=== PATIENT | female | born 1990 | race Caucasian/White ===

== ENCOUNTER 2017-06-01 02:31 | Emergency (ER) | payer MEDICARE, MEDICAID ==
[2015-03-27 08:58] VITALS: Ht 167.6 cm; Wt 97.5 kg
[~2017-06-01] VITALS: Ht 167.6 cm; Wt 97.5 kg
[~2017-06-01 02:31] MED LIST: ACE3 PO; ACET-1966 PO; ACET500T68 PO; ALBU8.5H IH; ALBUDR INH; AMO500 PO; AMOX-362 PO; AMOX-559 PO; ANTIDEPRESSENT; ASPI-663 PO; AUG500 PO; AZIT-1 PO; AZIT1PAC21 PO; AZIT500T47 PO; BACDS PO; BACL-51 PO; CALC-515 PO; CEP500 PO; CEPH-13 PO; CEPH500C24 PO; CHLO473M14 MM; CIP500 PO; CIPR-326 PO; CODE473S6 PO; CYC10 PO; CYCL10TA29 PO; DEPO SHOT; DIC10 PO; DICL-195 PO; DIPH-1 PO; DOXY-179 PO; DOXY150T6 PO; FEXO-67; FEXO-67 PO; FLUO-202 PO; GUAI-334 PO; HYDR-4309 PO; HYDR2TAB74 PO; IBU600 PO; IBUP-1671 PO; IBUP-56 PO; IBUP800T37 PO; LOR5 PO; LOR5/325 PO; LOR75 PO; MED150I IM; MET10 PO; METH-543 PO; METH4TAB66 PO; METR250 PO; MON10; MON10 PO; NAP550 PO; NAPR-724 PO; NAPR275T86 PO; NAPR500T75 PO; NO; NO ROUTINE MEDS; NO RTN MEDS; OMEP-218 PO; OND4 PO; ONDA4TAB PO; OXYC-373 PO; OXYC-689 PO; OXYC-865 PO; PANT40TA65 PO; PEN250 PO; PENI-24 PO; PER PO; PNV1TABL70 PO; PRE10; PRED-314 PO; PREN-85 PO; PRO25 PO; PROAIRPT; PROAIRPT IH; PROM-100 PO; PROM-110 PO; PROM25S PR; TIZA4CAP PO; TRA50 PO; TRAZ-156 PO; TYLENOL; VITA1CAP50 PO; [UNRECOGNIZED DRUG - CODE] PO; [UNRECOGNIZED DRUG - CODE] PO
--- NOTE | 2017-06-01 02:38 | ER Report ---
History and Physical Time Seen By MD: 02:37 HPI/ROS CHIEF COMPLAINT: Right arm pain HISTORY OF PRESENT ILLNESS: 26-year-old female presents ambulatory to the ER complaining of right arm pain which woke her from her sleep. She describes throbbing 8/10 pain aggravated by movement and palpation. Patient's 3 weeks out from a dog bite involving his right upper extremity. She had 3 lacerations which were sutured closed. She was treated with Augmentin. Her sutures removed in 7 days. Patient's now approximately 3 weeks out. There is still some soft tissue swelling. There is no evidence of infection. Patient has not been using the hand. There is severe atrophy. Patient apparently was seen by her primary care physician and referred [facility] for a orthopedic evaluation. That appointment is on June 09. Patient states she ran out of her Vicodin 2 weeks ago, prescribed by her primary care doctor, Dr. Handy. Patient unfortunately is on a treatment program here in the ER restricting use of opiates. Allergies: Coded Allergies: latex (Verified Allergy, Intermediate, RASH, 06/01/17) ketorolac (Verified Allergy, Mild, RASH, 06/01/17) tramadol (Verified Allergy, Unknown, RASH, 06/01/17) Uncoded Allergies: BLUEBERRY (Allergy, Severe, ANAPHYLAXIS, 02/20/12) BAND-AIDES (Allergy, Mild, RASH, 11/02/10) Home Meds Reported Medications Trazodone Hcl (TRAZODONE HCL) 50 Mg Tablet, 50 MG PO QHS 05/11/17 Fluoxetine Hcl (PROZAC) 20 Mg Capsule, 20 MG PO QDAY, CAPSULE 05/11/17 Pantoprazole Sodium (PANTOPRAZOLE SODIUM) 40 Mg Tablet.dr, 40 MG PO QDAY, TAB.SR 10/29/16 Discontinued Scripts Amoxicillin/Pot Clav 875-125 Mg Tab (AUGMENTIN 875-125 TABLET) 1 Each Tablet, 1 TAB PO Q12H, #20 TAB 0 Refills Prov:CORAL GOLDSTEIN MD 05/12/17 Hx Smoking: Yes (1/2 PPD FOR EIGHT YEARS) Smoking Status: Current: Every Day Smoker, Light Tobacco Smoker Exposure to Second Hand Smoke?: Yes Hx Substance Use Disorder: No Hx Alcohol Use: No Constitutional Vital Sign - Last 24 Hours 06/01/17 06/01/17 02:37 03:01 Temp 97.9 Pulse 71 65 Resp 20 14 B/P (MAP) 118/78 109/70 (83) Pulse Ox 96 95 O2 Delivery Room Air Room Air Physical Exam General appearance: Alert no distress. Respiratory: Chest is non tender, lungs are clear to auscultation. Cardiac: Regular rate and rhythm Extremities: Right upper extremity has some well-healed lacerations. There is some edema to the hand and wrist. There is minimal tenderness on palpation. Patient has significantly decreased range of motion. There is no warmth, redness or fluctuance noted on palpation. All digits are neurovascularly intact. DIFFERENTIAL DIAGNOSIS: After history and physical exam differential diagnosis was considered for tendinitis, arthritis, disuse, atrophy, neuropathy. Medical Decision Making ED Course/Re-evaluation ED Course Patient was admitted to an examination room. H&P was done. The differential diagnoses was considered. On clinical examination. She has a neurovascularly intact right hand. There is significant tenderness and pain with passive movement of the fingers and wrist. There is no erythema, warmth or fluctuance noted on palpation. Patient is on a restricted treatment plan the opiates are allowed. Patient has allergies to NSAIDs, Toradol, and ketorolac. Patient advised to take Tylenol for pain and follow-up with her primary care who prescribed her opiate pain relievers. Patient was given Decadron 4 mg to reduce the inflammation in her hand. She is advised to apply warm compresses or heating pad and perform gentle range of motion exercises. She was advised to follow-up with primary care for referral to physical therapy to strengthen and break up scar tissue. Decision to Disposition Date: Jun 01, 2017 Decision to Disposition Time: 02:51 Depart Departure Latest Vital Signs Vital Signs Date Time Temp Pulse Resp B/P (MAP) Pulse Ox O2 Delivery O2 Flow Rate FiO2 06/01/17 03:01 65 14 109/70 (83) 95 Room Air 06/01/17 02:37 97.9 Impression: Primary Impression: Right arm pain Additional Impression: History of dog bite Condition: Improved Disposition: HOME OR SELF-CARE Referrals: JORDAN HANDY DO (PCP) Patient Instructions: Arm Pain (ED) Additional Instructions: Apply a heating pad to your hand lash arm for 30-60 minutes, then do gentle range of motion exercises to break up the scar tissue that developed Alternate ibuprofen 600 mg and Tylenol 650 mg every 4 hours as needed for pain relief Follow-up with your primary care Dr. Handy for referral for physical therapy [facility] Problem Qualifiers CAPO VARGAS DO Jun 01, 2017 02:38
[2017-06-01] MEDS ORDERED: DEXAMETHASONE 4 MG TAB PO ONE (02:55)
[2017-06-01 03:01] VITALS: BP 109/70
== END 2017-06-01 03:05 | disposition home or self-care (01) ==
LOC: ER 02:41
DX: M79.601 Pain in right arm (principal)
CPT/HCPCS: 99282; J8540

== ENCOUNTER 2017-07-19 16:31 | Emergency (ER) | payer MEDICARE, MEDICAID ==
[2015-03-27 08:58] VITALS: BMI 32.8
[~2017-07-19 16:31] MED LIST changes: -NAPR-724 PO; +NAPR500T31 PO
[2017-07-19] MEDS ORDERED: AMOXICILLIN 500 MG CAP PO ONE (16:40)
--- NOTE | 2017-07-19 16:52 | ER Report ---
History and Physical Time Seen By MD: 16:41 Hx. of Stated Complaint: DENTAL PAIN FOR 1 WEEK HPI/ROS CHIEF COMPLAINT: Dental pain HISTORY OF PRESENT ILLNESS: Patient is a 26-year-old female with complaint of left lower dental pain. Pain began approximately one week ago but became very severe last night into this morning. She is tried Clove oil she has tried Orajel and Tylenol without significant relief of pain. Allergies: Coded Allergies: latex (Verified Allergy, Intermediate, RASH, 06/01/17) ketorolac (Verified Allergy, Mild, RASH, 06/01/17) tramadol (Verified Allergy, Unknown, RASH, 06/01/17) Uncoded Allergies: BLUEBERRY (Allergy, Severe, ANAPHYLAXIS, 02/20/12) BAND-AIDES (Allergy, Mild, RASH, 11/02/10) Home Meds Reported Medications Trazodone Hcl (TRAZODONE HCL) 50 Mg Tablet, 50 MG PO QHS 05/11/17 Fluoxetine Hcl (PROZAC) 20 Mg Capsule, 20 MG PO QDAY, CAPSULE 05/11/17 Pantoprazole Sodium (PANTOPRAZOLE SODIUM) 40 Mg Tablet.dr, 40 MG PO QDAY, TAB.SR 10/29/16 Past Medical/Surgical History Noncontributory Hx Smoking: Yes (1/2 PPD FOR EIGHT YEARS) Smoking Status: Current: Every Day Smoker, Light Tobacco Smoker Exposure to Second Hand Smoke?: Yes Hx Substance Use Disorder: No Hx Alcohol Use: No Constitutional Vital Sign - Last 24 Hours 07/19/17 16:37 Pulse 111 Resp 20 B/P (MAP) 134/74 Pulse Ox 96 O2 Delivery Room Air Physical Exam General Appearance: Alert, no distress. Eyes: Pupils equal and round no pallor or injection. ENT, Mouth: Ears: Tympanic membranes are normal. Nose: No bleeding. Mouth: Mucous membranes are moist. Patient with impacted wisdom tooth left mandibular molar with inflammation to the gingiva no evidence of abscess Throat: No erythema or exudates there is no tonsillar hypertrophy and uvula is midline. Musculoskeletal: Neck is supple non tender, no adenopathy. Skin: Warm and dry, no rashes. Medical Decision Making ED Course/Re-evaluation ED Course 07/19/2017 4:45:01 pm plan at this time will be oral pain medication antibiotics and referral to dentist Decision to Disposition Date: Jul 19, 2017 Decision to Disposition Time: 16:55 Depart Departure Latest Vital Signs Vital Signs Date Time Temp Pulse Resp B/P (MAP) Pulse Ox O2 Delivery O2 Flow Rate FiO2 07/19/17 16:37 111 20 134/74 96 Room Air Impression: Primary Impression: Pain, dental Condition: Improved Disposition: HOME OR SELF-CARE Referrals: JORDAN HANDY DO (PCP) New Scripts Oxycodone Hcl/Acetaminophen (PERCOCET 5-325 MG TABLET) 1 Each Tablet 1 EACH PO Q4H for PAIN, #25 TAB 0 Refills Prov: RAMON KAY MD 07/19/17 Amoxicillin (AMOXICILLIN) 500 Mg Capsule 1 CAP PO Q8H, #21 CAPSULE 0 Refills TAKE ONE CAPSULE BY MOUTH EVERY 8 HOURS Prov: RAMON KAY MD 07/19/17 Patient Instructions: Dental Caries (DC) Additional Instructions: Schedule a follow-up appointment with your dentist as soon as possible RAMON KAY MD Jul 19, 2017 16:52
[2017-07-19] MEDS ORDERED: OXYC-865 PO (17:01)
[2017-07-19] MEDS ORDERED: AMOX-362 PO (17:01)
[2017-07-19 17:13] VITALS: BP 111/64
== END 2017-07-19 17:15 | disposition home or self-care (01) ==
LOC: ER 16:37
DX: K08.89 Other specified disorders of teeth and supporting structures (principal)
CPT/HCPCS: 99283; A9270

== ENCOUNTER 2017-08-02 00:06 | Emergency (ER) | payer MEDICARE, MEDICAID ==
[2015-03-27 08:58] VITALS: Ht 165.1 cm; Wt 102.1 kg
[~2017-08-02] VITALS: Ht 165.1 cm; Wt 102.1 kg
--- NOTE | 2017-08-02 00:09 | ER Report ---
History and Physical Time Seen By MD: 00:08 HPI/ROS CHIEF COMPLAINT: Right upper quadrant pain HISTORY OF PRESENT ILLNESS: 26-year-old female presents ambulatory to the ER complaining of sharp right middle quadrant and right flank pain for one week. Become much worse over the last 48 hours. She is concerned she may have an appendicitis. Patient notes severe nausea but no vomiting. She denies diarrhea or dysuria. She is status post partial hysterectomy. Patient denies history of kidney stones. Review old records shows patient was seen here approximately 10 days ago treated for tooth abscess with amoxicillin and Percocet. REVIEW OF SYSTEMS: Respiratory: No cough, no dyspnea. Cardiovascular: No chest pain, no palpitations. Gastrointestinal: As above Musculoskeletal: As above Allergies: Coded Allergies: latex (Verified Allergy, Intermediate, RASH, 08/02/17) ketorolac (Verified Allergy, Mild, RASH, 08/02/17) tramadol (Verified Allergy, Unknown, RASH, 08/02/17) Uncoded Allergies: BLUEBERRY (Allergy, Severe, ANAPHYLAXIS, 02/20/12) BAND-AIDES (Allergy, Mild, RASH, 11/02/10) Home Meds Active Scripts Promethazine Hcl (PROMETHAZINE HCL) 25 Mg Tablet, 25 MG PO Q4H Y for NAUSEA/ VOMITING, #14 TAB Prov:CAPO VARGAS DO 08/02/17 Reported Medications Trazodone Hcl (TRAZODONE HCL) 50 Mg Tablet, 50 MG PO QHS 05/11/17 Fluoxetine Hcl (PROZAC) 20 Mg Capsule, 20 MG PO QDAY, CAPSULE 05/11/17 Pantoprazole Sodium (PANTOPRAZOLE SODIUM) 40 Mg Tablet.dr, 40 MG PO QDAY, TAB.SR 10/29/16 Discontinued Scripts Oxycodone Hcl/Acetaminophen (PERCOCET 5-325 MG TABLET) 1 Each Tablet, 1 EACH PO Q4H for PAIN, #25 TAB 0 Refills Prov:RAMON KAY MD 07/19/17 Amoxicillin (AMOXICILLIN) 500 Mg Capsule, 1 CAP PO Q8H, #21 CAPSULE 0 Refills TAKE ONE CAPSULE BY MOUTH EVERY 8 HOURS Prov:RAMON KAY MD 07/19/17 Reviewed Nurses Notes: Yes Old Medical Records Reviewed: Yes Hx Smoking: Yes (1/2 PPD FOR EIGHT YEARS) Smoking Status: Current: Every Day Smoker, Light Tobacco Smoker Exposure to Second Hand Smoke?: Yes Hx Substance Use Disorder: No Hx Alcohol Use: No Constitutional Vital Sign - Last 24 Hours 08/02/17 08/02/17 08/02/17 08/02/17 00:06 00:16 00:18 00:21 Temp 98.4 Pulse ??? 76 76 Resp 20 B/P (MAP) 126/73 (90) 126/73 Pulse Ox 92 91 O2 Delivery Room Air 08/02/17 08/02/17 08/02/17 08/02/17 00:26 00:30 00:36 00:51 Pulse 81 60 B/P (MAP) 116/71 (86) 116/75 (89) Pulse Ox 92 95 08/02/17 08/02/17 08/02/17 08/02/17 01:21 01:30 01:36 01:41 Pulse 58 62 61 B/P (MAP) 106/55 (72) Pulse Ox 97 96 96 08/02/17 08/02/17 08/02/17 08/02/17 01:56 02:00 02:11 02:20 Pulse 82 55 ??? B/P (MAP) 113/76 (88) Pulse Ox 96 97 Physical Exam General Appearance: The patient is alert, has no immediate need for airway protection and no current signs of toxicity. Vital signs stable, afebrile, pulse ox normal HEENT: Pupils equal and round no injection. Oropharynx without redness or exudate Respiratory: Chest is non tender, lungs are clear to auscultation. Cardiac: regular rate and rhythm Gastrointestinal: Abdomen is soft, moderate right upper and middle quadrant tenderness, no CVA tenderness, mild right lower quadrant tenderness with guarding but no rebound, no masses, bowel sounds normal. Musculoskeletal: Neck: Neck is supple and non tender. No lymphadenopathy Extremities have full range of motion and are non tender. Skin: No rashes or lesions. DIFFERENTIAL DIAGNOSIS: After history and physical exam differential diagnosis was considered for abdominal pain including but not limited to appendicitis, cholecystitis, gastritis and urinary tract infection. Medical Decision Making Data Points Result Diagram: 08/02/17 0022 08/02/17 0022 Laboratory Hematology Test 08/02/17 00:22 Red Blood Count 4.80 M/uL (4.17-5.56) Mean Corpuscular Volume 87.8 fL (80.0-96.0) Mean Corpuscular Hemoglobin 31.3 pg (26.0-33.0) Mean Corpuscular Hemoglobin Concent 35.6 g/dL (32.0-36.0) Red Cell Distribution Width 13.0 % (11.5-14.5) Mean Platelet Volume 7.5 fL (7.2-11.1) Neutrophils (%) (Auto) 58.6 % (39.4-72.5) Lymphocytes (%) (Auto) 33.0 % (17.6-49.6) Monocytes (%) (Auto) 4.8 % (4.1-12.4) Eosinophils (%) (Auto) 2.6 % (0.4-6.7) Basophils (%) (Auto) 1.0 % (0.3-1.4) Nucleated RBC Relative Count (auto) 0.0 /100WBC Neutrophils # (Auto) 4.9 K/uL (2.0-7.4) Lymphocytes # (Auto) 2.8 K/uL (1.3-3.6) Monocytes # (Auto) 0.4 K/uL (0.3-1.0) Eosinophils # (Auto) 0.2 K/uL (0.0-0.5) Basophils # (Auto) 0.1 K/uL (0.0-0.1) Nucleated RBC Absolute Count (auto) 0.00 K/uL Urine Color Yellow Urine Clarity Clear Urine pH 8.5 pH (4.8-9.5) Urine Specific Biddle 1.005 Urine Protein Trace mg/dL (NEGATIVE) Urine Glucose (UA) Negative mg/dL (NEGATIVE) Urine Ketones Negative mg/dL (NEGATIVE) Urine Blood Negative (NEGATIVE) Urine Nitrite Negative (NEGATIVE) Urine Bilirubin Negative (NEGATIVE) Urine Urobilinogen 0.2 mg/dL (0.2-1.9) Urine Leukocyte Esterase Negative (NEGATIVE) Urine RBC None /HPF (0-2/HPF) Urine WBC <1 /HPF (0-5/HPF) Urine Squamous Epithelial Cells Many /LPF (</=FEW) Urine Bacteria Negative /HPF (NONE-FEW) Urine Mucus None /HPF (NONE-FEW) Urine HCG, Qualitative Negative (NEGATIVE) Sodium Level 136 mmol/L (137-145) Potassium Level 3.8 mmol/L (3.5-5.0) Chloride Level 104 mmol/L (98-107) Carbon Dioxide Level 20 mmol/L (22-31) Blood Urea Nitrogen 15 mg/dl (7-18) Creatinine 0.90 mg/dl (0.52-1.04) Glomerular Filtration Rate Calc > 60.0 Random Glucose 86 mg/dl (75-110) Calcium Level 8.8 mg/dl (8.4-10.2) Total Bilirubin 0.2 mg/dl (0.2-1.3) Aspartate Amino Transf (AST/SGOT) 16 U/L (0-35) Alanine Aminotransferase (ALT/SGPT) 24 U/L (0-56) Alkaline Phosphatase 59 U/L (0-126) Total Protein 7.0 gm/dl (6.3-8.2) Albumin 3.7 g/dl (3.5-5.0) Amylase Level 65 U/L (0-110) Lipase 88 U/L (23-300) Chemistry Test 08/02/17 00:22 White Blood Count 8.3 k/uL (4.5-11.0) Red Blood Count 4.80 M/uL (4.17-5.56) Hemoglobin 15.0 g/dL (12.0-16.0) Hematocrit 42.2 % (34.0-47.0) Mean Corpuscular Volume 87.8 fL (80.0-96.0) Mean Corpuscular Hemoglobin 31.3 pg (26.0-33.0) Mean Corpuscular Hemoglobin Concent 35.6 g/dL (32.0-36.0) Red Cell Distribution Width 13.0 % (11.5-14.5) Platelet Count 222 K/uL (150-450) Mean Platelet Volume 7.5 fL (7.2-11.1) Neutrophils (%) (Auto) 58.6 % (39.4-72.5) Lymphocytes (%) (Auto) 33.0 % (17.6-49.6) Monocytes (%) (Auto) 4.8 % (4.1-12.4) Eosinophils (%) (Auto) 2.6 % (0.4-6.7) Basophils (%) (Auto) 1.0 % (0.3-1.4) Nucleated RBC Relative Count (auto) 0.0 /100WBC Neutrophils # (Auto) 4.9 K/uL (2.0-7.4) Lymphocytes # (Auto) 2.8 K/uL (1.3-3.6) Monocytes # (Auto) 0.4 K/uL (0.3-1.0) Eosinophils # (Auto) 0.2 K/uL (0.0-0.5) Basophils # (Auto) 0.1 K/uL (0.0-0.1) Nucleated RBC Absolute Count (auto) 0.00 K/uL Urine Color Yellow Urine Clarity Clear Urine pH 8.5 pH (4.8-9.5) Urine Specific Biddle 1.005 Urine Protein Trace mg/dL (NEGATIVE) Urine Glucose (UA) Negative mg/dL (NEGATIVE) Urine Ketones Negative mg/dL (NEGATIVE) Urine Blood Negative (NEGATIVE) Urine Nitrite Negative (NEGATIVE) Urine Bilirubin Negative (NEGATIVE) Urine Urobilinogen 0.2 mg/dL (0.2-1.9) Urine Leukocyte Esterase Negative (NEGATIVE) Urine RBC None /HPF (0-2/HPF) Urine WBC <1 /HPF (0-5/HPF) Urine Squamous Epithelial Cells Many /LPF (</=FEW) Urine Bacteria Negative /HPF (NONE-FEW) Urine Mucus None /HPF (NONE-FEW) Urine HCG, Qualitative Negative (NEGATIVE) Glomerular Filtration Rate Calc > 60.0 Calcium Level 8.8 mg/dl (8.4-10.2) Total Bilirubin 0.2 mg/dl (0.2-1.3) Aspartate Amino Transf (AST/SGOT) 16 U/L (0-35) Alanine Aminotransferase (ALT/SGPT) 24 U/L (0-56) Alkaline Phosphatase 59 U/L (0-126) Total Protein 7.0 gm/dl (6.3-8.2) Albumin 3.7 g/dl (3.5-5.0) Amylase Level 65 U/L (0-110) Lipase 88 U/L (23-300) Urinalysis Test 08/02/17 00:22 Urine Color Yellow Urine Clarity Clear Urine pH 8.5 pH (4.8-9.5) Urine Specific Biddle 1.005 Urine Protein Trace mg/dL (NEGATIVE) Urine Glucose (UA) Negative mg/dL (NEGATIVE) Urine Ketones Negative mg/dL (NEGATIVE) Urine Blood Negative (NEGATIVE) Urine Nitrite Negative (NEGATIVE) Urine Bilirubin Negative (NEGATIVE) Urine Urobilinogen 0.2 mg/dL (0.2-1.9) Urine Leukocyte Esterase Negative (NEGATIVE) Urine RBC None /HPF (0-2/HPF) Urine WBC <1 /HPF (0-5/HPF) Urine Squamous Epithelial Cells Many /LPF (</=FEW) Urine Bacteria Negative /HPF (NONE-FEW) Urine Mucus None /HPF (NONE-FEW) Urine HCG, Qualitative Negative (NEGATIVE) EKG/Imaging Imaging Results: CT scan of the abdomen and pelvis with IV contrast was obtained. The results of the study are ABDOMEN/PELVIS WITH CONTRAST HISTORY: Right flank and right lower quadrant pain. COMPARISON: 07/05/2012 and studies dating to 03/09/2009. TECHNIQUE: Axial images were obtained from the lung bases through the symphysis pubis with intravenous contrast. Delayed images were performed. Sagittal and coronal reformats were performed. One of the following dose optimization techniques was utilized in the performance of this exam: Automated exposure control; adjustment of the mA and/ or kV according to the patient's size; or use of an iterative reconstruction technique. Specific details can be referenced in the facility's radiology CT exam operational policy. CONTRAST: 75 mm IV [id number]. FINDINGS: Lower chest: There is minimal atelectasis. Liver: Normal. Gallbladder/biliary: Status post cholecystectomy. No intrahepatic or extrahepatic ductal dilation. Pancreas: Normal. Spleen: Normal. Adrenals: Normal. Kidneys/ureters/bladder: Normal. GI/mesentery/peritoneal cavity: There is a small amount of fluid in the distal esophagus. There is no bowel obstruction. There is no wall thickening or pericolonic stranding. The appendix is normal. There is no intra-abdominal free air or free fluid. Vessels: There is mild, noncalcified, eccentric atherosclerosis of the infrarenal abdominal aorta, greater then expected for age (axial image 79 series 2). No dissection. Nodes: Normal. Pelvis: Uterus is absent. Right ovary is normal. Left ovary is normal and contains a 2.3 cm cyst. Bones/vertebra/soft tissues: There there are numerous Schmorl nodes. There is mild to moderate degenerative change of the spine and there are numerous vacuum clefts. There is a limbus vertebra of L4 anterior superior endplate. There is mild wedging of T9-T10, unchanged, and likely physiologic. There are bilateral L5 pars defects. There is 2 mm anterolisthesis of L5 compared to L4. IMPRESSION: 1. Normal appendix. No findings to account for patient's symptoms. 2. Bilateral L5 pars defects with 2 mm anterolisthesis of L5 compared to L4. 3. 2.3 cm left ovarian cyst. 4. There is a small amount of fluid in the distal esophagus, compatible with gastroesophageal reflux. 5. There is mild, focal, noncalcified atherosclerosis of the infrarenal abdominal aorta, greater than expected for patient age. The study was read by the radiologist. I viewed the images myself on the PACS system. ED Course/Re-evaluation Clinical Indication for ER IV: Hydration, IV Access ED Course She was minute to an examination room. H&P was done. The differential diagnoses was considered. On clinical examination. Patient has significant tenderness in her right middle and right lower quadrant. There is some guarding but no rebound. Patient denies fever or chills. She has nausea but no vomiting. She is concerned she has an appendicitis. Diagnostic evaluation is undertaken. CT scan is unremarkable. Her laboratory studies are unremarkable. Patient's treated with IV Zofran and fluids. She is on a treatment plan restricting use of opiate pain relievers. Patient's offered Toradol, but she is allergic. She is offered tramadol, but she is allergic. Patient was given Tylenol by mouth and Motrin 600 mg by mouth. Patient's results are discussed with her. I suspect she is having colic and constipation secondary to receiving opiate pain relievers 10 days ago. Patient's advise MiraLAX and clear liquid diet Decision to Disposition Date: Aug 02, 2017 Decision to Disposition Time: 02:12 Depart Departure Latest Vital Signs Vital Signs Date Time Temp Pulse Resp B/P (MAP) Pulse Ox O2 Delivery O2 Flow Rate FiO2 08/02/17 02:20 ??? 97 08/02/17 02:00 113/76 (88) 08/02/17 00:18 98.4 20 Room Air Impression: Primary Impression: Abdominal pain Additional Impressions: Colic cramps Constipation Condition: Improved Disposition: HOME OR SELF-CARE Referrals: JORDAN HANDY DO (PCP) New Scripts Promethazine Hcl (PROMETHAZINE HCL) 25 Mg Tablet 25 MG PO Q4H Y for NAUSEA/VOMITING, #14 TAB Prov: CAPO VARGAS DO 08/02/17 Patient Instructions: Abdominal Pain (ED), Clear Liquid Diet (ED) Additional Instructions: Follow clear liquid diet for 24-48 hours Take MiraLAX 2-3 times per day Take one bottle of magnesium's citrate laxative to stimulate emptying of your bowels Use Tylenol and ibuprofen for pain relief Use Phenergan to control nausea Follow-up with primary care if unimproved in 3-5 days Problem Qualifiers Primary Impression: Abdominal pain Abdominal location: right upper quadrant Qualified Codes: R10.11 - Right upper quadrant pain Additional Impressions: Constipation Constipation type: unspecified constipation type Qualified Codes: K59.00 - Constipation, unspecified CAPO VARGAS DO Aug 02, 2017 00:09
[2017-08-02] MEDS ORDERED: ONDANSETRON 4 MG/2 ML VIAL IVP ONE (00:30)
[2017-08-02] MEDS ORDERED: NS(*) 0.9% 1000 ML BAG 1,000 ML IV ONE (00:30)
[2017-08-02 00:38] LABS: PLATELET COUNT, AUTOMATED 222 K/uL (150-450)
[2017-08-02] MEDS ORDERED: IOPAMIDOL 76% 75 ML INFUS BTL 75 ML ONE (00:43)
[2017-08-02] MEDS ORDERED: ACETAMINOPHEN 325 MG TAB PO ONE (01:35)
[2017-08-02] MEDS ORDERED: IBUPROFEN 600 MG TAB PO ONE (01:35)
--- NOTE | 2017-08-02 01:56 | RADIOLOGY IMAGING REPORT ---
FACILITY: [facility] [place] PATIENT NAME: Michelle Feldman : 1990 MR: [id number] V: [id number] EXAM DATE: ORDERING PHYSICIAN: CAPO VARGAS TECHNOLOGIST: Location: [facility] Patient: Michelle Feldman : 1990 Visit/Account:[id number] Date of Sevice: 08/02/2017 ABDOMEN/PELVIS WITH CONTRAST HISTORY: Right flank and right lower quadrant pain. COMPARISON: 07/05/2012 and studies dating to 03/09/2009. TECHNIQUE: Axial images were obtained from the lung bases through the symphysis pubis with intravenou s contrast. Delayed images were performed. Sagittal and coronal reformats were performed. One of the following dose optimization techniques was utilized in the performance of this exam: Autom ated exposure control; adjustment of the mA and/or kV according to the patient's size; or use of an i terative reconstruction technique. Specific details can be referenced in the facility's radiology CT exam operational policy. CONTRAST: 75 mm IV [id number]. FINDINGS: Lower chest: There is minimal atelectasis. Liver: Normal. Gallbladder/biliary: Status post cholecystectomy. No intrahepatic or extrahepatic ductal dilation. Pancreas: Normal. Spleen: Normal. Adrenals: Normal. Kidneys/ureters/bladder: Normal. GI/mesentery/peritoneal cavity: There is a small amount of fluid in the distal esophagus. There is no bowel obstruction. There is no wall thickening or pericolonic stranding. The appendix is normal. The re is no intra-abdominal free air or free fluid. Vessels: There is mild, noncalcified, eccentric atherosclerosis of the infrarenal abdominal aorta, gr eater then expected for age (axial image 79 series 2). No dissection. Nodes: Normal. Pelvis: Uterus is absent. Right ovary is normal. Left ovary is normal and contains a 2.3 cm cyst. Bones/vertebra/soft tissues: There there are numerous Schmorl nodes. There is mild to moderate degene rative change of the spine and there are numerous vacuum clefts. There is a limbus vertebra of L4 ant erior superior endplate. There is mild wedging of T9-T10, unchanged, and likely physiologic. There ar e bilateral L5 pars defects. There is 2 mm anterolisthesis of L5 compared to L4. IMPRESSION: 1. Normal appendix. No findings to account for patient's symptoms. 2. Bilateral L5 pars defects with 2 mm anterolisthesis of L5 compared to L4. 3. 2.3 cm left ovarian cyst. 4. There is a small amount of fluid in the distal esophagus, compatible with gastroesophageal reflux. 5. There is mild, focal, noncalcified atherosclerosis of the infrarenal abdominal aorta, greater than expected for patient age. Report Dictated By: Margie Harrington at 08/02/2017 1:34 AM Report E-Signed By: Margie Harrington at 08/02/2017 1:51 AM WSN:[id number]
[2017-08-02 02:00] VITALS: BP 113/76
[2017-08-02] MEDS ORDERED: PROMETHAZINE HCL 25 MG TAB TH 2 TAB/BOTTLE PO ONE (02:15)
[2017-08-02] MEDS ORDERED: PROM-110 PO (02:15)
== END 2017-08-02 02:26 | disposition home or self-care (01) ==
LOC: ER 00:28
DX: K59.00 Constipation, unspecified (principal); R10.84 Generalized abdominal pain
CPT/HCPCS: 74177; 81001; 81025; 82150; 83690; 85025; 96361; 96374; 99284; A9270; J2405; J7030; Q9967; 82040; 82247; 82310; 82374; 82435; 82565; 82947; 84075; 84132; 84155; 84295; 84450; 84460; 84520

== ENCOUNTER 2017-08-11 17:18 | Emergency (ER) | payer MEDICARE, MEDICAID ==
[2015-03-27 08:58] VITALS: Wt 102.1 kg
--- NOTE | 2017-08-11 17:29 | ER Report ---
History and Physical Time Seen By MD: 17:28 HPI/ROS CHIEF COMPLAINT: dental pain HISTORY OF PRESENT ILLNESS: This is a 26 year old female. She is having dental pain, left lower jaw. Poor dentition, with multiple problems in the past. Taking Ibuprofen and Tylenol without relief. Some swelling under jaw and face associated with this. Allergies: Coded Allergies: latex (Verified Allergy, Intermediate, RASH, 08/11/17) ketorolac (Verified Allergy, Mild, RASH, 08/11/17) tramadol (Verified Allergy, Unknown, RASH, 08/11/17) Uncoded Allergies: BLUEBERRY (Allergy, Severe, ANAPHYLAXIS, 02/20/12) BAND-AIDES (Allergy, Mild, RASH, 11/02/10) Home Meds Active Scripts Amoxicillin (AMOXICILLIN) 500 Mg Capsule, 1 CAP PO Q8H, #30 CAPSULE 0 Refills Prov:CORAL GOLDSTEIN MD 08/11/17 Promethazine Hcl (PROMETHAZINE HCL) 25 Mg Tablet, 25 MG PO Q4H Y for NAUSEA/ VOMITING, #14 TAB Prov:CAPO VARGAS DO 08/02/17 Reported Medications Acetaminophen (TYLENOL EXTRA STRENGTH) 500 Mg Tablet, 1000 MG PO Q4H, TAB 08/11/17 Ibuprofen (IBUPROFEN) 800 Mg Tablet, 2 TAB PO Q4H, TAB 08/11/17 Trazodone Hcl (TRAZODONE HCL) 50 Mg Tablet, 50 MG PO QHS 05/11/17 Fluoxetine Hcl (PROZAC) 20 Mg Capsule, 20 MG PO QDAY, CAPSULE 05/11/17 Pantoprazole Sodium (PANTOPRAZOLE SODIUM) 40 Mg Tablet.dr, 40 MG PO QDAY, TAB.SR 10/29/16 Reviewed Nurses Notes: Yes Hx Smoking: Yes (1/2 PPD FOR EIGHT YEARS) Smoking Status: Current: Every Day Smoker, Light Tobacco Smoker Exposure to Second Hand Smoke?: Yes Hx Substance Use Disorder: No Hx Alcohol Use: No Constitutional Vital Sign - Last 24 Hours 08/11/17 08/11/17 17:26 17:57 Temp 99.3 Pulse 94 Resp 20 B/P (MAP) 125/80 135/91 (106) Pulse Ox 93 O2 Delivery Room Air Physical Exam General: Alert, acute distress due to pain. ENT: having some gun redness. No drainage. No abscess. Pain with palpation of 1st and 2nd molar on lower left. Skin: No rash or redness. Neck: Swelling of lymph nodes on left submandibular Medical Decision Making ED Course/Re-evaluation ED Course Gave Lortab 5/325, 2 tablets now to help with pain and started Amoxicillin. Discussed that I would not be able to send medicines home or prescription for narcotics based on care plan. Decision to Disposition Date: Aug 11, 2017 Decision to Disposition Time: 17:53 Depart Departure Latest Vital Signs Vital Signs Date Time Temp Pulse Resp B/P (MAP) Pulse Ox O2 Delivery O2 Flow Rate FiO2 08/11/17 17:57 135/91 (106) 08/11/17 17:26 99.3 94 20 93 Room Air Impression: Primary Impression: Pain, dental Condition: Improved Disposition: HOME OR SELF-CARE Referrals: JORDAN HANDY DO (PCP) New Scripts Amoxicillin (AMOXICILLIN) 500 Mg Capsule 1 CAP PO Q8H, #30 CAPSULE 0 Refills Prov: CORAL GOLDSTEIN MD 08/11/17 Patient Instructions: Dental Caries (ED) Additional Instructions: Ibuprofen as needed for pain. Amoxicillin 500mg three times a day. Follow-up with your dentist. CORAL GOLDSTEIN MD Aug 11, 2017 17:29
[2017-08-11] MEDS ORDERED: ACET500T68 PO (17:32)
[2017-08-11] MEDS ORDERED: IBUP800T37 PO (17:32)
[2017-08-11] MEDS ORDERED: AMOXICILLIN 500 MG CAP PO ONE (17:45)
[2017-08-11] MEDS ORDERED: APAP/HYDROCODONE 325/5 TAB PO ONE (17:45)
[2017-08-11] MEDS ORDERED: AMOX-362 PO (17:54)
[2017-08-11 17:57] VITALS: BP 135/91
== END 2017-08-11 17:57 | disposition home or self-care (01) ==
LOC: ER 17:34
DX: K08.89 Other specified disorders of teeth and supporting structures (principal)
CPT/HCPCS: 99281; A9270

== ENCOUNTER → 2017-10-28 | Outpatient (CLI) | payer MEDICARE, MEDICAID ==
[2015-03-27 08:58] VITALS: BMI 32.8
[~2017-10-28] MED LIST changes: +HYDR-385 PO
--- NOTE | 2017-10-28 16:19 | RADIOLOGY IMAGING REPORT ---
FACILITY: [facility] PATIENT NAME: Michelle Feldman : 1990 MR: [id number] V: [id number] EXAM DATE: ORDERING PHYSICIAN: JOSE RAFAEL QUARLES TECHNOLOGIST: Location: [facility] [place] Patient: Michelle Feldman : 1990 Visit/Account:[id number] Date of Sevice: 10/28/2017 KNEE RIGHT W/O CONTRAST COMPARISON: None. HISTORY: R knee pain. Right knee surgery 5 years ago. TECHNIQUE: Noncontrast multiplanar MRI of the right knee utilizing T1 weighted and fluid sensitive s equences. CONTRAST: None. FINDINGS: FLUID: No significant effusion or Johnston's cyst. MENISCI: The menisci are intact. TENDONS/LIGAMENTS: The cruciate and medial collateral ligaments, lateral collateral ligamentous comp zan and extensor mechanism are intact. The biceps and popliteus tendons are intact. Intermediate sig nal in the distal semimembranosus tendon consistent with mild tendinosis. The retinacula are intact. MUSCLES: There is no muscle atrophy or edema. CARTILAGE: No significant cartilage loss in the knee. BONES: Normal marrow signal and alignment. OTHER: Negative. IMPRESSION: 1. Mild distal right semimembranosus tendinosis. 2. Otherwise unremarkable right knee. Intact menisci and ligaments. Report Dictated By: Devon Cabrera at 10/28/2017 4:11 PM Report E-Signed By: Devon Cabrera at 10/28/2017 4:15 PM WSN:[id number]
== END ==
LOC: MRI 04:23
PROVIDERS: ATTEND Nurse Practitioner Primary Care
DX: M76.51 Patellar tendinitis, right knee (principal)

== ENCOUNTER → 2017-11-11 | Outpatient (CLI) | payer MEDICARE, MEDICAID ==
[2015-03-27 08:58] VITALS: BMI 32.8
[~2017-11-11] MED LIST changes: +DIAZ-308 PO; +DICL-190 PO; +DICL1ADH32 TD; +EPIN0.3P15 IM; +GABA-549 PO
--- NOTE | 2017-11-11 14:44 | RADIOLOGY IMAGING REPORT ---
FACILITY: [facility] [place] PATIENT NAME: Michelle Feldman : 1990 MR: [id number] V: [id number] EXAM DATE: ORDERING PHYSICIAN: ALVAREZ BINGHAM TECHNOLOGIST: [place] [facility] [place] : 1990 Visit/Account:[id number] Date of Sevice: 11/11/2017 L SPINE W/O CONTRAST COMPARISON: Comparison to report from previous exam dated November 29, 2013 Additional pertinent history: Low back pain for several years causing leg and knee pain. Technique: Multiplanar multisequence lumbar spine MRI was performed without gadolinium enhancement. FINDINGS: Vertebral body heights and alignment: Negative. Vertebral marrow signal: Type II degenerative endplate changes at L2-L3. Multilevel intervertebral d isc herniations noted. There are changes of marrow edema adjacent to an intervertebral disc herniati on involving the inferior anterior endplate of T11 which could represent a more acute intervertebral disc herniation. Distal thoracic cord and conus: Negative. The conus ends at T12-L1. Surrounding soft tissues: Negative. Inspection of the disc spaces reveal the following: L5-S1: Negative. L4-L5: Negative. L3-L4: Negative. L2-L3: Negative. L1-L2: Minimal circumferential disc bulging without significant canal or neural foraminal narrowing. T12-L1: Negative. IMPRESSION: 1. Mild spondylitic change involving the lumbar spine. 2. No underlying canal or neural foraminal narrowing. 3. Findings which could represent an acute intervertebral disc herniation at the level of T11 anteri judit along the inferior endplate. Report Dictated By: Mohit Dailey MD at 11/11/2017 2:35 PM Report E-Signed By: Mohit Dailey MD at 11/11/2017 2:39 PM WSN:[id number]
== END ==
LOC: MRI 11-10 12:03
PROVIDERS: ATTEND Physician Assistant
DX: M47.896 Other spondylosis, lumbar region (principal); M51.26 Other intervertebral disc displacement, lumbar region
CPT/HCPCS: 72148

== ENCOUNTER → 2017-11-11 | Outpatient (CLI) | payer MEDICARE, MEDICAID ==
[2015-03-27 08:58] VITALS: BMI 32.8
--- NOTE | 2017-11-11 15:17 | RADIOLOGY IMAGING REPORT ---
FACILITY: [facility] [place] PATIENT NAME: Michelle Feldman : 1990 MR: [id number] V: [id number] EXAM DATE: ORDERING PHYSICIAN: JEWELL SEYMOUR TECHNOLOGIST: Location: [facility] Patient: Michelle Feldman : 1990 Visit/Account:[id number] Date of Sevice: 11/11/2017 Exam type: ANKLE 2 VIEW RIGHT History: right ankle pain / trauma Comparison: February 01, 2009. Findings: There is no evidence of acute fracture-dislocation involving the right ankle. No significant arthrit ic changes seen IMPRESSION: 1. No acute osteoarticular abnormality of the right ankle is seen Report Dictated By: Jaja Guardado MD at 11/11/2017 3:12 PM Report E-Signed By: Jaja Guardado MD at 11/11/2017 3:13 PM WSN:[email or web address]
--- NOTE | 2017-11-11 15:17 | RADIOLOGY IMAGING REPORT ---
FACILITY: [facility] - [place] PATIENT NAME: Michelle Feldman : 1990 MR: [id number] V: [id number] EXAM DATE: ORDERING PHYSICIAN: JEWELL SEYMOUR TECHNOLOGIST: Location: [facility] Patient: Michelle Feldman : 1990 Visit/Account:[id number] Date of Sevice: 11/11/2017 Exam type: FOOT 3 VIEW RIGHT History: right foot pain / trauma Comparison: September 18, 2011. Findings: There is an oblique lucency along the distal metaphysis of the right fifth metatarsal. The margins a ppear smooth and there for this most likely represents a vascular groove. No evidence of acute fract ure or dislocation seen involving the right foot IMPRESSION: 1. No acute osteoarticular abnormality the right foot Report Dictated By: Jaja Guardado MD at 11/11/2017 3:10 PM Report E-Signed By: Jaja Guardado MD at 11/11/2017 3:12 PM WSN:[email or web address]
== END ==
LOC: RAD 13:20
PROVIDERS: ATTEND Nurse Practitioner Family
DX: M25.571 Pain in right ankle and joints of right foot (principal); M79.671 Pain in right foot

== ENCOUNTER → 2017-11-27 | Outpatient (CLI) | payer MEDICARE, MEDICAID ==
[2015-03-27 08:58] VITALS: BMI 32.8
[~2017-11-27] MED LIST changes: +DULO30CA6 PO; +physical therapy
--- NOTE | 2017-11-27 15:14 | RADIOLOGY IMAGING REPORT ---
[place] [facility] [place] PATIENT NAME: Michelle Feldman : 1990 MR: [id number] V: [id number] EXAM DATE: ORDERING PHYSICIAN: JEWELL SEYMOUR TECHNOLOGIST: [facility] Patient: Michelle Feldman : 1990 Visit/Account:[id number] Date of Sevice: 11/27/2017 T SPINE W/O CONTRAST COMPARISON: None Additional pertinent history: Thoracic back pain Technique: Multiplanar multisequence thoracic spine MRI was performed without gadolinium enhancement. FINDINGS: Vertebral body height and alignment: Negative Marrow signal: Negative Vertebral bodies: Negative Thoracic spinal cord signal: Negative Disc spaces: Negative Canal and neural foramina: Negative Surrounding soft tissues: Negative IMPRESSION: Normal thoracic spine MRI without contrast. Report Dictated By: Mohit Dailey MD at 11/27/2017 3:08 PM Report E-Signed By: Mohit Dailey MD at 11/27/2017 3:10 PM WSN:[id number]
== END ==
LOC: MRI 06:55
PROVIDERS: ATTEND Nurse Practitioner Family
DX: M54.6 Pain in thoracic spine (principal)
CPT/HCPCS: 72146

== ENCOUNTER → 2017-12-01 | Outpatient (CLI) | payer MEDICARE, MEDICAID ==
[2015-03-27 08:58] VITALS: BMI 32.8
[~2017-12-01] MED LIST changes: +DULO60CA56 PO
== END ==
LOC: LAB 15:01
PROVIDERS: ATTEND Nurse Practitioner Family
DX: M25.50 Pain in unspecified joint (principal)
CPT/HCPCS: 36415; 86038; 86200; 86430

== ENCOUNTER → 2017-12-04 | Outpatient (CLI) | payer MEDICARE, MEDICAID ==
[2015-03-27 08:58] VITALS: BMI 32.8
--- NOTE | 2017-12-04 11:35 | RADIOLOGY IMAGING REPORT ---
[place] [facility] [place]: [place] Feldman : 1990 MR: [id number] V: [id number] EXAM DATE: ORDERING PHYSICIAN: JEWELL SEYMOUR TECHNOLOGIST: Location: [facility] Patient: Michlele Feldman : 1990 Visit/Account:[id number] Date of Sevice: 12/04/2017 SACROILIAC JOINTS 3 OR > VIEWS Indication: Pain. Comparison: None available. Findings: There is no acute fracture-dislocation of of the bones of the visualized sacrum and coccyx. The bilateral SI joints are patent. No significant erosive changes identified. The visualized lumbar spine is within normal limits IMPRESSION: 1. Normal examination of the pelvis and sacroiliac joints Report Dictated By: Juno De La Garza at 12/04/2017 11:31 AM Report E-Signed By: Juno De La Garza at 12/04/2017 11:32 AM WSN:[email or web address]
== END ==
LOC: LAB 10:30
PROVIDERS: ATTEND Nurse Practitioner Family
DX: M25.50 Pain in unspecified joint (principal); M54.5 Low back pain; M53.3 Sacrococcygeal disorders, not elsewhere classified
CPT/HCPCS: 36415; 72202; 85651

== ENCOUNTER → 2017-12-08 | Outpatient (CLI) | payer MEDICARE, MEDICAID ==
[2015-03-27 08:58] VITALS: BMI 32.8
[~2017-12-08] MED LIST changes: +GABA-503 PO
== END ==
LOC: LAB 15:31
PROVIDERS: ATTEND Nurse Practitioner Family
DX: R10.9 Unspecified abdominal pain (principal); R82.79 Other abnormal findings on microbiological examination of urine
CPT/HCPCS: 81001; 87088

== ENCOUNTER → 2017-12-17 | Outpatient (CLI) | payer MEDICARE, MEDICAID ==
[2015-03-27 08:58] VITALS: BMI 32.8
[~2017-12-17] MED LIST changes: -TRAZ-156 PO; +TRAZ50TA34 PO
--- NOTE | 2017-12-17 12:01 | RADIOLOGY IMAGING REPORT ---
FACILITY: [facility] PATIENT NAME: Michelle Feldman : 1990 MR: [id number] V: [id number] EXAM DATE: ORDERING PHYSICIAN: JEWELL SEYMOUR TECHNOLOGIST: Location: [facility] Patient: Michelle Feldman : 1990 Visit/Account:[id number] Date of Sevice: 12/17/2017 EXAMINATION: CT Abdomen and Pelvis Without Contrast 12/17/2017 7:35 AM HISTORY: Right flank pain - hematuria TECHNIQUE: Renal stone protocol - Spiral scan was obtained through the kidneys, ureters and bladder without intravenous contrast. One of the following dose optimization techniques was utilized in the performance of this exam: Autom ated exposure control; adjustment of the mA and/or kV according to the patient's size; or use of an i terative reconstruction technique. Specific details can be referenced in the facility's radiology C T exam operational policy. COMPARISON STUDIES: 08/02/2017 exam with contrast. FINDINGS: Right kidney and ureter: No kidney stone or obstruction. Unremarkable unenhanced renal cortex. Left kidney and ureter: No stone or obstruction. Unremarkable unenhanced renal cortex. Bladder: No stone or visible mass. Liver / biliary: Prior cholecystectomy. Pancreas: negative Spleen: negative Adrenal glands: negative Retroperitoneum: negative Pelvic structures: Prior hysterectomy. Right ovary is not visible. Left ovary is unremarkable. Bowel / peritoneum / mesenteries: Normal appendix. No ileocecal area inflammatory change. Large ivonne unt fecal material in the colon. Gas in the distal esophagus. Vessels: negative Musculoskeletal / Body wall: Chronic bilateral L5 pars defects with mild anterolisthesis of L5 on S1, unchanged. Subtle scoliotic spinal curvature. Lymph node assessment: negative Lower chest: negative IMPRESSION: 1. Negative CT evaluation for kidney stone or obstruction. 2. No clear acute etiology for right-sided pain. There is a large amount fecal material in the colo n of uncertain significance with respect to the clinical presentation. Report Dictated By: Timothy Quinteros MD at 12/17/2017 11:50 AM Report E-Signed By: Timothy Quinteros MD at 12/17/2017 11:56 AM WSN:[email or web address]
== END ==
LOC: CT 01:56
PROVIDERS: ATTEND Nurse Practitioner Family
DX: K56.49 Other impaction of intestine (principal); M47.897 Other spondylosis, lumbosacral region; M41.86 Other forms of scoliosis, lumbar region; Z90.710 Acquired absence of both cervix and uterus; Z90.49 Acquired absence of other specified parts of digestive tract
CPT/HCPCS: 74176

== ENCOUNTER → 2017-12-30 | Outpatient (REF) | payer MEDICARE, MEDICAID ==
[2015-03-27 08:58] VITALS: BMI 32.8
[~2017-12-30] MED LIST changes: +MELO-149 PO
== END ==
PROVIDERS: ATTEND Nurse Practitioner Family
DX: M54.9 Dorsalgia, unspecified (principal)
CPT/HCPCS: 80329; 82040; 82247; 82310; 82374; 82435; 82565; 82947; 84075; 84132; 84155; 84295; 84450; 84460; 84520

== ENCOUNTER 2018-01-08 23:12 | Emergency (ER) | payer MEDICARE, MEDICAID ==
[2015-03-27 08:58] VITALS: Wt 113.4 kg
--- NOTE | 2018-01-08 23:20 | ER Report ---
History and Physical Time Seen By MD: 23:19 HPI/ROS CHIEF COMPLAINT: Severe right knee pain HISTORY OF PRESENT ILLNESS: 27-year-old female presents ambulatory to the ER complaining of severe right knee pain. Patient has a long history of ongoing right knee pain. She had arthroscopy a year ago by Dr. Alcaraz in [place]. She apparently was helping a child, bright a bike and twisted her knee, sustaining injury couple weeks ago. She was seen by her primary care and plain x-rays were ordered. Per her report. They are negative. A do not see any x-rays in the computer system under her name for that date. Patient was switched from Naprosyn to meloxicam for pain relief. She is on chronic pain treatment for her back with gabapentin. She's been referred to chronic pain specialist and physical therapy. She has yet to follow-up. Patient notes no fever or chills. She notes severe 8/10 pain without movement, throbbing in nature. She notes that increases to 10 out of 10 with movement. She states she's been taking in excess of the maximum allowable dose of Tylenol for relief. Patient's on a treatment plan here restricting the use of opiates. Review of patient's records show an MRI was performed in 10/16 of her right knee. There was some external tendinitis noted but no other internal pathology was noted. Patient's internal medicine notes show a taper off of hydrocodone. Allergies: Coded Allergies: latex (Verified Allergy, Intermediate, RASH, 08/11/17) ketorolac (Verified Allergy, Mild, RASH, 08/11/17) tramadol (Verified Allergy, Unknown, RASH, 08/11/17) Uncoded Allergies: BLUEBERRY (Allergy, Severe, ANAPHYLAXIS, 02/20/12) BAND-AIDES (Allergy, Mild, RASH, 11/02/10) Home Meds Active Scripts Gabapentin (GABAPENTIN) 600 Mg Tablet, 1 TAB PO TID, #90 CAP 0 Refills Take with 300mg tab for total of 900mg 3 times per day Prov:JEWELL SEYMOUR APRN LEGAL CONSULTANT-C 01/07/18 Gabapentin (GABAPENTIN) 300 Mg Capsule, 1 CAP PO TID, #90 CAP 0 Refills Take with 300mg tab for total of 900mg 3 times per day Prov:JEWELL SEYMOUR APRN LEGAL CONSULTANT-C 01/05/18 Albuterol Sulfate 90 Mcg/Act (PROAIR HFA 90 MCG/ACT) 8.5 Gm Hfa.aer.ad, 2 PUFF IH QID Y for WHEEZING, #1 INHALER 0 Refills Prov:JEWELL SEYMOUR APRN LEGAL CONSULTANT-C 12/29/17 Meloxicam (MOBIC) 7.5 Mg Tablet, 1 TAB PO BID, #60 TAB 0 Refills Prov:JEWELL SEYMOUR APRN LEGAL CONSULTANT-C 12/23/17 Hydrocodone Bit/Acetaminophen (HYDROCODON-ACETAMINOPHEN 5-325) 1 Each Tablet, 1 EACH PO DIRECTED Y for PAIN, #30 TAB 0 Refills 1 tab 4 x daily x 3 days 1 tab 3 x daily x 3 days 1 tab 2 xdaily x 3 days 1 tab daily x 3 days Prov:JEWELL SEYMOUR APRNP-C 12/17/17 Cyclobenzaprine Hcl (CYCLOBENZAPRINE HCL) 10 Mg Tablet, 0.5-1 TAB PO TID Y for MUSCLE SPASMS, #45 TAB 0 Refills Prov:JEWELL SEYMOUR APRN LEGAL CONSULTANT-C 12/08/17 Duloxetine Hcl (CYMBALTA) 60 Mg Capsule.dr, 1 CAP PO QDAY, #90 CAP 0 Refills Prov:JEWELL SEYMOUR APRNP-C 12/01/17 Trazodone Hcl (TRAZODONE HCL) 50 Mg Tablet, 1 TAB PO QHS, #30 TAB 5 Refills Prov:JEWELL SEYMOUR APRNP-C 11/24/17 [physical therapy] No Conflict Check Dx: Back pain evaluation and treatment modalities. 1-3 times per week for 4-6 weeks. Prov:RODOLFO CASTILLO LEGAL CONSULTANT-BC 11/19/17 Epinephrine (EPIPEN 2-KAREEM) 0.3 Mg/0.3 Ml Pen.injctr, 0.3 MG IM ONCE Y for ANAPHYLAXIS, #1 EACH 0 Refills Prov:JEWELL SEYMOUR APRN LEGAL CONSULTANT-C 11/10/17 Reported Medications Gabapentin (GABAPENTIN) 300 Mg Capsule, 3 TAB PO TID 11/10/17 Acetaminophen (TYLENOL EXTRA STRENGTH) 500 Mg Tablet, 1000 MG PO BID, TAB 08/11/17 Pantoprazole Sodium (PANTOPRAZOLE SODIUM) 40 Mg Tablet., 1 TAB PO QDAY, TAB.SR 10/29/16 Reviewed Nurses Notes: Yes Old Medical Records Reviewed: Yes Hx Smoking: Yes (1/2 PPD FOR EIGHT YEARS) Smoking Status: Current: Every Day Smoker, Light Tobacco Smoker Exposure to Second Hand Smoke?: Yes Hx Substance Use Disorder: No Hx Alcohol Use: No Constitutional Vital Sign - Last 24 Hours 01/08/18 01/09/18 23:16 00:01 Temp 99.2 Pulse 107 Resp 20 B/P (MAP) 135/96 117/86 (96) Pulse Ox 98 Physical Exam Vital signs stable, afebrile, pulse ox normal General appearance: Mild distress, skin warm, dry, pink Respiratory: Chest is non tender, lungs are clear to auscultation. Cardiac: Regular rate and rhythm Extremities: There is a healed abrasion over the distal aspect of the patella. There is no evidence of cellulitis or fluid. There is minimal pain with palpation actually pain out of proportion to clinical presentation. Stressing of the ligaments reveals pain out of proportion to clinical findings. There is no joint effusion noted. Patient is able to move the knee with some active range of motion. She is unable to tolerate Kimberly's maneuver. All ligaments are intact on stressing. DIFFERENTIAL DIAGNOSIS: After history and physical exam differential diagnosis was considered for sprain, strain, fracture, dislocation, contusion, meniscus injury, chondromalacia, drug-seeking behavior Medical Decision Making EKG/Imaging Imaging Old MRI from 10/16 reviewed Unable to locate recent plain films. The patient states she had taken here. ED Course/Re-evaluation ED Course Patient was admitted to an examination room. H&P was done. The differential diagnoses was considered. Patient with severe right knee pain. Recent MRI and plain films show no acute pathology, per patient report. Patient states she's been taking Tylenol excess. She is cautioned, resume normal doses of Tylenol as appropriate. Patient advised to continue on her meloxicam. She is advised to follow-up as advised with her primary care and orthopedics Decision to Disposition Date: Jan 08, 2018 Decision to Disposition Time: 23:38 Depart Departure Latest Vital Signs Vital Signs Date Time Temp Pulse Resp B/P (MAP) Pulse Ox O2 Delivery O2 Flow Rate FiO2 01/09/18 00:01 117/86 (96) 01/08/18 23:16 99.2 107 20 98 Impression: Primary Impression: Right knee pain Additional Impression: Chronic back pain Condition: Improved Disposition: HOME OR SELF-CARE Referrals: JEWELL SEYMOUR APRN LEGAL CONSULTANT-C (PCP) Patient Instructions: Knee Pain (ED) Additional Instructions: Follow-up with primary care as planned Follow-up with your previous orthopedic surgeon, Dr. Alcaraz who performed here previous arthroscopic surgery in [place] Problem Qualifiers Primary Impression: Right knee pain Chronicity: chronic Qualified Codes: M25.561 - Pain in right knee; G89.29 - Other chronic pain Additional Impression: Chronic back pain Back pain location: low back pain Back pain laterality: unspecified Sciatica presence: without sciatica Qualified Codes: M54.5 - Low back pain; G89.29 - Other chronic pain CAPO VARGAS DO Jan 08, 2018 23:19
[2018-01-09 00:01] VITALS: BP 117/86
[2018-01-12] MEDS ORDERED: BACL-1 PO (13:42)
[2018-01-12] MEDS ORDERED: FLUO-202 PO (13:48)
== END 2018-01-09 00:03 | disposition home or self-care (01) ==
LOC: ER 23:21
DX: M25.561 Pain in right knee (principal); G89.29 Other chronic pain; M54.5 Low back pain
CPT/HCPCS: 99281; L1830

== ENCOUNTER 2018-01-13 17:45 | Inpatient (IN) | payer MEDICARE, MEDICAID ==
[~2018-01-13] VITALS: Ht 167.6 cm; Wt 115.7 kg
[~2018-01-13 17:45] MED LIST changes: +BACL-1 PO
[2018-01-13 18:07] LABS: PLATELET COUNT, AUTOMATED 296 K/uL (150-450)
--- NOTE | 2018-01-13 18:16 | ER Report ---
History and Physical Time Seen By MD: 17:47 Hx. of Stated Complaint: ABDOMINAL PAIN FROM TAKING 1500MG OF TYLENOL 5 TIMES A DAY, DOESN'T DRINK WATER , TAKES MEDS FOR BACK PAIN AND KNEE PAIN. WILL SEE A PAIN SPECIALIST ON THE /ROS CHIEF COMPLAINT: Abdominal pain HISTORY OF PRESENT ILLNESS: Patient is a 27-year-old female who presents the ED with complaint of abdominal pain for the past day. She states that her abdomen is hurting from taking too much Tylenol. She states that she is taking 1500 mg of Tylenol at a time and taking this 5 times a day. She states that she has been doing this for the past week. She states that she does this because she has chronic knee and back pain. She states that she does have an appointment with a pain specialist next week but her primary care provider has discontinued her narcotics at this point. She does take other medications for pain including gabapentin and naproxen. She has a past surgical history of an cholecystectomy and hysterectomy. Patient denies any nausea or vomiting. REVIEW OF SYSTEMS: Constitutional: No fever, no chills. Cardiovascular: No chest pain, no palpitations. Respiratory: No cough, no shortness of breath. Gastrointestinal: See history of present illness. Genitourinary: No hematuria. Musculoskeletal: No back pain. Skin: No rashes. Neurological: No headache. Allergies: Coded Allergies: latex (Verified Allergy, Intermediate, RASH, 01/13/18) ketorolac (Verified Allergy, Mild, RASH, 01/13/18) tramadol (Verified Allergy, Unknown, RASH, 01/13/18) Uncoded Allergies: BLUEBERRY (Allergy, Severe, ANAPHYLAXIS, 02/20/12) BAND-AIDES (Allergy, Mild, RASH, 11/02/10) Home Meds Active Scripts Gabapentin (GABAPENTIN) 600 Mg Tablet, 1 TAB PO TID, #90 CAP 0 Refills Take with 300mg tab for total of 900mg 3 times per day Prov:JEWELL SEYMOUR APRN DEVULCANIZER CHARGER-C 01/07/18 Gabapentin (GABAPENTIN) 300 Mg Capsule, 1 CAP PO TID, #90 CAP 0 Refills Take with 300mg tab for total of 900mg 3 times per day Prov:JEWELL SEYMOUR APRN DEVULCANIZER CHARGER-C 01/05/18 Albuterol Sulfate 90 Mcg/Act (PROAIR HFA 90 MCG/ACT) 8.5 Gm Hfa.aer.ad, 2 PUFF IH QID Y for WHEEZING, #1 INHALER 0 Refills Prov:JEWELL SEYMOUR APRN DEVULCANIZER CHARGER-C 12/29/17 Cyclobenzaprine Hcl (CYCLOBENZAPRINE HCL) 10 Mg Tablet, 0.5-1 TAB PO TID Y for MUSCLE SPASMS, #45 TAB 0 Refills Prov:JEWELL SEYMOUR APRN DEVULCANIZER CHARGER-C 12/08/17 Trazodone Hcl (TRAZODONE HCL) 50 Mg Tablet, 1 TAB PO QHS, #30 TAB 5 Refills Prov:JEWELL SEYMOUR APRNP-C 11/24/17 Epinephrine (EPIPEN 2-KAREEM) 0.3 Mg/0.3 Ml Pen.injctr, 0.3 MG IM ONCE Y for ANAPHYLAXIS, #1 EACH 0 Refills Prov:JEWELL SEYMOUR APRNP-C 11/10/17 Reported Medications Fluoxetine Hcl (PROZAC) 20 Mg Capsule, 20 MG PO QDAY, CAPSULE 01/12/18 Gabapentin (GABAPENTIN) 300 Mg Capsule, 3 TAB PO TID 11/10/17 Acetaminophen (TYLENOL EXTRA STRENGTH) 500 Mg Tablet, 1000 MG PO BID, TAB 08/11/17 Pantoprazole Sodium (PANTOPRAZOLE SODIUM) 40 Mg Tablet.dr, 1 TAB PO QDAY, TAB.SR 10/29/16 Discontinued Scripts Baclofen (BACLOFEN) 10 Mg Tablet, 1 TAB PO TID Y for PAIN, #30 TAB 0 Refills Prov:JOSE RAFAEL QUARLES DNP, DEVULCANIZER CHARGER-BC 01/12/18 Meloxicam (MOBIC) 7.5 Mg Tablet, 1 TAB PO BID, #60 TAB 0 Refills Prov:JEWELL SEYMOUR APRNP-C 12/23/17 Duloxetine Hcl (CYMBALTA) 60 Mg Capsule.dr, 1 CAP PO QDAY, #90 CAP 0 Refills Prov:JEWELL SEYMOUR APRN DEVULCANIZER CHARGER-C 12/01/17 [physical therapy] No Conflict Check Dx: Back pain evaluation and treatment modalities. 1-3 times per week for 4-6 weeks. Prov:RODOLFO CASTILLO DEVULCANIZER CHARGER-BC 11/19/17 Reviewed Nurses Notes: Yes Old Medical Records Reviewed: Yes Hx Smoking: Yes (1/2 PPD FOR EIGHT YEARS) Smoking Status: Current: Every Day Smoker, Light Tobacco Smoker Exposure to Second Hand Smoke?: Yes Hx Substance Use Disorder: No Hx Alcohol Use: No Constitutional Vital Sign - Last 24 Hours 01/13/18 17:46 Temp 98.7 Pulse 93 Resp 16 B/P (MAP) 123/70 Pulse Ox 97 O2 Delivery Room Air Physical Exam General Appearance: The patient is alert, has no immediate need for airway protection and no signs of toxicity. Patient appears to be no acute distress. Eyes: Pupils equal and round no pallor or injection. ENT, Mouth: Mucous membranes are moist. Respiratory: There are no retractions, lungs are clear to auscultation. Cardiovascular: Regular rate and rhythm. Gastrointestinal: There is epigastric and LUQ tenderness with palpation. Normal BS in all 4 quadrants. Skin: Warm and dry, no rashes. Musculoskeletal: Neck is supple non tender. Extremities are nontender, nonswollen and have full range of motion. DIFFERENTIAL DIAGNOSIS: After history and physical exam differential diagnosis was considered for abdominal pain including but not limited to appendicitis, cholecystitis, gastritis and urinary tract infection. Medical Decision Making Data Points Result Diagram: 01/13/18 1750 01/13/18 1750 Laboratory Hematology Test 01/13/18 17:50 Red Blood Count 4.75 M/uL (4.17-5.56) Mean Corpuscular Volume 87.2 fL (80.0-96.0) Mean Corpuscular Hemoglobin 32.0 pg (26.0-33.0) Mean Corpuscular Hemoglobin Concent 36.7 g/dL (32.0-36.0) Red Cell Distribution Width 12.4 % (11.5-14.5) Mean Platelet Volume 7.2 fL (7.2-11.1) Neutrophils (%) (Auto) 66.1 % (39.4-72.5) Lymphocytes (%) (Auto) 27.3 % (17.6-49.6) Monocytes (%) (Auto) 4.4 % (4.1-12.4) Eosinophils (%) (Auto) 1.4 % (0.4-6.7) Basophils (%) (Auto) 0.8 % (0.3-1.4) Nucleated RBC Relative Count (auto) 0.0 /100WBC Neutrophils # (Auto) 6.2 K/uL (2.0-7.4) Lymphocytes # (Auto) 2.6 K/uL (1.3-3.6) Monocytes # (Auto) 0.4 K/uL (0.3-1.0) Eosinophils # (Auto) 0.1 K/uL (0.0-0.5) Basophils # (Auto) 0.1 K/uL (0.0-0.1) Nucleated RBC Absolute Count (auto) 0.00 K/uL Prothrombin Time 12.4 seconds (12.0-14.4) Prothromb Time International Ratio 0.92 Activated Partial Thromboplast Time 30 seconds (23-35) Sodium Level 138 mmol/L (137-145) Potassium Level 3.9 mmol/L (3.5-5.0) Chloride Level 105 mmol/L (98-107) Carbon Dioxide Level 24 mmol/L (22-31) Blood Urea Nitrogen 8 mg/dl (7-18) Creatinine 0.70 mg/dl (0.52-1.04) Glomerular Filtration Rate Calc > 60.0 Random Glucose 88 mg/dl (75-110) Calcium Level 9.1 mg/dl (8.4-10.2) Total Bilirubin 0.4 mg/dl (0.2-1.3) Aspartate Amino Transf (AST/SGOT) 18 U/L (0-35) Alanine Aminotransferase (ALT/SGPT) 19 U/L (0-56) Alkaline Phosphatase 79 U/L (0-126) Total Protein 7.4 g/dl (6.3-8.2) Albumin 4.2 g/dl (3.5-5.0) Lipase 46 U/L (23-300) Salicylates Level < 10 mg/L Salicylate Last Dose Date unknown Acetaminophen Level 24 ug/ml Chemistry Test 01/13/18 17:50 White Blood Count 9.4 k/uL (4.5-11.0) Red Blood Count 4.75 M/uL (4.17-5.56) Hemoglobin 15.2 g/dL (12.0-16.0) Hematocrit 41.4 % (34.0-47.0) Mean Corpuscular Volume 87.2 fL (80.0-96.0) Mean Corpuscular Hemoglobin 32.0 pg (26.0-33.0) Mean Corpuscular Hemoglobin Concent 36.7 g/dL (32.0-36.0) Red Cell Distribution Width 12.4 % (11.5-14.5) Platelet Count 296 K/uL (150-450) Mean Platelet Volume 7.2 fL (7.2-11.1) Neutrophils (%) (Auto) 66.1 % (39.4-72.5) Lymphocytes (%) (Auto) 27.3 % (17.6-49.6) Monocytes (%) (Auto) 4.4 % (4.1-12.4) Eosinophils (%) (Auto) 1.4 % (0.4-6.7) Basophils (%) (Auto) 0.8 % (0.3-1.4) Nucleated RBC Relative Count (auto) 0.0 /100WBC Neutrophils # (Auto) 6.2 K/uL (2.0-7.4) Lymphocytes # (Auto) 2.6 K/uL (1.3-3.6) Monocytes # (Auto) 0.4 K/uL (0.3-1.0) Eosinophils # (Auto) 0.1 K/uL (0.0-0.5) Basophils # (Auto) 0.1 K/uL (0.0-0.1) Nucleated RBC Absolute Count (auto) 0.00 K/uL Prothrombin Time 12.4 seconds (12.0-14.4) Prothromb Time International Ratio 0.92 Activated Partial Thromboplast Time 30 seconds (23-35) Glomerular Filtration Rate Calc > 60.0 Calcium Level 9.1 mg/dl (8.4-10.2) Total Bilirubin 0.4 mg/dl (0.2-1.3) Aspartate Amino Transf (AST/SGOT) 18 U/L (0-35) Alanine Aminotransferase (ALT/SGPT) 19 U/L (0-56) Alkaline Phosphatase 79 U/L (0-126) Total Protein 7.4 g/dl (6.3-8.2) Albumin 4.2 g/dl (3.5-5.0) Lipase 46 U/L (23-300) Salicylates Level < 10 mg/L Salicylate Last Dose Date unknown Acetaminophen Level 24 ug/ml Coagulation Test 01/13/18 17:50 Prothrombin Time 12.4 seconds Prothromb Time International Ratio 0.92 Activated Partial Thromboplast Time 30 seconds Toxicology Test 01/13/18 17:50 Salicylates Level < 10 mg/L Salicylate Last Dose Date unknown Acetaminophen Level 24 ug/ml EKG/Imaging EKG Interpretation 12 lead EKG: Rhythm: Normal sinus rhythm, rate 79 bpm [place]: normal QRS: normal ST segments: No acute ST changes identified. There is some T-wave inversion in V1 and V2 and T-wave flattening in V3. ED Course/Re-evaluation ED Course Discussed all labs with patient. Also discussed the patient history and labs with poison control. Poison control does recommend giving patient Acetadote protocol for 20 hours. His recommendation is due to the fact that she has taken over 6 g in 24 hours of Tylenol as well as having a Tylenol level at 24. Discussed this with the patient and she is comfortable with the treatment plan. Discussed patient with Dr. Veras, hospitalist, who will accept patient under his care. Decision to Disposition Date: Jan 13, 2018 Decision to Disposition Time: 19:00 Depart Departure Latest Vital Signs Vital Signs Date Time Temp Pulse Resp B/P (MAP) Pulse Ox O2 Delivery O2 Flow Rate FiO2 01/13/18 17:46 98.7 93 16 123/70 97 Room Air Impression: Primary Impression: Tylenol overdose Additional Impression: Chronic pain Condition: Improved Disposition: Admitted from ER Referrals: JEWELL SEYMOUR APRN DEVULCANIZER CHARGER-C (PCP) MD Consult Note: Dr. Veras, Hospitalist Problem Qualifiers Primary Impression: Tylenol overdose Encounter type: initial encounter Injury intent: accidental or unintentional Qualified Codes: T39.1X1A - Poisoning by 4-aminophenol derivatives, accidental (unintentional), initial encounter Additional Impression: Chronic pain Chronic pain type: other chronic pain Qualified Codes: G89.29 - Other chronic pain GREGOR BHAT PA-C Jan 13, 2018 18:16
[2018-01-13 18:43] LABS: INR 0.92
--- NOTE | 2018-01-13 19:14 | EKG ---
FACILITY: [facility] PATIENT NAME: SCOTT RIVERO : [id number] MR: [id number] V: [id number] EXAM DATE: ORDERING PHYSICIAN: GREGOR BHAT TECHNOLOGIST: GIOVANI Test Reason : OD Blood Pressure : / mmHG Vent. Rate : 079 BPM Atrial Rate : 079 BPM P-R Int : 136 ms QRS Dur : 078 ms QT Int : 426 ms P-R-T Axes : 040 081 036 degrees QTc Int : 488 ms Normal sinus rhythm Prolonged QT Abnormal ECG No previous ECGs available Confirmed by JACKIE GASTON ([id number]) on 01/13/2018 9:39:18 PM Referred By: YESICA Confirmed By:JACKIE GASTON
[2018-01-13] MEDS ORDERED: ACETYLCYS IV ONE ×2 (19:15→20:45)
[2018-01-13] MEDS ORDERED: D5W IV ONE ×2 (19:15→20:45)
[2018-01-13 20:15] VITALS: BP 127/89
[2018-01-13] MEDS ORDERED: INFLUENZA VIRUS VAC 0.5 ML SYR IM ONLY ONE (21:15)
--- NOTE | 2018-01-13 21:31 | History & Physical ---
History of Present Illness Chief Complaint Abdominal pain History of Present Illness This patient presented to the emergency room complaining of abdominal pain, nausea, and vomiting. She is under contract through a pain specialist and was taken off narcotics one week ago. She started taking approximately 1500mg of Tylenol up to 5 times daily at that time. Over the last few days she developed abdominal pain, nausea, and vomiting. She denies any suicidal thoughts or intention to harm herself. History Problems: (1) Chronic back pain Status: Acute Home Meds Active Scripts Gabapentin (GABAPENTIN) 600 Mg Tablet, 1 TAB PO TID, #90 CAP 0 Refills Take with 300mg tab for total of 900mg 3 times per day Prov:JEWELL SEYMOUR APRN-C 01/07/18 Gabapentin (GABAPENTIN) 300 Mg Capsule, 1 CAP PO TID, #90 CAP 0 Refills Take with 300mg tab for total of 900mg 3 times per day Prov:JEWELL SEYMOUR APRN-C 01/05/18 Albuterol Sulfate 90 Mcg/Act (PROAIR HFA 90 MCG/ACT) 8.5 Gm Hfa.aer.ad, 2 PUFF IH QID Y for WHEEZING, #1 INHALER 0 Refills Prov:JEWELL SEYMOUR APRN-C 12/29/17 Cyclobenzaprine Hcl (CYCLOBENZAPRINE HCL) 10 Mg Tablet, 0.5-1 TAB PO TID Y for MUSCLE SPASMS, #45 TAB 0 Refills Prov:JEWELL SEYMOUR APRN-C 12/08/17 Trazodone Hcl (TRAZODONE HCL) 50 Mg Tablet, 1 TAB PO QHS, #30 TAB 5 Refills Prov:JEWELL SEYMOUR APRNP-C 11/24/17 Epinephrine (EPIPEN 2-KAREEM) 0.3 Mg/0.3 Ml Pen.injctr, 0.3 MG IM ONCE Y for ANAPHYLAXIS, #1 EACH 0 Refills Prov:JEWELL SEYMOUR APRN-C 11/10/17 Reported Medications Fluoxetine Hcl (PROZAC) 20 Mg Capsule, 20 MG PO QDAY, CAPSULE 01/12/18 Gabapentin (GABAPENTIN) 300 Mg Capsule, 3 TAB PO TID 11/10/17 Acetaminophen (TYLENOL EXTRA STRENGTH) 500 Mg Tablet, 1000 MG PO BID, TAB 3/13/18 Pantoprazole Sodium (PANTOPRAZOLE SODIUM) 40 Mg Tablet.dr, 1 TAB PO QDAY, TAB.SR 10/29/16 Discontinued Scripts Baclofen (BACLOFEN) 10 Mg Tablet, 1 TAB PO TID Y for PAIN, #30 TAB 0 Refills Prov:JOSE RAFAEL QUARLES DNP, RODEO PERFORMER-BC 01/12/18 Meloxicam (MOBIC) 7.5 Mg Tablet, 1 TAB PO BID, #60 TAB 0 Refills Prov:JEWELL SEYMOUR APRN RODEO PERFORMER-C 12/23/17 Duloxetine Hcl (CYMBALTA) 60 Mg Capsule.dr, 1 CAP PO QDAY, #90 CAP 0 Refills Prov:JEWELL SEYMOUR APRN RODEO PERFORMER-C 12/01/17 [physical therapy] No Conflict Check Dx: Back pain evaluation and treatment modalities. 1-3 times per week for 4-6 weeks. Prov:RODOLFO CASTILLO RODEO PERFORMER-BC 11/19/17 Allergies: Coded Allergies: latex (Verified Allergy, Intermediate, RASH, 01/13/18) ketorolac (Verified Allergy, Mild, RASH, 01/13/18) tramadol (Verified Allergy, Unknown, RASH, 01/13/18) Uncoded Allergies: BLUEBERRY (Allergy, Severe, ANAPHYLAXIS, 02/20/12) BAND-AIDES (Allergy, Mild, RASH, 11/02/10) Patient History: FH: asthma MOTHER, Age:53 FH: breast cancer UNSPECIFIED RELATIVES FH: depression BROTHER OR SISTER FH: diabetes mellitus UNSPECIFIED RELATIVES FH: hypertension MOTHER, Age:53 FH: sleep apnea MOTHER, Age:53 FH: stroke FATHER, Age:56 Hx Smoking: Yes (1/2 PPD FOR EIGHT YEARS) Smoking Status: Current: Every Day Smoker, Light Tobacco Smoker Exposure to Second Hand Smoke?: Yes Caffeine Intake: Soda Caffeine/Cups Per Day: 2 TO 3 [place] PER DAY Hx Alcohol Use: No Hx Substance Use Disorder: No Social Drug Use: Never Amount Of Social Drug/s Used: prescription drugs Review of Systems All Systems Reviewed/Normal: Yes, Except as Noted Gastrointestinal: Nausea, Vomiting, Abdominal Pain Exam Vital Signs Vital Signs Date Time Temp Pulse Resp B/P (MAP) Pulse Ox O2 Delivery O2 Flow Rate FiO2 01/13/18 20:15 98.0 01/13/18 17:46 93 16 123/70 97 Room Air Neuro: No Gross deficits Eyes: PERRLA Cardiovascular: Regular Rate and Rhythm Respiratory: Clear to Auscultation GI: Abd Soft and Non-Tender Extremities: No Edema Integumentary: No Cyanosis Medical Decision Making Data Points Result Diagram: 01/13/18174901/13/181749 Item Value Date Time Aspartate Amino Transf (AST/SGOT) 18 U/L 01/13/181749 Alanine Aminotransferase (ALT/SGPT) 19 U/L 01/13/181749 Acetaminophen Level 24 ug/ml 01/13/181749 Assessment and Plan Problems: (1) Tylenol overdose Status: Acute Assessment & Plan: She reports taking up to 1500mg of Tylenol 5 times daily over the last week. Given the chronicity of her dosages, she does not fall into Rum[place] formula. Poison control did recommend that she receive the 20hr infusion of acetylcysteine. The infusion has been started and repeat liver studies are ordered for the morning. Copies to: JEWELL SEYMOUR APRN RODEO PERFORMER-C Venous Thromboembolism Antithrombotics Is Pt On Any Antithrombotics?: No Exam Sepsis Risk: No Definite Risk Problem Qualifiers (1) Tylenol overdose: Encounter type: initial encounter Injury intent: accidental or unintentional Qualified Codes: T39.1X1A - Poisoning by 4-aminophenol derivatives, accidental (unintentional), initial encounter JACKIE GASTON DO Jan 13, 2018 21:31
[2018-01-13 22:09] VITALS: BP 130/91
[2018-01-13] MEDS ORDERED: NAPR220C12 PO (22:20)
[2018-01-13] MEDS ORDERED: LIDOCAINE 5% PATCH TP PRN (23:20)
[2018-01-14] MEDS: ACETYLCYS IVPB ONE ×2 (00:45→01:57)
[2018-01-14] MEDS: D5W IVPB ONE ×2 (00:45→01:57)
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
[2018-01-14 03:22] VITALS: BP 115/80
[2018-01-14 07:53] VITALS: BP 120/95
[2018-01-14 09:13] VITALS: Ht 167.6 cm; Wt 115.7 kg
--- NOTE | 2018-01-14 10:27 | Hospitalist Progress Note ---
Subjective Progress Notes Subjective She reports doing well this AM. She would like to smoke. She states she was "acting up" due to pain. She denies any intent to harm herself. Her family believes she is not a risk as well. She was seen by psychology this AM and feel she is not a risk and she has good support. Physical Exam Vital Signs Date Time Temp Pulse Resp B/P (MAP) Pulse Ox O2 Delivery O2 Flow Rate FiO2 01/14/18 07:53 98.0 92 16 120/95 (103) 95 Room Air General Appearance: Alert, Awake Cardiovascular: Regular Rate and Rhythm Respiratory: Clear to Auscultation GI: Soft and Non-Tender Result Diagram: 01/13/18 1750 01/14/18 0507 Item Value Date Time Albumin 3.3 g/dl L 01/14/18 0507 Total Protein 6.0 g/dl L 01/14/18 0507 Alkaline Phosphatase 56 U/L 01/14/18 0507 Alanine Aminotransferase (ALT/SGPT) 12 U/L 01/14/18 0507 Aspartate Amino Transf (AST/SGOT) 11 U/L 01/14/18 0507 Total Bilirubin 0.2 mg/dl 01/14/18 0507 Calcium Level 8.6 mg/dl 01/14/18 0507 Assessment and Plan Problems: (1) Tylenol overdose Status: Acute Assessment & Plan: She reports taking up to 1500mg of Tylenol 5 times daily over the last week. Given the chronicity of her dosages, she does not fall into [place] formula. Poison control did recommend that she receive the 20hr infusion of acetylcysteine. The infusion has been started and repeat liver studies are still normal. Will plan on finishing her infusion. She reports she understands reason to take the Tylenol only as prescribed/ directions on packaging. As long as recheck labs continue to be normal, she should be able to discharge later today. She will follow up with her counselor, primary care provider, and pain specialist. Exam Sepsis Risk: No Definite Risk Problem Qualifiers (1) Tylenol overdose: Encounter type: initial encounter Injury intent: accidental or unintentional Qualified Codes: T39.1X1A - Poisoning by 4-aminophenol derivatives, accidental (unintentional), initial encounter ERIK WELLS MD Jan 14, 2018 10:26
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
[2018-01-14 11:15] VITALS: BP 125/84
[2018-01-14 15:03] VITALS: BP 113/77
--- NOTE | 2018-01-14 18:49 | Hospitalist Depart ---
Discharge Summary Reason for Hosp/Final Diag: (1) Tylenol overdose Status: Acute Hospital Course & Plan: Probably unintentional, but she reports taking up to 1500mg of Tylenol 5 times daily over the last week. Given the chronicity of her dosages, she does not fall into [facility] nomogram. Poison Control did recommend that she receive the 20hr infusion of acetylcysteine, which she completed without problems. Her repeat liver studies remained normal. She reports she understands reason to take the Tylenol only as prescribed/ directions on packaging. She was seen by psychology who felt she did not pose a risk to herself at this point. She will follow up with her counselor, primary care provider, and pain specialist. Departure Weight (Pounds): 255 Result Diagram: 01/13/18174901/14/181812 Item Value Date Time Sodium Level 138 mmol/L 01/13/18 1750 Potassium Level 3.9 mmol/L 01/13/18 1750 Chloride Level 105 mmol/L 01/13/18 1750 Carbon Dioxide Level 24 mmol/L 01/13/18 175 Blood Urea Nitrogen 8 mg/dl 01/13/18 1750 Creatinine 0.70 mg/dl 01/13/18 1750 Glomerular Filtration Rate Calc > 60.0 01/13/18 175 Random Glucose 88 mg/dl 01/13/18 1750 Calcium Level 9.1 mg/dl 01/13/18 1750 Total Bilirubin 0.4 mg/dl 01/13/18 1750 Aspartate Amino Transf (AST/SGOT) 18 U/L 01/13/18 1750 Alanine Aminotransferase (ALT/SGPT) 19 U/L 01/13/18 1750 Alkaline Phosphatase 79 U/L 01/13/18 1750 Total Protein 7.4 g/dl 01/13/18 1750 Albumin 4.2 g/dl 01/13/18 1750 Lipase 46 U/L 01/13/18 1750 White Blood Count 9.4 k/uL 01/13/18 1750 Hemoglobin 15.2 g/dL 01/13/18 1750 Hematocrit 41.4 % 01/13/18 1750 Platelet Count 296 K/uL 01/13/18 1750 Prothrombin Time 12.4 seconds 01/13/18 1750 Prothromb Time International Ratio 0.92 01/13/18 1750 Activated Partial Thromboplast Time 30 seconds 01/13/18 1750 Acetaminophen Level 24 ug/ml 01/13/18 1750 Salicylates Level < 10 mg/L 01/13/18 1750 Acetaminophen Level < 10 ug/ml 01/14/18 0507 EKG PATIENT NAME: SCOTT RIVERO : [id number] MR: [id number] V: [id number] EXAM DATE: ORDERING PHYSICIAN: GREGOR BHAT TECHNOLOGIST: GIOVANI Test Reason : OD Blood Pressure : / mmHG Vent. Rate : 079 BPM Atrial Rate : 079 BPM P-R Int : 136 ms QRS Dur : 078 ms QT Int : 426 ms P-R-T Axes : 040 081 036 degrees QTc Int : 488 ms Normal sinus rhythm Prolonged QT Abnormal ECG No previous ECGs available Confirmed by JACKIE GASTON ([id number]) on 01/13/2018 9:39:18 PM Referred By: YESICA Confirmed By:JACKIE GASTON Condition: Improved Discharge: Home Time Spent: > 30 min Discharge Instructions Home Meds Active Scripts Gabapentin (GABAPENTIN) 600 Mg Tablet, 1 TAB PO TID, #90 CAP 0 Refills Take with 300mg tab for total of 900mg 3 times per day Prov:JEWELL SEYMOUR APRNP-C 01/07/18 Gabapentin (GABAPENTIN) 300 Mg Capsule, 1 CAP PO TID, #90 CAP 0 Refills Take with 300mg tab for total of 900mg 3 times per day Prov:JEWELL SEYMOUR APRNP-C 01/05/18 Albuterol Sulfate 90 Mcg/Act (PROAIR HFA 90 MCG/ACT) 8.5 Gm Hfa.aer.ad, 2 PUFF IH QID Y for WHEEZING, #1 INHALER 0 Refills Prov:JEWELL SEYMOUR APRNP-C 12/29/17 Cyclobenzaprine Hcl (CYCLOBENZAPRINE HCL) 10 Mg Tablet, 0.5-1 TAB PO TID Y for MUSCLE SPASMS, #45 TAB 0 Refills Prov:JEWELL SEYMOUR APRNP-C 12/08/17 Trazodone Hcl (TRAZODONE HCL) 50 Mg Tablet, 1 TAB PO QHS, #30 TAB 5 Refills Prov:JEWELL SEYMOUR APRNP-C 11/24/17 Epinephrine (EPIPEN 2-KAREEM) 0.3 Mg/0.3 Ml Pen.injctr, 0.3 MG IM ONCE Y for ANAPHYLAXIS, #1 EACH 0 Refills Prov:JEWELL SEYMOUR APRNP-C 11/10/17 Reported Medications Naproxen Sodium (ALEVE) 220 Mg Capsule, 500 MG PO BIDAC, CAPSULE 01/13/18 Fluoxetine Hcl (PROZAC) 20 Mg Capsule, 20 MG PO QDAY, CAPSULE 01/12/18 Gabapentin (GABAPENTIN) 300 Mg Capsule, 3 TAB PO TID 11/10/17 Acetaminophen (TYLENOL EXTRA STRENGTH) 500 Mg Tablet, 1000 MG PO BID, TAB 08/11/17 Discontinued Reported Medications Pantoprazole Sodium (PANTOPRAZOLE SODIUM) 40 Mg Tablet.dr, 1 TAB PO QDAY, TAB.SR 10/29/16 Discontinued Scripts Baclofen (BACLOFEN) 10 Mg Tablet, 1 TAB PO TID Y for PAIN, #30 TAB 0 Refills Prov:JOSE RAFAEL QUARLES DNP PROGRAM/MUSIC DIRECTOR-BC 01/12/18 Meloxicam (MOBIC) 7.5 Mg Tablet, 1 TAB PO BID, #60 TAB 0 Refills Prov:JEWELL SEYMOUR APRNP-C 12/23/17 Duloxetine Hcl (CYMBALTA) 60 Mg Capsule.dr, 1 CAP PO QDAY, #90 CAP 0 Refills Prov:JEWELL SEYMOUR APRN-C 12/01/17 [physical therapy] No Conflict Check Dx: Back pain evaluation and treatment modalities. 1-3 times per week for 4-6 weeks. Prov:RODOLFO CASTILLO PROGRAM/MUSIC DIRECTOR-BC 11/19/17 Diet: Regular Activity: As Tolerated Special Instructions: Follow up with counselor as planned tomorrow. Follow up with pain specialist next week as planned. Follow up with primary care provider (Jewell PELLETIER) in next 5-10 days as well. Copies to: JEWELL SEYMOUR APRNP-C Venous Thromboembolism Antithrombotics Is Pt On Any Antithrombotics?: No Problem Qualifiers (1) Tylenol overdose: Encounter type: initial encounter Injury intent: accidental or unintentional Qualified Codes: T39.1X1A - Poisoning by 4-aminophenol derivatives, accidental (unintentional), initial encounter ERIK WELLS MD Jan 14, 2018 18:49
== END 2018-01-14 18:41 | disposition home or self-care (01) | DRG 918 ==
LOC: ER 18:02 → MED 19:43
PROVIDERS: ADMIT Family Medicine; ATTEND Family Medicine
DX: T39.1X1A Poisoning by 4-Aminophenol derivatives, accidental (unintentional), initial encounter (principal); F17.210 Nicotine dependence, cigarettes, uncomplicated; G89.29 Other chronic pain; Z90.710 Acquired absence of both cervix and uterus; Z88.8 Allergy status to other drugs, medicaments and biological substances; Z90.49 Acquired absence of other specified parts of digestive tract
CPT/HCPCS: 36415; 80329; 82040; 82247; 82310; 82374; 82435; 82565; 82947; 83690; 84075; 84132; 84155; 84295; 84450; 84460; 84520; 85025; 85610; 85730; 93005; 96365; 99284; J0132; J7060; J7070

== ENCOUNTER 2018-01-19 16:16 | Emergency (ER) | payer MEDICARE, MEDICAID ==
[2018-01-14 09:13] VITALS: Wt 115.7 kg
[~2018-01-19 16:16] MED LIST changes: +NAPR220C12 PO
--- NOTE | 2018-01-19 16:36 | ER Report ---
History and Physical Time Seen By MD: 16:36 Hx. of Stated Complaint: DENTAL PAIN TO AND BOTTOM MOLARS R SIDE HPI/ROS CHIEF COMPLAINT: Tooth pain HISTORY OF PRESENT ILLNESS: 27-year-old female patient presents to emergency room with complaint of tooth pain. Patient states she's been having this pain for several days. She's been on amoxicillin for the past 3 days. Patient states that she is not able to tolerate the pain anymore. She denies any improvement with Tylenol or ibuprofen. Patient states that she's not had any fevers or chills. She states she does need to call a dentist to make an appointment. Allergies: Coded Allergies: latex (Verified Allergy, Intermediate, RASH, 01/13/18) ketorolac (Verified Allergy, Mild, RASH, 01/13/18) tramadol (Verified Allergy, Unknown, RASH, 01/13/18) Uncoded Allergies: BLUEBERRY (Allergy, Severe, ANAPHYLAXIS, 02/20/12) BAND-AIDES (Allergy, Mild, RASH, 11/02/10) Home Meds Active Scripts Clindamycin Hcl (CLINDAMYCIN HCL) 300 Mg Capsule, 300 MG PO Q6H, #40 CAPSULE Prov:CARLOTTA LEA 01/19/18 Gabapentin (GABAPENTIN) 600 Mg Tablet, 1 TAB PO TID, #90 CAP 0 Refills Take with 300mg tab for total of 900mg 3 times per day Prov:JEWELL SEYMOUR APRN-C 01/07/18 Gabapentin (GABAPENTIN) 300 Mg Capsule, 1 CAP PO TID, #90 CAP 0 Refills Take with 300mg tab for total of 900mg 3 times per day Prov:JEWELL SEYMOUR APRN-C 01/05/18 Albuterol Sulfate 90 Mcg/Act (PROAIR HFA 90 MCG/ACT) 8.5 Gm Hfa.aer.ad, 2 PUFF IH QID Y for WHEEZING, #1 INHALER 0 Refills Prov:JEWELL SEYMOUR APRN-C 12/29/17 Cyclobenzaprine Hcl (CYCLOBENZAPRINE HCL) 10 Mg Tablet, 0.5-1 TAB PO TID Y for MUSCLE SPASMS, #45 TAB 0 Refills Prov:JEWELL SEYMOUR APRN-C 12/08/17 Trazodone Hcl (TRAZODONE HCL) 50 Mg Tablet, 1 TAB PO QHS, #30 TAB 5 Refills Prov:JEWELL SEYMOUR APRN INCREMENT MANAGER-C 11/24/17 Epinephrine (EPIPEN 2-KAREEM) 0.3 Mg/0.3 Ml Pen.injctr, 0.3 MG IM ONCE Y for ANAPHYLAXIS, #1 EACH 0 Refills Prov:JEWELL SEYMOUR APRNP-C 11/10/17 Reported Medications Naproxen Sodium (ALEVE) 220 Mg Capsule, 500 MG PO BIDAC, CAPSULE 01/13/18 Fluoxetine Hcl (PROZAC) 20 Mg Capsule, 20 MG PO QDAY, CAPSULE 01/12/18 Discontinued Reported Medications Acetaminophen (TYLENOL EXTRA STRENGTH) 500 Mg Tablet, 1000 MG PO BID, TAB 08/11/17 Gabapentin (GABAPENTIN) 300 Mg Capsule, 3 TAB PO TID 11/10/17 Pantoprazole Sodium (PANTOPRAZOLE SODIUM) 40 Mg Tablet.dr, 1 TAB PO QDAY, TAB.SR 10/29/16 Discontinued Scripts Baclofen (BACLOFEN) 10 Mg Tablet, 1 TAB PO TID Y for PAIN, #30 TAB 0 Refills Prov:JOSE RAFAEL QUARLES DNP, INCREMENT MANAGER-BC 01/12/18 Meloxicam (MOBIC) 7.5 Mg Tablet, 1 TAB PO BID, #60 TAB 0 Refills Prov:JEWELL SEYMOUR APRN INCREMENT MANAGER-C 12/23/17 Duloxetine Hcl (CYMBALTA) 60 Mg Capsule.dr, 1 CAP PO QDAY, #90 CAP 0 Refills Prov:JEWELL SEYMOUR APRN INCREMENT MANAGER-C 12/01/17 [physical therapy] No Conflict Check Dx: Back pain evaluation and treatment modalities. 1-3 times per week for 4-6 weeks. Prov:RODOLFO CASTILLO INCREMENT MANAGER-BC 11/19/17 Hx Smoking: Yes (1/2 ppd) Smoking Status: Current: Every Day Smoker Exposure to Second Hand Smoke?: Yes Hx Substance Use Disorder: No Hx Alcohol Use: No Constitutional Vital Sign - Last 24 Hours 01/19/18 01/19/18 16:22 16:52 Temp 97.5 Pulse 116 91 Resp 18 18 B/P (MAP) 130/87 124/110 (115) Pulse Ox 98 94 O2 Delivery Room Air Room Air Physical Exam General appearance: Alert no distress. Respiratory: Chest is non tender, lungs are clear to auscultation. Cardiac: Regular rate and rhythm. ENT: Tympanic membranes are pearly-lewis, auditory canals are patent, mixed mucous membranes are moist. Patient does have poor. Her teeth, there is no obvious caries that I can see. DIFFERENTIAL DIAGNOSIS: After history and physical exam differential diagnosis was considered for tooth pain, dental abscess, dental infection. Medical Decision Making ED Course/Re-evaluation ED Course Patient was admitted to exam room, history of physical were obtained. Differential diagnoses were considered. On examination patient had teeth that were in poor repair, she is missing several, there is no obvious caries that I was able to see on my physical exam. Lungs are clear, heart is regular. I discussed with patient that I will go ahead and change her antibiotics to clindamycin, as the patient has not had any improvement with the amoxicillin. We will have her follow-up with dentist as soon as possible. Due to her treatment plan I informed her that I was unable to give her any pain medication. Patient verbalized understanding and agreement. I did offer her a nerve block which patient refused. Decision to Disposition Date: Jan 19, 2018 Decision to Disposition Time: 16:42 Depart Departure Latest Vital Signs Vital Signs Date Time Temp Pulse Resp B/P (MAP) Pulse Ox O2 Delivery O2 Flow Rate FiO2 01/19/18 16:52 91 18 124/110 (115) 94 Room Air 01/19/18 16:22 97.5 Impression: Primary Impression: Toothache Condition: Improved Disposition: HOME OR SELF-CARE Referrals: JEWELL SEYMOUR APRNP-C (PCP) New Scripts Clindamycin Hcl (CLINDAMYCIN HCL) 300 Mg Capsule 300 MG PO Q6H, #40 CAPSULE Prov: CARLOTTA LEA 01/19/18 Patient Instructions: Toothache (ED) Additional Instructions: You may take Ibuprofen as needed for pain. Rinse mouth with warm salt water after every meal. Eat soft foods. Follow up with your dentist as soon as possible, call to make an appointment. Return to the ER if condition worsens. CARLOTTA LEA Jan 19, 2018 16:36
[2018-01-19] MEDS ORDERED: CLIN300C99 PO (16:42)
[2018-01-19 16:52] VITALS: BP 124/110
== END 2018-01-19 16:54 | disposition home or self-care (01) ==
LOC: ER 16:24
DX: K08.89 Other specified disorders of teeth and supporting structures (principal)
CPT/HCPCS: 99281

== ENCOUNTER 2018-02-22 20:13 | Emergency (ER) | payer MEDICARE, MEDICAID ==
[2018-01-14 09:13] VITALS: Wt 127.0 kg
[~2018-02-22 20:13] MED LIST changes: +ALB18R IH; +CLIN300C99 PO; +DULO60CA7 PO; +PREG75CA60 PO
--- NOTE | 2018-02-22 20:23 | ER Report ---
History and Physical Time Seen By MD: 20:23 Hx. of Stated Complaint: dental pain to R side in area of 1 upper and 1 lower broken molars, states onset 3 days ago. Has appt next week on Thursday with dentist. Denies fever/chills. HPI/ROS CHIEF COMPLAINT: Dental pain HISTORY OF PRESENT ILLNESS: 27-year-old female presents ambulatory to the ER complaining of 3 days of dental pain on the right upper and lower jaw. Patient claims she has an appointment with dentist next week on Thursday. Patient was seen here approximately a month ago with failed amoxicillin therapy and was switched to clindamycin. She is on a treatment plan that restricts opiate pain relievers being prescribed. Patient states she is unable to get relief with Tylenol and ibuprofen. REVIEW OF SYSTEMS: Respiratory: No cough, no dyspnea. Cardiovascular: No chest pain, no palpitations. Gastrointestinal: No vomiting, no abdominal pain. Musculoskeletal: No back pain. Allergies: Coded Allergies: latex (Verified Allergy, Intermediate, RASH, 01/13/18) ketorolac (Verified Allergy, Mild, RASH, 01/13/18) tramadol (Verified Allergy, Unknown, RASH, 01/13/18) Uncoded Allergies: BLUEBERRY (Allergy, Severe, ANAPHYLAXIS, 02/20/12) BAND-AIDES (Allergy, Mild, RASH, 11/02/10) Home Meds Active Scripts Clindamycin Hcl (CLINDAMYCIN HCL) 300 Mg Capsule, 300 MG PO Q6H for infection, #40 CAPSULE TAKE 1 CAPSULE EVERY SIX HOURS Prov:CAPO VARGAS DO 02/22/18 Albuterol Sulfate (VENTOLIN HFA) 18 Gm Inh, 2 PUFF IH QID PRN for WHEEZING, #1 EACH 0 Refills Prov:JEWELL SEYMOUR APRN STEREO EQUIPMENT INSTALLER-C 01/29/18 Pregabalin (LYRICA) 75 Mg Capsule, 1 CAP PO BID, #60 CAPSULE 0 Refills Prov:JEWELL SEYMOUR APRN STEREO EQUIPMENT INSTALLER-C 01/27/18 Cyclobenzaprine Hcl (CYCLOBENZAPRINE HCL) 10 Mg Tablet, 1 TAB PO TID PRN for MUSCLE SPASMS, #90 TAB 0 Refills Prov:JEWELL SEYMOUR APRN STEREO EQUIPMENT INSTALLER-C 01/26/18 Fluoxetine Hcl (PROZAC) 20 Mg Capsule, 1 CAP PO QDAY, #90 CAPSULE 1 Refill Prov:JEWELL SEYMOUR LUCINDA STEREO EQUIPMENT INSTALLER-C 01/26/18 Clindamycin Hcl (CLINDAMYCIN HCL) 300 Mg Capsule, 300 MG PO Q6H, #40 CAPSULE Prov:CARLOTTA LEA STEREO EQUIPMENT INSTALLER 01/19/18 Trazodone Hcl (TRAZODONE HCL) 50 Mg Tablet, 1 TAB PO QHS, #30 TAB 5 Refills Prov:JEWELL SEYMOUR LUCINDA STEREO EQUIPMENT INSTALLER-C 11/24/17 Epinephrine (EPIPEN 2-KAREEM) 0.3 Mg/0.3 Ml Pen.injctr, 0.3 MG IM ONCE PRN for ANAPHYLAXIS, #1 EACH 0 Refills Prov:JEWELL SEYMOUR LUCINDA STEREO EQUIPMENT INSTALLER-C 11/10/17 Reported Medications Naproxen Sodium (ALEVE) 220 Mg Capsule, 500 MG PO BIDAC, CAPSULE 01/13/18 Hx Smoking: Yes (1/2 ppd) Smoking Status: Current: Every Day Smoker Exposure to Second Hand Smoke?: Yes Hx Substance Use Disorder: No Hx Alcohol Use: No Constitutional Vital Sign - Last 24 Hours 02/22/18 02/22/18 02/22/18 02/22/18 20:13 20:16 20:17 20:28 Temp 98.7 Pulse ??? 99 105 Resp 20 B/P (MAP) 127/82 (97) 127/82 Pulse Ox 96 96 O2 Delivery Room Air 02/22/18 02/22/18 20:30 20:43 Pulse 103 B/P (MAP) 105/80 (88) Pulse Ox 93 Physical Exam General Appearance: The patient is alert, has no immediate need for airway protection and no current signs of toxicity.. Vital signs stable, afebrile, pulse ox normal HEENT: Pupils equal and round no injection. TMs normal, TMJs nontender, examination of the oropharynx reveals a tooth on the right lower jaw single. He with a large carry in advanced periodontal disease. Respiratory: Chest is non tender, lungs are clear to auscultation. Cardiac: regular rate and rhythm Gastrointestinal: Abdomen is soft and non tender, no masses, bowel sounds normal. Musculoskeletal: Neck: Neck is supple and non tender. No lymphadenopathy, some induration is noted and tenderness in the submandibular region Extremities have full range of motion and are non tender. Skin: No rashes or lesions. DIFFERENTIAL DIAGNOSIS: After history and physical exam differential diagnosis was considered for dental pain, tooth abscess, TMJ disorder, sinus infection Medical Decision Making ED Course/Re-evaluation ED Course Patient was admitted to an examination room. H&P was done. The differential diagnoses was considered. On clinical examination, patient appears to have dental pain from dental caries. She claims she hasn't appointed with dentist next Thursday. Patient's treatment plan restricting use of opiates. She is advised to continue ibuprofen and Tylenol. She was offered a dental block but declined. Patient was given a prescription for clindamycin 300 mg 4 times a day for 10 days. Decision to Disposition Date: Feb 22, 2018 Decision to Disposition Time: 20:32 Depart Departure Latest Vital Signs Vital Signs Date Time Temp Pulse Resp B/P (MAP) Pulse Ox O2 Delivery O2 Flow Rate FiO2 02/22/18 20:43 103 93 02/22/18 20:30 105/80 (88) 02/22/18 20:17 98.7 20 Room Air Impression: Primary Impression: Pain, dental Condition: Condition Unchanged Disposition: HOME OR SELF-CARE Referrals: JEWELL SEYMOUR APRN STEREO EQUIPMENT INSTALLER-C (PCP) New Scripts Clindamycin Hcl (CLINDAMYCIN HCL) 300 Mg Capsule 300 MG PO Q6H for infection, #40 CAPSULE TAKE 1 CAPSULE EVERY SIX HOURS Prov: CAPO VARGAS DO 02/22/18 Patient Instructions: Toothache (ED) Additional Instructions: Alternate ibuprofen and Tylenol every 4 hours for pain relief Try Orajel Apply warm compresses to the right side of her face Follow-up with dentist as planned next Thursday CAPO VARGAS DO Feb 22, 2018 20:23
[2018-02-22 20:30] VITALS: BP 105/80
[2018-02-22] MEDS ORDERED: CLIN300C99 PO (20:33)
[2018-02-22] MEDS ORDERED: CLINDAMYCIN 150 MG CAP PO ONE (20:35)
== END 2018-02-22 21:39 | disposition home or self-care (01) ==
LOC: ER 20:37
DX: K08.89 Other specified disorders of teeth and supporting structures (principal)
CPT/HCPCS: 99283; A9270

== ENCOUNTER 2018-04-01 16:49 | Emergency (ER) | payer MEDICARE, MEDICAID ==
[2018-01-14 09:13] VITALS: Wt 127.0 kg
--- NOTE | 2018-04-01 16:59 | ER Report ---
History and Physical Time Seen By MD: 16:58 HPI/ROS CHIEF COMPLAINT: Left lower quadrant pain HISTORY OF PRESENT ILLNESS: This is a 27-year-old female, well-known to the emergency department that presents for left lower quadrant pain. Patient was seen and evaluated by Dr. Hastings 2 days ago, had complaints of abdominal pain. Dr. Hastings ordered an ultrasound, the pelvic ultrasound is showing an uncomplicated left ovarian cyst. Patient states she's been having this abdominal pain for months, but over the last 4 days seemed like it's been increasing in intensity. Patient states the pain is about the same as it was earlier today. Patient states she had a normal bowel movement today. No dysuria. No other complaints. Patient is requesting something for pain shortly after entering the room. Patient was prescribed hydrocodone couple of days ago. No fevers or chills. No nausea or vomiting. No headaches, no rashes. REVIEW OF SYSTEMS: Constitutional: No fever, no chills. Eyes: No discharge. ENT: No sore throat. Cardiovascular: No chest pain, no palpitations. Respiratory: No cough, no shortness of breath. Gastrointestinal: As above. Genitourinary: No hematuria. Musculoskeletal: No back pain. Skin: No rashes. Neurological: No headache. Allergies: Coded Allergies: latex (Verified Allergy, Intermediate, RASH, 04/01/18) ketorolac (Verified Allergy, Mild, RASH, 04/01/18) tramadol (Verified Allergy, Unknown, RASH, 04/01/18) Uncoded Allergies: BLUEBERRY (Allergy, Severe, ANAPHYLAXIS, 02/20/12) BAND-AIDES (Allergy, Mild, RASH, 11/02/10) Home Meds Active Scripts Pregabalin (LYRICA) 75 Mg Capsule, 1 CAP PO BID, #60 CAPSULE 5 Refills Prov:JEWELL SEYMOUR APRN PLANT MAINTENANCE TECHNICIAN-C 03/05/18 Cyclobenzaprine Hcl (CYCLOBENZAPRINE HCL) 10 Mg Tablet, 1 TAB PO TID PRN for MUSCLE SPASMS, #45 TAB 2 Refills Prov:JEWELL SEYMOUR APRN PLANT MAINTENANCE TECHNICIAN-C 03/05/18 Trazodone Hcl (TRAZODONE HCL) 50 Mg Tablet, 2 TAB PO QHS, #60 TAB 5 Refills Prov:JEWELL SEYMOUR APRN PLANT MAINTENANCE TECHNICIAN-C 03/05/18 Albuterol Sulfate (VENTOLIN HFA) 18 Gm Inh, 2 PUFF IH QID PRN for WHEEZING, #1 EACH 0 Refills Prov:JEWELL SEYMOUR LUCINDA PLANT MAINTENANCE TECHNICIAN-C 01/29/18 Fluoxetine Hcl (PROZAC) 20 Mg Capsule, 1 CAP PO QDAY, #90 CAPSULE 1 Refill Prov:ENID SEYMOURDANYELLE JANE PLANT MAINTENANCE TECHNICIAN-C 01/26/18 Epinephrine (EPIPEN 2-KAREEM) 0.3 Mg/0.3 Ml Pen.injctr, 0.3 MG IM ONCE PRN for ANAPHYLAXIS, #1 EACH 0 Refills Prov:JEWELL SEYMOUR LUCINDA PLANT MAINTENANCE TECHNICIAN-C 11/10/17 Reported Medications Naproxen Sodium (ALEVE) 220 Mg Capsule, 500 MG PO BIDAC, CAPSULE 01/13/18 Discontinued Scripts Hydrocodone Bit/Acetaminophen (HYDROCODON-ACETAMINOPHEN 5-325) 1 Each Tablet, 1 EACH PO Q4-6H PRN for pain, #10 TAB 0 Refills Prov:BENI HASTINGS MD 03/30/18 Past Medical/Surgical History The patient had a past medical and surgical history of migraines, morbidly obese, asthma, acid reflux, cholecystitis, cholecystectomy, kidney stone, partial hysterectomy, arthritis, wrist injury, ankle injury, chronic back pain, wears glasses, accidental overdose on Tylenol, depression, anxiety, tubal ligation, tonsils and adenoidectomy. Reviewed Nurses Notes: Yes Hx Smoking: Yes (1/2 ppd) Smoking Status: Current: Every Day Smoker Exposure to Second Hand Smoke?: Yes Hx Substance Use Disorder: No Hx Alcohol Use: No Constitutional Vital Sign - Last 24 Hours 04/01/18 04/01/18 16:58 18:12 Temp 97.6 Pulse 97 78 Resp 24 18 B/P (MAP) 121/78 122/80 (94) Pulse Ox 97 95 O2 Delivery Room Air Room Air Physical Exam General Appearance: The patient is alert, has no immediate need for airway protection and no signs of toxicity. Eyes: Pupils equal and round no pallor or injection. ENT, Mouth: Mucous membranes are moist. Respiratory: There are no retractions, lungs are clear to auscultation. Cardiovascular: Regular rate and rhythm. Gastrointestinal: Abdomen is round, soft, patient jumps when auscultating left lower quadrant, no rebound tenderness. no other complaints. No masses, bowel sounds normal. Neurological: Alert and oriented 4. Moving all extremities. Following all com mands. No focal neuro deficits. Skin: Warm and dry, no rashes. No shingles rash. Musculoskeletal: Neck is supple non tender. Extremities are nontender, nonswollen and have full range of motion. DIFFERENTIAL DIAGNOSIS: After history and physical exam differential diagnosis was considered for abdominal pain in a female including but not limited to ovarian cyst, pelvic inflammatory disease, ovarian torsion, urinary tract infection, and appendicitis. Medical Decision Making Data Points Result Diagram: 04/01/18 17504/01/18 175 Laboratory Hematology Test 04/01/18 16:58 04/01/18 17:50 Urine Color Dorene Urine Clarity Slightly-cloudy Urine pH 5.0 pH (4.8-9.5) Urine Specific [place] 1.033 Urine Protein Negative mg/dL (NEGATIVE) Urine Glucose (UA) Negative mg/dL (NEGATIVE) Urine Ketones Negative mg/dL (NEGATIVE) Urine Blood Negative (NEGATIVE) Urine Nitrite Negative (NEGATIVE) Urine Bilirubin Negative (NEGATIVE) Urine Urobilinogen 2.0 mg/dL (0.2-1.9) Urine Leukocyte Esterase Negative (NEGATIVE) Urine RBC <1 /HPF (0-2/HPF) Urine WBC 1 /HPF (0-5/HPF) Urine Squamous Epithelial Cells Many /LPF (</=FEW) Urine Bacteria Few /HPF (NONE-FEW) Urine Mucus Few /HPF (NONE-FEW) Red Blood Count 5.20 M/uL (4.17-5.56) Mean Corpuscular Volume 85.3 fL (80.0-96.0) Mean Corpuscular Hemoglobin 30.0 pg (26.0-33.0) Mean Corpuscular Hemoglobin Concent 35.1 g/dL (32.0-36.0) Red Cell Distribution Width 12.8 % (11.5-14.5) Mean Platelet Volume 7.4 fL (7.2-11.1) Neutrophils (%) (Auto) 70.8 % (39.4-72.5) Lymphocytes (%) (Auto) 22.5 % (17.6-49.6) Monocytes (%) (Auto) 4.7 % (4.1-12.4) Eosinophils (%) (Auto) 0.9 % (0.4-6.7) Basophils (%) (Auto) 1.1 % (0.3-1.4) Nucleated RBC Relative Count (auto) 0.0 /100WBC Neutrophils # (Auto) 7.9 K/uL (2.0-7.4) Lymphocytes # (Auto) 2.5 K/uL (1.3-3.6) Monocytes # (Auto) 0.5 K/uL (0.3-1.0) Eosinophils # (Auto) 0.1 K/uL (0.0-0.5) Basophils # (Auto) 0.1 K/uL (0.0-0.1) Nucleated RBC Absolute Count (auto) 0.01 K/uL Sodium Level 136 mmol/L (137-145) Potassium Level 3.9 mmol/L (3.5-5.0) Chloride Level 104 mmol/L (98-107) Carbon Dioxide Level 22 mmol/L (22-31) Blood Urea Nitrogen 10 mg/dl (7-18) Creatinine 0.80 mg/dl (0.52-1.04) Glomerular Filtration Rate Calc > 60.0 Random Glucose 99 mg/dl (75-110) Calcium Level 9.2 mg/dl (8.4-10.2) Total Bilirubin 0.4 mg/dl (0.2-1.3) Aspartate Amino Transf (AST/SGOT) 22 U/L (0-35) Alanine Aminotransferase (ALT/SGPT) 22 U/L (0-56) Alkaline Phosphatase 76 U/L (0-126) Total Protein 7.4 g/dl (6.3-8.2) Albumin 3.8 g/dl (3.5-5.0) Chemistry Test 04/01/18 16:58 04/01/18 17:50 Urine Color Dorene Urine Clarity Slightly-cloudy Urine pH 5.0 pH (4.8-9.5) Urine Specific [place] 1.033 Urine Protein Negative mg/dL (NEGATIVE) Urine Glucose (UA) Negative mg/dL (NEGATIVE) Urine Ketones Negative mg/dL (NEGATIVE) Urine Blood Negative (NEGATIVE) Urine Nitrite Negative (NEGATIVE) Urine Bilirubin Negative (NEGATIVE) Urine Urobilinogen 2.0 mg/dL (0.2-1.9) Urine Leukocyte Esterase Negative (NEGATIVE) Urine RBC <1 /HPF (0-2/HPF) Urine WBC 1 /HPF (0-5/HPF) Urine Squamous Epithelial Cells Many /LPF (</=FEW) Urine Bacteria Few /HPF (NONE-FEW) Urine Mucus Few /HPF (NONE-FEW) White Blood Count 11.2 k/uL (4.5-11.0) Red Blood Count 5.20 M/uL (4.17-5.56) Hemoglobin 15.6 g/dL (12.0-16.0) Hematocrit 44.4 % (34.0-47.0) Mean Corpuscular Volume 85.3 fL (80.0-96.0) Mean Corpuscular Hemoglobin 30.0 pg (26.0-33.0) Mean Corpuscular Hemoglobin Concent 35.1 g/dL (32.0-36.0) Red Cell Distribution Width 12.8 % (11.5-14.5) Platelet Count 300 K/uL (150-450) Mean Platelet Volume 7.4 fL (7.2-11.1) Neutrophils (%) (Auto) 70.8 % (39.4-72.5) Lymphocytes (%) (Auto) 22.5 % (17.6-49.6) Monocytes (%) (Auto) 4.7 % (4.1-12.4) Eosinophils (%) (Auto) 0.9 % (0.4-6.7) Basophils (%) (Auto) 1.1 % (0.3-1.4) Nucleated RBC Relative Count (auto) 0.0 /100WBC Neutrophils # (Auto) 7.9 K/uL (2.0-7.4) Lymphocytes # (Auto) 2.5 K/uL (1.3-3.6) Monocytes # (Auto) 0.5 K/uL (0.3-1.0) Eosinophils # (Auto) 0.1 K/uL (0.0-0.5) Basophils # (Auto) 0.1 K/uL (0.0-0.1) Nucleated RBC Absolute Count (auto) 0.01 K/uL Glomerular Filtration Rate Calc > 60.0 Calcium Level 9.2 mg/dl (8.4-10.2) Total Bilirubin 0.4 mg/dl (0.2-1.3) Aspartate Amino Transf (AST/SGOT) 22 U/L (0-35) Alanine Aminotransferase (ALT/SGPT) 22 U/L (0-56) Alkaline Phosphatase 76 U/L (0-126) Total Protein 7.4 g/dl (6.3-8.2) Albumin 3.8 g/dl (3.5-5.0) Urinalysis Test 04/01/18 16:58 Urine Color Dorene Urine Clarity Slightly-cloudy Urine pH 5.0 pH (4.8-9.5) Urine Specific [place] 1.033 Urine Protein Negative mg/dL (NEGATIVE) Urine Glucose (UA) Negative mg/dL (NEGATIVE) Urine Ketones Negative mg/dL (NEGATIVE) Urine Blood Negative (NEGATIVE) Urine Nitrite Negative (NEGATIVE) Urine Bilirubin Negative (NEGATIVE) Urine Urobilinogen 2.0 mg/dL (0.2-1.9) Urine Leukocyte Esterase Negative (NEGATIVE) Urine RBC <1 /HPF (0-2/HPF) Urine WBC 1 /HPF (0-5/HPF) Urine Squamous Epithelial Cells Many /LPF (</=FEW) Urine Bacteria Few /HPF (NONE-FEW) Urine Mucus Few /HPF (NONE-FEW) ED Course/Re-evaluation ED Course The patient was admitted to a room. A history physical were obtained. Differential diagnoses were considered. A CBC, CMP and UA were collected. No repeat imaging at this time, patient had a pelvic ultrasound today, showing an ovarian cyst on the left side. This is where the patient is complaining of pain. 60 mg IM Norflex given. Laboratory studies and urine unremarkable. I did review this with the patient. Patient once again requesting medication to help with her ovarian cysts left lower quadrant pain, I did tell her once again that M and able to give her narcotic pain medications while in the ED nor can I prescribe her narcotic pain medications. I did recommend taking Tylenol as needed for pain. Patient was tearful, expressed understanding and was discharged home. Patient ambulated out without difficulty. Patient was also instructed follow-up with her primary care provider within one week for reevaluation. Return to ER for any concerns or worsening symptoms. Decision to Disposition Date: Apr 01, 2018 Decision to Disposition Time: 18:07 Depart Departure Latest Vital Signs Vital Signs Date Time Temp Pulse Resp B/P (MAP) Pulse Ox O2 Delivery O2 Flow Rate FiO2 04/01/18 18:12 78 18 122/80 (94) 95 Room Air 04/01/18 16:58 97.6 Impression: Primary Impression: Abdominal pain Additional Impression: Ovarian cyst Condition: Improved Disposition: HOME OR SELF-CARE Referrals: JEWELL SEYMOUR APRN-C (PCP) 1 Week Patient Instructions: Ovarian Cyst (ED) Additional Instructions: Continue taking your regular medications. Drink plenty of fluids. Get plenty of rest. Take Tylenol as needed for pain. Try a heating pad to see if this will help with your discomfort. Follow up with your Primary care provider in one week for reevaluation. Return to the ED for any other concerns or worsening symptoms. Problem Qualifiers Primary Impression: Abdominal pain Abdominal location: left lower quadrant Qualified Codes: R10.32 - Left lower quadrant pain Additional Impression: Ovarian cyst Laterality: left Qualified Codes: N83.202 - Unspecified ovarian cyst, left side RODOLFO CASTILLO-BC Apr 01, 2018 16:58
[2018-04-01] MEDS ORDERED: ORPHENADRINE 60MG/2ML INJ IM ONE (17:20)
[2018-04-01 17:55] LABS: PLATELET COUNT, AUTOMATED 300 K/uL (150-450)
[2018-04-01 18:12] VITALS: BP 122/80
== END 2018-04-01 18:22 | disposition home or self-care (01) ==
LOC: ER 16:57
DX: N83.202 Unspecified ovarian cyst, left side (principal)
CPT/HCPCS: 36415; 81001; 85025; 96372; 99283; J2360; 82040; 82247; 82310; 82374; 82435; 82565; 82947; 84075; 84132; 84155; 84295; 84450; 84460; 84520

== ENCOUNTER 2018-04-01 18:32 | Emergency (ER) | payer MEDICARE, MEDICAID ==
[2018-01-14 09:13] VITALS: BMI 41.1
--- NOTE | 2018-04-01 18:52 | ER Report ---
History and Physical Time Seen By MD: 18:46 HPI/ROS CHIEF COMPLAINT: Abdominal pain HISTORY OF PRESENT ILLNESS: This is a 27-year-old female, who was just discharged from the emergency department approximately 20 minutes ago, she returns for abdominal pain. The patient did call her PLASTIC WELDER, she and I spoke, I did tell the patient's when she checked back in that I could offer her a CAT scan of her abdomen however I cannot prescribe her narcotic pain medications or give her narcotic pain medications while in the ED. Patient states she still having left lower quadrant pain "around her ovarian cyst". No other changes, no nausea or vomiting. No fevers or chills. REVIEW OF SYSTEMS: Constitutional: No fever, no chills. Eyes: No discharge. ENT: No sore throat. Cardiovascular: No chest pain, no palpitations. Respiratory: No cough, no shortness of breath. Gastrointestinal: As above. Genitourinary: No hematuria. Musculoskeletal: No back pain. Skin: No rashes. Neurological: No headache. Allergies: Coded Allergies: latex (Verified Allergy, Intermediate, RASH, 04/01/18) ketorolac (Verified Allergy, Mild, RASH, 04/01/18) tramadol (Verified Allergy, Unknown, RASH, 04/01/18) Uncoded Allergies: BLUEBERRY (Allergy, Severe, ANAPHYLAXIS, 02/20/12) BAND-AIDES (Allergy, Mild, RASH, 11/02/10) Home Meds Active Scripts Pregabalin (LYRICA) 75 Mg Capsule, 1 CAP PO BID, #60 CAPSULE 5 Refills Prov:JEWELL SEYMOUR APRN-C 03/05/18 Cyclobenzaprine Hcl (CYCLOBENZAPRINE HCL) 10 Mg Tablet, 1 TAB PO TID PRN for MUSCLE SPASMS, #45 TAB 2 Refills Prov:JEWELL SEYMOUR APRN TOOLROOM KEEPER-C 03/05/18 Trazodone Hcl (TRAZODONE HCL) 50 Mg Tablet, 2 TAB PO QHS, #60 TAB 5 Refills Prov:JEWELL SEYMOUR APRN TOOLROOM KEEPER-C 03/05/18 Albuterol Sulfate (VENTOLIN HFA) 18 Gm Inh, 2 PUFF IH QID PRN for WHEEZING, #1 EACH 0 Refills Prov:JEWELL SEYMOUR APRNP-C 01/29/18 Fluoxetine Hcl (PROZAC) 20 Mg Capsule, 1 CAP PO QDAY, #90 CAPSULE 1 Refill Prov:JEWELL SEYMOUR LUCINDA TOOLROOM KEEPER-C 01/26/18 Epinephrine (EPIPEN 2-KAREEM) 0.3 Mg/0.3 Ml Pen.injctr, 0.3 MG IM ONCE PRN for ANAPHYLAXIS, #1 EACH 0 Refills Prov:JEWELL SEYMOUR LUCINDA TOOLROOM KEEPER-C 11/10/17 Reported Medications Naproxen Sodium (ALEVE) 220 Mg Capsule, 500 MG PO BIDAC, CAPSULE 01/13/18 Discontinued Scripts Hydrocodone Bit/Acetaminophen (HYDROCODON-ACETAMINOPHEN 5-325) 1 Each Tablet, 1 EACH PO Q4-6H PRN for pain, #10 TAB 0 Refills Prov:BENI HASTINGS MD 03/30/18 Past Medical/Surgical History The patient had a past medical and surgical history of migraines, morbidly obese, asthma, acid reflux, cholecystitis, cholecystectomy, kidney stone, partial hysterectomy, arthritis, wrist injury, ankle injury, chronic back pain, wears glasses, accidental overdose on Tylenol, depression, anxiety, tubal ligation, tonsils and adenoidectomy Reviewed Nurses Notes: Yes Hx Smoking: Yes (1/2 ppd) Smoking Status: Current: Every Day Smoker Exposure to Second Hand Smoke?: Yes Hx Substance Use Disorder: No Hx Alcohol Use: No Constitutional Vital Sign - Last 24 Hours 04/01/18 19:00 Temp 98.4 Pulse 75 Resp 17 B/P (MAP) 127/78 Pulse Ox 96 O2 Delivery Room Air Physical Exam General Appearance: The patient is alert, has no immediate need for airway protection and no signs of toxicity. Eyes: Pupils equal and round no pallor or injection. ENT, Mouth: Mucous membranes are moist. Respiratory: There are no retractions, lungs are clear to auscultation. Cardiovascular: Regular rate and rhythm, no murmurs, clicks or rubs. Gastrointestinal: Abdomen is round, soft tenderness with light touch to the left lower quadrant, no rebound tenderness. No masses, bowel sounds normal. Neurological: Alert and oriented 4. Moving all 70s. Following all commands. No focal neuro deficits. Skin: Warm and dry, no rashes. Musculoskeletal: Neck is supple non tender. Extremities are nontender, nonswollen and have full range of motion. DIFFERENTIAL DIAGNOSIS: After history and physical exam differential diagnosis was considered for abdominal pain in a female including but not limited to ovarian cyst, pelvic inflammatory disease, ovarian torsion, urinary tract infection, and appendicitis. Medical Decision Making EKG/Imaging Imaging Location: [facility] Patient: Michelle Feldman : 1990 Visit/Account:[id number] Date of Sevice: 04/01/2018 EXAMINATION: CT abdomen and pelvis with contrast COMPARISON: CT 12/17/2017. Pelvic ultrasound today. HISTORY: Abdominal pain. PROCEDURE: Multiplanar contrast enhanced CT of the abdomen and pelvis with 75 mL intravenous Isovue 370. One of the following dose optimization techniques was utilized in the performance of this exam: Automated exposure control; adjustment of the mA and/or kV according to the patient's size; or use of an iterative reconstruction technique. Specific details can be referenced in the facility's radiology CT exam operational policy. FINDINGS: Visualized thorax: Negative. Liver: Negative. Gallbladder and biliary system: Cholecystectomy. No bile duct dilation. Spleen: Negative. Pancreas: Negative. Adrenal glands: Negative. Kidneys and bladder: No renal mass or evidence of an obstructive uropathy. Urinary bladder is unremarkable. Vessels: Within normal limits. Bowel and mesentery: Stomach, small bowel, and appendix are unremarkable. Small amount of stool in the colon. A single sigmoid diverticulum is present. No bowel or mesenteric inflammation. Pelvic organs: Left ovary 3.9 x 2.8 x 3.1 cm cyst. Hysterectomy. Lymph nodes: No adenopathy. Free air/free fluid: None. Abdominal wall and osseous structures: Abdominal wall is intact. Lower thoracic and lumbar spine multilevel mild degenerative change. L5 bilateral chronic pars defects; no spondylolisthesis. IMPRESSION: 1. No findings of acute disease in the abdomen or pelvis. 2. Left ovary 3.9 cm cyst. 3. L5 bilateral chronic pars defects. No spondylolisthesis. 4. Hysterectomy and cholecystectomy. Report Dictated By: Dallas Cade MD at 04/01/2018 7:41 PM Report E-Signed By: Dallas Cade MD at 04/01/2018 7:47 PM WSN:[id number] ED Course/Re-evaluation Clinical Indication for ER IV: IV Access ED Course The patient was admitted to a room. A history physical were obtained. Differential diagnoses were considered. I did have a lengthy discussion with the patient, did tell her that we cannot treat her pain with narcotic medications, there was no pathology found on the ultrasound, her blood work looked good urine with good I did offer her a CT of the abdomen and pelvis, I did explain to her that this is radiation exposure, the patient elected to proceed with the CT of the abdomen and pelvis. CT was negative for any acute pathology, noted to have a 3.9 cm left ovarian cyst, consistent with the ultrasound findings. I did review the results with the patient. When I entered the room, she was sitting up on the edge of the gurney laughing and interacting well with her friend who was sitting at the bedside. I did tell the patient to follow up with her primary care provider, she will try to follow up with either her PCP or one of the other clinicians tomorrow for reevaluation. Patient was instructed to take Tylenol as needed for pain. Try a heating pad for additional relief. The patient had no other questions or concerns at this time and was discharged home. Also I did have a discussion about the pain clinic with the patient, I did tell her that it would probably be in her best interest to follow up with the [facility], she states she's done this in the past, this is who started her on Lyrica for her fibromyalgia, I did say that it may be time to revisit the clinic, patient expressed understanding. 04/01/2018 6:55:42 pm I did check the [facility] [place], [place] DMP, Miss Feldman had 10 hydrocodone filled on 03/30/2018, she had 8 hydrocodone filled on 03/28/2018, Lyrica filled on 03/05/2018, 120 Phenergan with codeine 02/17/2018. 04/01/2018 7:59:39 pm I did update Dr. Hastings on the CT findings, the patient's has been instructed to follow-up with her primary care provider tomorrow or one of the other clinicians. Decision to Disposition Date: Apr 01, 2018 Decision to Disposition Time: 19:59 Depart Departure Latest Vital Signs Vital Signs Date Time Temp Pulse Resp B/P (MAP) Pulse Ox O2 Delivery O2 Flow Rate FiO2 04/01/18 19:00 98.4 75 17 127/78 96 Room Air Impression: Primary Impression: Abdominal pain Additional Impression: Ovarian cyst Condition: Improved Disposition: HOME OR SELF-CARE Referrals: JEWELL SEYMOUR APRN-C (PCP) Patient Instructions: Ovarian Cyst (ED) Additional Instructions: Continue taking your regular medications. Drink plenty of fluids. Get plenty of rest. Take Tylenol as needed for pain. Try a heating pad to see if this will help with your discomfort. Follow up with your Primary care provider or one of the other clinicians tomorrow for reevaluation. Return to the ED for any other concerns or worsening symptoms. Problem Qualifiers Primary Impression: Abdominal pain Abdominal location: left lower quadrant Qualified Codes: R10.32 - Left lower quadrant pain Additional Impression: Ovarian cyst Laterality: left Qualified Codes: N83.202 - Unspecified ovarian cyst, left side RODOLFO CASTILLO TOOLROOM KEEPER-BC Apr 01, 2018 18:52
[2018-04-01] MEDS ORDERED: IOPAMIDOL 76% 75 ML INFUS BTL 75 ML ONE (19:01)
[2018-04-01 19:30] VITALS: BP 90/25
--- NOTE | 2018-04-01 19:51 | RADIOLOGY IMAGING REPORT ---
FACILITY: [facility] [place] PATIENT NAME: Michelle Feldman : 1990 MR: [id number] V: [id number] EXAM DATE: ORDERING PHYSICIAN: RODOLFO CASTILLO TECHNOLOGIST: Location: [facility] Patient: Michelle Feldman : 1990 Visit/Account:[id number] Date of Sevice: 04/01/2018 EXAMINATION: CT abdomen and pelvis with contrast COMPARISON: CT 12/17/2017. Pelvic ultrasound today. HISTORY: Abdominal pain. PROCEDURE: Multiplanar contrast enhanced CT of the abdomen and pelvis with 75 mL intravenous Isovue 3 70. One of the following dose optimization techniques was utilized in the performance of this exam: A utomated exposure control; adjustment of the mA and/or kV according to the patient's size; or use of an iterative reconstruction technique. Specific details can be referenced in the facility's radiolo gy CT exam operational policy. FINDINGS: Visualized thorax: Negative. Liver: Negative. Gallbladder and biliary system: Cholecystectomy. No bile duct dilation. Spleen: Negative. Pancreas: Negative. Adrenal glands: Negative. Kidneys and bladder: No renal mass or evidence of an obstructive uropathy. Urinary bladder is unrema rkable. Vessels: Within normal limits. Bowel and mesentery: Stomach, small bowel, and appendix are unremarkable. Small amount of stool in th e colon. A single sigmoid diverticulum is present. No bowel or mesenteric inflammation. Pelvic organs: Left ovary 3.9 x 2.8 x 3.1 cm cyst. Hysterectomy. Lymph nodes: No adenopathy. Free air/free fluid: None. Abdominal wall and osseous structures: Abdominal wall is intact. Lower thoracic and lumbar spine mult ilevel mild degenerative change. L5 bilateral chronic pars defects; no spondylolisthesis. IMPRESSION: 1. No findings of acute disease in the abdomen or pelvis. 2. Left ovary 3.9 cm cyst. 3. L5 bilateral chronic pars defects. No spondylolisthesis. 4. Hysterectomy and cholecystectomy. Report Dictated By: Dallas Cade MD at 04/01/2018 7:41 PM Report E-Signed By: Dallas Cade MD at 04/01/2018 7:47 PM WSN:[id number]
== END 2018-04-01 20:06 | disposition home or self-care (01) ==
LOC: ER 19:34
DX: N83.202 Unspecified ovarian cyst, left side (principal)
CPT/HCPCS: 74177; 99284; Q9967

== ENCOUNTER → 2018-04-01 | Outpatient (CLI) | payer MEDICARE, MEDICAID ==
[2018-01-14 09:13] VITALS: BMI 41.1
[~2018-04-01] MED LIST changes: -HYDR-4309 PO; +HYDR-653 PO
--- NOTE | 2018-04-01 13:09 | RADIOLOGY IMAGING REPORT ---
FAC[place] [facility] [place]IENT NAME: Michelle Feldman : 1990 MR: [id number] V: [id number] EXAM DATE: ORDERING PHYSICIAN: BENI SAMSON TECHNOLOGIST: Location: [facility] - [place] Patient: Michelle Feldman : 1990 Visit/Account:[id number] Date of Sevice: 04/01/2018 Transvaginal and transabdominal pelvic ultrasound. Transabdominal imaging performed secondary to non visualization of the right ovary during transvaginal imaging INDICATION: Pelvic pain. COMPARISON: None Available FINDINGS: Uterus is surgically absent. Vaginal cuff is unremarkable. There is no free fluid in the cul-de-sac. Urinary bladder is empty. Pelvic vessels appear unremarkable on this examination. Right ovary is not visualized on transvaginal or transabdominal imaging. No gross adnexal mass. Francois ited visualization of the left ovary which measures approximately 3.5 x 3.3 x 3.2 cm. There is a cys t measuring up to 2.9 cm. IMPRESSION: 1. No acute findings. 2. Suboptimal visualization of the left ovary with a 2.9 cm left ovarian cyst. 3. Right ovary is not visualized on transvaginal or transabdominal imaging. No gross adnexal mass. Report Dictated By: Stan Alva MD at 04/01/2018 1:03 PM Report E-Signed By: Stan Alva MD at 04/01/2018 1:05 PM WSN:[email or web address]
== END ==
LOC: US 11:18
PROVIDERS: ATTEND Obstetrics & Gynecology
DX: Z02.9 Encounter for administrative examinations, unspecified (principal)

== ENCOUNTER → 2018-06-24 | Outpatient (CLI) | payer MEDICARE, MEDICAID ==
[2018-01-14 09:13] VITALS: BMI 41.1
[~2018-06-24] MED LIST changes: +DICY20TA70 PO; -GABA-503 PO; +GABA-533 PO
--- NOTE | 2018-06-24 12:56 | RADIOLOGY IMAGING REPORT ---
FACILITY: [facility] PATIENT NAME: Michelle Feldman : 1990 MR: [id number] V: [id number] EXAM DATE: ORDERING PHYSICIAN: BENI SAMSON TECHNOLOGIST: Location: [facility] Patient: Micehlle Feldman : 1990 Visit/Account:[id number] Date of Sevice: 06/24/2018 [facility] [place] H[place]: PELVIC AND PERINEAL PAIN EXAMINATION: Transabdominal and transvaginal pelvic ultrasound with duplex Doppler evaluation. HISTORY: Right pelvic pain. History of previous hysterectomy. Pain is been 4-5 months in duration. COMPARISON: CT scan of the abdomen from 04/01/2018 FINDINGS: Uterus: Absent Ovaries: Right ovary: 3.7 x 2.1 x 3.1 cm. Right ovarian cyst measuring approximately 2.5 x 1.4 cm. Left ovary measures 2 x 2 x 2 cm. Blood flow is documented in each ovary by duplex Doppler ultrasound. Adnexa: negative Free pelvic fluid: none IMPRESSION: 1. Status post hysterectomy. 2. Right ovarian cyst. Report Dictated By: Aric Barker MD at 06/24/2018 12:46 PM Report E-Signed By: Aric Barker MD at 06/24/2018 12:52 PM WSN:[email or web address]
== END ==
LOC: US 10:57
PROVIDERS: ATTEND Obstetrics & Gynecology
DX: Z02.9 Encounter for administrative examinations, unspecified (principal)

== ENCOUNTER → 2018-06-28 | Outpatient (CLI) | payer MEDICARE, MEDICAID ==
[2018-01-14 09:13] VITALS: BMI 41.1
== END ==
LOC: LAB 13:15
PROVIDERS: ATTEND Nurse Practitioner Primary Care
DX: R31.9 Hematuria, unspecified (principal)
CPT/HCPCS: 81001

== ENCOUNTER → 2018-07-01 | Outpatient (CLI) | payer MEDICARE, MEDICAID ==
[2018-01-14 09:13] VITALS: BMI 41.1
[~2018-07-01] MED LIST changes: +AMIT-106 PO; +CELE-1 PO; +ORP100 PO; +TIZA2CAP3 PO
[2018-07-01 16:36] LABS: PLATELET COUNT, AUTOMATED 362 K/uL (150-450)
== END ==
LOC: LAB 15:42
PROVIDERS: ATTEND Nurse Practitioner Family
DX: R10.9 Unspecified abdominal pain (principal)
CPT/HCPCS: 36415; 82040; 82150; 82247; 82310; 82374; 82435; 82565; 82947; 83690; 84075; 84132; 84155; 84295; 84450; 84460; 84520; 85025

== ENCOUNTER → 2018-07-09 | Outpatient (CLI) | payer MEDICARE, MEDICAID ==
[2018-01-14 09:13] VITALS: BMI 41.1
[~2018-07-09] MED LIST changes: +DEXL60CA6 PO; +ONDA4TAB9 SL; +SUCR1TAB51 PO
--- NOTE | 2018-07-09 18:18 | RADIOLOGY IMAGING REPORT ---
FACILITY: [facility] PATIENT NAME: Michelle Feldman : 1990 MR: [id number] V: [id number] EXAM DATE: ORDERING PHYSICIAN: JEWELL SEYMOUR TECHNOLOGIST: Location: [facility] Patient: Michelle Feldman : 1990 Visit/Account:[id number] Date of Sevice: 07/09/2018 EXAMINATION: AP pelvis with lateral view of the right hip HISTORY: Right hip pain. COMPARISON: CT abdomen/pelvis 04/01/2018. FINDINGS: Bones of the right hip demonstrate normal alignment. No evidence of fracture or dislocation. The duncan int space is preserved. Remainder of the bony pelvis appears radiographically intact. Normal mineralization. IMPRESSION: Negative right hip. Report Dictated By: Caleb Vaca MD at 07/09/2018 6:09 PM Report E-Signed By: Caleb Vaca MD at 07/09/2018 6:14 PM [id number]
== END ==
LOC: RAD 17:10
PROVIDERS: ATTEND Nurse Practitioner Family
DX: M25.551 Pain in right hip (principal)

== ENCOUNTER 2018-08-16 13:50 | Emergency (ER) | payer MEDICARE, MEDICAID ==
[2018-01-14 09:13] VITALS: BMI 41.1
[~2018-08-16 13:50] MED LIST changes: +AMIT-108 PO; +DICL100G7 TOP
--- NOTE | 2018-08-16 13:58 | ER Report ---
History and Physical Time Seen By MD: 13:58 Hx. of Stated Complaint: SORES ITCHING HANDS AND ARMS HPI/ROS 27 YEAR OLD WITH RASH ITCHING HANDS AND LOWER ARMS . UNSURE WHAT HER EXPOSURE IS . HAS PETS Allergies: Coded Allergies: latex (Verified Allergy, Intermediate, RASH, 04/01/18) ketorolac (Verified Allergy, Mild, RASH, 04/01/18) tramadol (Verified Allergy, Unknown, RASH, 04/01/18) Uncoded Allergies: BLUEBERRY (Allergy, Severe, ANAPHYLAXIS, 02/20/12) BAND-AIDES (Allergy, Mild, RASH, 11/02/10) Home Meds Active Scripts Triamcinolone Acetonide 0.1% Oint 15 Gm Tube (TRIAMCINOLONE ACETONIDE 0.1% 15 GM TUBE) 15 Gm Oint...g., 30 GM TP 1-2XD, #1 TUBE Prov:ALBERTO VÁSQUEZ 08/16/18 Prednisone (PREDNISONE) 20 Mg Tablet, 40 MG PO BID, #10 TAB Prov:ALBERTO VÁSQUEZ 08/16/18 Diclofenac Sodium (Diclofenac Sodium) 1 % Gel..gram., 2-4 GM TOP QID for 90 Days, #300 GM 1 Refill Apply 2 gm to foot and 4gm to lower back or knee as needed for pain Prov:JEWELL SEYMOUR APRN-Lloyd 08/06/18 Orphenadrine Citrate (ORPHENADRINE CITRATE) 100 Mg Tabsr, 1 TAB PO Q12H PRN for MUSCLE SPASMS, #60 TAB 1 Refill Prov:JEWELL SEYMOUR APRN-Lloyd 08/06/18 Amitriptyline Hcl (AMITRIPTYLINE HCL) 50 Mg Tablet, 1 TAB PO QHS, #30 TAB 5 Refills Prov:JEWELL SEYMOUR APRN-Lloyd 08/06/18 Dexlansoprazole (DEXILANT) 60 Mg Cap., 1 CAP PO DAILY, #90 TAB 1 Refill Prov:JEWELL SEYMOUR APRN-Lloyd 08/06/18 Ondansetron 4 Mg Odt (ONDANSETRON 4 MG ODT) 4 Mg Tab.rapdis, 1 TAB SL Q8H PRN for NAUSEA, #30 TAB 0 Refills Prov:JEWELL SEYMOUR APRN-C 08/04/18 Fluoxetine Hcl (PROZAC) 20 Mg Capsule, 1 CAP PO QDAY, #90 CAPSULE 0 Refills Prov:JEWELL SEYMOUR APRN-C 06/29/18 Trazodone Hcl (TRAZODONE HCL) 50 Mg Tablet, 2 TAB PO QHS, #60 TAB 5 Refills Prov:JEWELL SEYMUOR APRN-C 06/14/18 Albuterol Sulfate (VENTOLIN HFA) 18 Gm Inh, 2 PUFF IH QID PRN for WHEEZING, #1 EACH 0 Refills Prov:JEWELL SEYMOUR APRN-Lloyd 01/29/18 Epinephrine (EPIPEN 2-KAREEM) 0.3 Mg/0.3 Ml Pen.injctr, 0.3 MG IM ONCE PRN for ANAPHYLAXIS, #1 EACH 0 Refills Prov:JEWELL SEYMOUR APRN-C 11/10/17 Past Medical/Surgical History History of migraine headaches, GERD, cholecystectomy, hysterectomy, , kidney stones, tubal ligation Hx Smoking: Yes (1/2 ppd) Smoking Status: Current: Every Day Smoker Exposure to Second Hand Smoke?: Yes Hx Substance Use Disorder: No Hx Alcohol Use: No Constitutional Vital Sign - Last 24 Hours 08/16/18 08/16/18 14:00 14:10 Temp 97.5 Pulse 117 Resp 20 B/P (MAP) 120/89 123/85 (98) Pulse Ox 93 O2 Delivery Room Air Physical Exam ALERT ANXIOUS . ITCHY PURITIC RASH TO HANDS AND TRAVELING UP ARMS , HRR LUNGS CTA Medical Decision Making ED Course/Re-evaluation ED Course nad in er oral dose of prednisone tolerated with nad Decision to Disposition Date: Aug 16, 2018 Decision to Disposition Time: 14:08 Depart Departure Latest Vital Signs Vital Signs Date Time Temp Pulse Resp B/P (MAP) Pulse Ox O2 Delivery O2 Flow Rate FiO2 08/16/18 14:10 123/85 (98) 08/16/18 14:00 97.5 117 20 93 Room Air Impression: Primary Impression: Contact dermatitis Condition: Improved Disposition: HOME OR SELF-CARE Referrals: JEWELL SEYMOUR APRN (PCP) 2 Days New Scripts Triamcinolone Acetonide 0.1% Oint 15 Gm Tube (TRIAMCINOLONE ACETONIDE 0.1% 15 GM TUBE) 15 Gm Oint...g. 30 GM TP 1-2XD, #1 TUBE Prov: ALBERTO VÁSQUEZ 08/16/18 Prednisone (PREDNISONE) 20 Mg Tablet 40 MG PO BID, #10 TAB Prov: ALBERTO VÁSQUEZ 08/16/18 Patient Instructions: Contact Dermatitis (DC) Additional Instructions: MEDICATION PRESCRIBED, SEE YOUR DOCTOR IN TWO DAYS ALBERTO VÁSQUEZ Aug 16, 2018 13:57
[2018-08-16] MEDS ORDERED: predniSONE 20 MG TAB PO ONE (14:05)
[2018-08-16 14:10] VITALS: BP 123/85
[2018-08-16] MEDS ORDERED: TRIA15OI20 TP (14:10)
[2018-08-16] MEDS ORDERED: PRED20TA6 PO (14:10)
== END 2018-08-16 14:19 | disposition home or self-care (01) ==
LOC: ER 14:03
DX: L25.9 Unspecified contact dermatitis, unspecified cause (principal)
CPT/HCPCS: 99282

== ENCOUNTER 2018-08-23 10:34 | Emergency (ER) | payer MEDICARE, MEDICAID ==
[2018-01-14 09:13] VITALS: Wt 127.0 kg
[~2018-08-23 10:34] MED LIST changes: +PRED20TA6 PO; +TRIA15OI20 TP
[2018-08-23] MEDS ORDERED: NS(*) 0.9% 1000 ML BAG 1,000 ML IV ONE (11:03)
[2018-08-23] MEDS ORDERED: ONDANSETRON 4 MG/2 ML VIAL IVP ONE (11:05)
[2018-08-23 11:10] LABS: PLATELET COUNT, AUTOMATED 375 K/uL (150-450)
--- NOTE | 2018-08-23 11:40 | ER Report ---
History and Physical Time Seen By MD: 11:16 Hx. of Stated Complaint: N/V/D ABDO PAIN MID ABDO SINCE 2AM CONSTANT HPI/ROS CHIEF COMPLAINT: Abdominal pain HISTORY OF PRESENT ILLNESS: This is a 27-year-old female, well-known to the emergency department, she presents today for abdominal pain. Patient states that she woke up at 2:00 this morning with mid abdominal pain, similar to the pain that she normally has, she states that then she began to have some nausea and vomiting, she also states that she has some diarrhea, no blood noted in either. No fevers or chills. No chest pain or shortness of breath. No rashes. No other complaints. REVIEW OF SYSTEMS: Constitutional: No fever, no chills. Eyes: No discharge. ENT: No sore throat. Cardiovascular: No chest pain, no palpitations. Respiratory: No cough, no shortness of breath. Gastrointestinal: As above. Genitourinary: No hematuria. Musculoskeletal: No back pain. Skin: No rashes. Neurological: No headache. Allergies: Coded Allergies: latex (Verified Allergy, Intermediate, RASH, 04/01/18) ketorolac (Verified Allergy, Mild, RASH, 04/01/18) diclofenac (Verified Allergy, Unknown, 08/23/18) tramadol (Verified Allergy, Unknown, RASH, 04/01/18) Uncoded Allergies: BLUEBERRY (Allergy, Severe, ANAPHYLAXIS, 02/20/12) BAND-AIDES (Allergy, Mild, RASH, 11/02/10) Home Meds Active Scripts Amitriptyline Hcl (AMITRIPTYLINE HCL) 50 Mg Tablet, 1 TAB PO QHS, #30 TAB 5 Refills Prov:JEWELL SEYMOUR APRN MEDICAL OFFICE ASSISTANT-C 08/20/18 Triamcinolone Acetonide 0.1% Oint 15 Gm Tube (TRIAMCINOLONE ACETONIDE 0.1% 15 GM TUBE) 15 Gm Oint...g., 30 GM TP 1-2XD, #1 TUBE Prov:ALBERTO VÁSQUEZ APRN-C 08/16/18 Prednisone (PREDNISONE) 20 Mg Tablet, 40 MG PO BID, #10 TAB Prov:ALBERTO VÁSQUEZ APRN-C 08/16/18 Orphenadrine Citrate (ORPHENADRINE CITRATE) 100 Mg Tabsr, 1 TAB PO Q12H PRN for MUSCLE SPASMS, #60 TAB 1 Refill Prov:JEWELL SEYMOUR APRN-C 08/06/18 Dexlansoprazole (DEXILANT) 60 Mg Cap., 1 CAP PO DAILY, #90 TAB 1 Refill Prov:JEWELL SEYMOUR APRN-C 08/06/18 Ondansetron 4 Mg Odt (ONDANSETRON 4 MG ODT) 4 Mg Tab.rapdis, 1 TAB SL Q8H PRN for NAUSEA, #30 TAB 0 Refills Prov:JEWELL SEYMOUR APRNP-C 08/04/18 Fluoxetine Hcl (PROZAC) 20 Mg Capsule, 1 CAP PO QDAY, #90 CAPSULE 0 Refills Prov:JEWELL SEYMOUR APRN-C 06/29/18 Trazodone Hcl (TRAZODONE HCL) 50 Mg Tablet, 2 TAB PO QHS, #60 TAB 5 Refills Prov:JEWELL SEYMOUR APRN-C 06/14/18 Albuterol Sulfate (VENTOLIN HFA) 18 Gm Inh, 2 PUFF IH QID PRN for WHEEZING, #1 EACH 0 Refills Prov:JEWELL SEYMOUR APRN-Lloyd 01/29/18 Epinephrine (EPIPEN 2-KAREEM) 0.3 Mg/0.3 Ml Pen.injctr, 0.3 MG IM ONCE PRN for ANAPHYLAXIS, #1 EACH 0 Refills Prov:JEWELL SEYMOUR APRN-Lloyd 11/10/17 Discontinued Scripts Diclofenac Sodium (Diclofenac Sodium) 1 % Gel..gram., 2-4 GM TOP QID for 90 Days, #300 GM 1 Refill Apply 2 gm to foot and 4gm to lower back or knee as needed for pain Prov:JEWELL SEYMOUR APRN-C 08/06/18 Past Medical/Surgical History The patient had a past medical and surgical history of migraines, high body mass index, asthma, acid reflux, cholecystitis, cholecystectomy, kidney stone, partial hysterectomy, arthritis, wrist injury, ankle injury, chronic back pain, wears glasses, accidental overdose on Tylenol, depression, anxiety, tubal ligation, tonsils and adenoidectomy Reviewed Nurses Notes: Yes Hx Smoking: Yes (2 ppd) Smoking Status: Current: Every Day Smoker Exposure to Second Hand Smoke?: Yes Hx Substance Use Disorder: No Hx Alcohol Use: No Constitutional Vital Sign - Last 24 Hours 08/23/18 08/23/18 08/23/18 08/23/18 10:44 12:06 12:19 12:30 Temp 98.0 Pulse 97 87 Resp 18 B/P (MAP) 129/109 123/85 (98) 120/82 (95) Pulse Ox 92 93 O2 Delivery Room Air 08/23/18 08/23/18 08/23/18 08/23/18 12:35 12:50 13:00 13:05 Pulse 92 83 86 B/P (MAP) 96/60 (72) Pulse Ox 91 89 91 Physical Exam General Appearance: The patient is alert, has no immediate need for airway protection and no signs of toxicity. Eyes: Pupils equal and round no pallor or injection. ENT, Mouth: Mucous membranes are moist. Respiratory: There are no retractions, lungs are clear to auscultation. Cardiovascular: Regular rate and rhythm, no murmurs, clicks or rubs. Gastrointestinal: Abdomen is round, soft and mildly tender in all quadrants, no masses, hypoactive bowel sounds. Neurological: Alert and oriented 4. Moving all extremities. Following all commands. No focal neuro deficits. Skin: Warm and dry, no rashes. Musculoskeletal: Neck is supple non tender. Extremities are nontender, nonswollen and have full range of motion. DIFFERENTIAL DIAGNOSIS: After history and physical exam differential diagnosis was considered for abdominal pain in a female including but not limited to ovarian cyst, pelvic inflammatory disease, ovarian torsion, urinary tract infection, and appendicitis. Medical Decision Making Data Points Result Diagram: 08/23/18 1058 08/23/18 1058 Laboratory Hematology Test 08/23/18 10:38 08/23/18 10:58 Urine Color Straw Urine Clarity Clear Urine pH 6.0 pH (4.8-9.5) Urine Specific Regina 1.009 Urine Protein Negative mg/dL (NEGATIVE) Urine Glucose (UA) Negative mg/dL (NEGATIVE) Urine Ketones Negative mg/dL (NEGATIVE) Urine Blood Negative (NEGATIVE) Urine Nitrite Negative (NEGATIVE) Urine Bilirubin Negative (NEGATIVE) Urine Urobilinogen Negative mg/dL (0.2-1.9) Urine Leukocyte Esterase Negative (NEGATIVE) Urine RBC None /HPF (0-2/HPF) Urine WBC <1 /HPF (0-5/HPF) Urine Squamous Epithelial Cells Many /LPF (</=FEW) Urine Transitional Epithelial Cells Few /LPF (NONE-FEW) Urine Bacteria Few /HPF (NONE-FEW) Urine Mucus None /HPF (NONE-FEW) Red Blood Count 5.34 M/uL (4.17-5.56) Mean Corpuscular Volume 87.1 fL (80.0-96.0) Mean Corpuscular Hemoglobin 29.8 pg (26.0-33.0) Mean Corpuscular Hemoglobin Concent 34.2 g/dL (32.0-36.0) Red Cell Distribution Width 14.1 % (11.5-14.5) Mean Platelet Volume 7.1 fL (7.2-11.1) Neutrophils (%) (Auto) 82.7 % (39.4-72.5) Lymphocytes (%) (Auto) 11.0 % (17.6-49.6) Monocytes (%) (Auto) 5.0 % (4.1-12.4) Eosinophils (%) (Auto) 1.0 % (0.4-6.7) Basophils (%) (Auto) 0.3 % (0.3-1.4) Nucleated RBC Relative Count (auto) 0.1 /100WBC Neutrophils # (Auto) 14.2 K/uL (2.0-7.4) Lymphocytes # (Auto) 1.9 K/uL (1.3-3.6) Monocytes # (Auto) 0.9 K/uL (0.3-1.0) Eosinophils # (Auto) 0.2 K/uL (0.0-0.5) Basophils # (Auto) 0.1 K/uL (0.0-0.1) Nucleated RBC Absolute Count (auto) 0.02 K/uL Sodium Level 136 mmol/L (137-145) Potassium Level 4.5 mmol/L (3.5-5.0) Chloride Level 103 mmol/L (98-107) Carbon Dioxide Level 23 mmol/L (22-31) Blood Urea Nitrogen 16 mg/dl (7-18) Creatinine 0.60 mg/dl (0.52-1.04) Glomerular Filtration Rate Calc > 60.0 Random Glucose 105 mg/dl (75-110) Calcium Level 9.4 mg/dl (8.4-10.2) Total Bilirubin 0.3 mg/dl (0.2-1.3) Aspartate Amino Transf (AST/SGOT) 23 U/L (0-35) Alanine Aminotransferase (ALT/SGPT) 12 U/L (0-56) Alkaline Phosphatase 100 U/L (0-126) Total Protein 8.0 g/dl (6.3-8.2) Albumin 4.4 g/dl (3.5-5.0) Lipase 69 U/L (23-300) Chemistry Test 08/23/18 10:38 08/23/18 10:58 Urine Color Straw Urine Clarity Clear Urine pH 6.0 pH (4.8-9.5) Urine Specific Regina 1.009 Urine Protein Negative mg/dL (NEGATIVE) Urine Glucose (UA) Negative mg/dL (NEGATIVE) Urine Ketones Negative mg/dL (NEGATIVE) Urine Blood Negative (NEGATIVE) Urine Nitrite Negative (NEGATIVE) Urine Bilirubin Negative (NEGATIVE) Urine Urobilinogen Negative mg/dL (0.2-1.9) Urine Leukocyte Esterase Negative (NEGATIVE) Urine RBC None /HPF (0-2/HPF) Urine WBC <1 /HPF (0-5/HPF) Urine Squamous Epithelial Cells Many /LPF (</=FEW) Urine Transitional Epithelial Cells Few /LPF (NONE-FEW) Urine Bacteria Few /HPF (NONE-FEW) Urine Mucus None /HPF (NONE-FEW) White Blood Count 17.2 k/uL (4.5-11.0) Red Blood Count 5.34 M/uL (4.17-5.56) Hemoglobin 15.9 g/dL (12.0-16.0) Hematocrit 46.5 % (34.0-47.0) Mean Corpuscular Volume 87.1 fL (80.0-96.0) Mean Corpuscular Hemoglobin 29.8 pg (26.0-33.0) Mean Corpuscular Hemoglobin Concent 34.2 g/dL (32.0-36.0) Red Cell Distribution Width 14.1 % (11.5-14.5) Platelet Count 375 K/uL (150-450) Mean Platelet Volume 7.1 fL (7.2-11.1) Neutrophils (%) (Auto) 82.7 % (39.4-72.5) Lymphocytes (%) (Auto) 11.0 % (17.6-49.6) Monocytes (%) (Auto) 5.0 % (4.1-12.4) Eosinophils (%) (Auto) 1.0 % (0.4-6.7) Basophils (%) (Auto) 0.3 % (0.3-1.4) Nucleated RBC Relative Count (auto) 0.1 /100WBC Neutrophils # (Auto) 14.2 K/uL (2.0-7.4) Lymphocytes # (Auto) 1.9 K/uL (1.3-3.6) Monocytes # (Auto) 0.9 K/uL (0.3-1.0) Eosinophils # (Auto) 0.2 K/uL (0.0-0.5) Basophils # (Auto) 0.1 K/uL (0.0-0.1) Nucleated RBC Absolute Count (auto) 0.02 K/uL Glomerular Filtration Rate Calc > 60.0 Calcium Level 9.4 mg/dl (8.4-10.2) Total Bilirubin 0.3 mg/dl (0.2-1.3) Aspartate Amino Transf (AST/SGOT) 23 U/L (0-35) Alanine Aminotransferase (ALT/SGPT) 12 U/L (0-56) Alkaline Phosphatase 100 U/L (0-126) Total Protein 8.0 g/dl (6.3-8.2) Albumin 4.4 g/dl (3.5-5.0) Lipase 69 U/L (23-300) Urinalysis Test 08/23/18 10:38 Urine Color Straw Urine Clarity Clear Urine pH 6.0 pH (4.8-9.5) Urine Specific Regina 1.009 Urine Protein Negative mg/dL (NEGATIVE) Urine Glucose (UA) Negative mg/dL (NEGATIVE) Urine Ketones Negative mg/dL (NEGATIVE) Urine Blood Negative (NEGATIVE) Urine Nitrite Negative (NEGATIVE) Urine Bilirubin Negative (NEGATIVE) Urine Urobilinogen Negative mg/dL (0.2-1.9) Urine Leukocyte Esterase Negative (NEGATIVE) Urine RBC None /HPF (0-2/HPF) Urine WBC <1 /HPF (0-5/HPF) Urine Squamous Epithelial Cells Many /LPF (</=FEW) Urine Transitional Epithelial Cells Few /LPF (NONE-FEW) Urine Bacteria Few /HPF (NONE-FEW) Urine Mucus None /HPF (NONE-FEW) EKG/Imaging Imaging Location: [facility] Patient: Michelle Feldman : 1990 Visit/Account:[id number] Date of Sevice: 08/23/2018 Computed tomograpy abdomen and pelvis with IV contrast Indication: Abdominal pain with cramping, nausea and vomiting. Comparison: 04/01/2018. Technique: Transaxial computed tomography images were obtained through the abdomen and pelvis following the injection of nonionic iodinated intravenous contrast. Reformatted coronal and sagittal images were also obtained. One of the following dose optimization techniques was utilized in the performance of this exam: Automated exposure control; adjustment of the mA and/or kV according to the patient's size; or use of an iterative reconstruction technique. Specific details can be referenced in the facility's radiology CT exam operational policy. Contrast: 75 ml of Isovue-370 IV contrast. Findings: Lower lung tam: Minimal dependent atelectasis. Liver: No focal parenchymal abnormality of the liver. Biliary: Previous cholecystectomy. No biliary dilatation. Pancreas: Normal appearance. Spleen: Normal appearance. Adrenal glands: Unremarkable. Kidneys / retroperitoneum: No evidence of nephrolithiasis or hydronephrosis Bowel / peritoneum / mesenteries: Liquid stool is seen within the right colon and transverse colon extending to the splenic flexure. This is not specific. This could be related to diarrhea. No colonic wall thickening or pericolonic inflammation. The appendix is normal. No small bowel dilatation. No free air. No free fluid. Lymph node assessment: No pathologic adenopathy identified. Pelvic structures: Previous hysterectomy. The previously seen left ovarian cyst has resolved. There is a right ovarian cyst seen on today's exam which measures 2.9 cm. This is likely physiologic. Vessels: No significant atherosclerotic calcifications seen throughout a nonaneurysmal abdominal aorta and branches. Musculoskeletal / Body wall: No acute fracture deformity. 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 IMPRESSION: 1. Nonspecific liquid stool within the right colon and transverse colon. No evidence of wall thickening or pericolonic inflammation. This is not specific but could be related to diarrhea. Correlate clinically. 2. Otherwise, no acute process seen within the abdomen or the pelvis. 3. Prior hysterectomy and cholecystectomy. 4. 2.9 cm right ovarian cyst, likely physiologic. 5. Pars interarticularis defects bilaterally at L5-S1 without spondylolis thesis. Report Dictated By: Roman Chopra at 08/23/2018 12:38 PM Report E-Signed By: Roman Chopra at 08/23/2018 12:48 PM [email or web address] ED Course/Re-evaluation Clinical Indication for ER IV: Hydration, IV Access ED Course The patient was admitted to room. A history and physical were obtained. Differential diagnoses were considered. An IV was started. A CBC, CMP, UA were collected. A 1 L normal saline bolus was given. 4 mg IV Zofran.CBC showing white count of 17.2 with a left shift, chemistry unremarkable, negative UA. I did revi ew the results with the patient, I did recommend a CT of the abdomen and pelvis as her white count was elevated, CT was negative for any acute pathology, was noted to have an ovarian cyst on the left, with what appeared to be liquid stool consistent with the patient's complaint of diarrhea. Patient continued to ask for pain medications, she was given 1 g of IV Tylenol. This did seem to help with some of the patient's discomfort. Nausea markedly improved after the Zofran. I did review the results with the patient, did tell her that the elevated white count is likely from the acute nausea and vomiting and diarrhea, no other infectious process identified. Patient expressed understanding, I did recommend that she follows up with her primary care provider within the next 1-2 weeks for reevaluation. She'll continue taking her regular medications. She had no other questions or concerns at this time and discharged home. Decision to Disposition Date: Aug 23, 2018 Decision to Disposition Time: 13:10 Depart Departure Latest Vital Signs Vital Signs Date Time Temp Pulse Resp B/P (MAP) Pulse Ox O2 Delivery O2 Flow Rate FiO2 08/23/18 13:05 86 91 08/23/18 13:00 96/60 (72) 08/23/18 10:44 98.0 18 Room Air Impression: Primary Impression: Ovarian cyst, left Additional Impression: Gastroenteritis Condition: Improved Disposition: HOME OR SELF-CARE Referrals: JEWELL SEYMOUR APRN MEDICAL OFFICE ASSISTANT-C (PCP) 2 Weeks Patient Instructions: Gastroenteritis (ED), Ovarian Cyst (ED) Additional Instructions: There were no concerning findings on the CT of her abdomen or pelvis. Be sure to take your medications as prescribed. Your nausea, vomiting and diarrhea is likely due to a viral illness, this will likely pass within the next week. 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 Hastings. Get plenty of rest. Drink plenty of fluids. Follow-up with your primary care provider within the next 1-2 weeks. Return to the ER for any other concerns or worsening symptoms. Problem Qualifiers RODOLFO CASTILLO-BC Aug 23, 2018 11:40
[2018-08-23] MEDS ORDERED: IOPAMIDOL 76% 150 ML INFUS BTL 150 ML ONE (12:05)
[2018-08-23] MEDS ORDERED: ACETAMINOPHEN(*)1000 MG/100 ML 100 ML IVPB ONE (12:35)
--- NOTE | 2018-08-23 12:52 | RADIOLOGY IMAGING REPORT ---
FACILITY: [facility] PATIENT NAME: Michelle Feldman : 1990 MR: [id number] V: [id number] EXAM DATE: ORDERING PHYSICIAN: RODOLFO CASTILLO TECHNOLOGIST: Location: [facility] Patient: Michelle Feldman : 1990 Visit/Account:[id number] Date of Sevice: 08/23/2018 Computed tomograpy abdomen and pelvis with IV contrast Indication: Abdominal pain with cramping, nausea and vomiting. Comparison: 04/01/2018. Technique: Transaxial computed tomography images were obtained through the abdomen and pelvis follo wing the injection of nonionic iodinated intravenous contrast. Reformatted coronal and sagittal image s were also obtained. One of the following dose optimization techniques was utilized in the performance of this exam: Autom ated exposure control; adjustment of the mA and/or kV according to the patient's size; or use of an i terative reconstruction technique. Specific details can be referenced in the facility's radiology C T exam operational policy. Contrast: 75 ml of Isovue-370 IV contrast. Findings: Lower lung tam: Minimal dependent atelectasis. Liver: No focal parenchymal abnormality of the liver. Biliary: Previous cholecystectomy. No biliary dilatation. Pancreas: Normal appearance. Spleen: Normal appearance. Adrenal glands: Unremarkable. Kidneys / retroperitoneum: No evidence of nephrolithiasis or hydronephrosis Bowel / peritoneum / mesenteries: Liquid stool is seen within the right colon and transverse colon ex tending to the splenic flexure. This is not specific. This could be related to diarrhea. No coloni c wall thickening or pericolonic inflammation. The appendix is normal. No small bowel dilatation. No free air. No free fluid. Lymph node assessment: No pathologic adenopathy identified. Pelvic structures: Previous hysterectomy. The previously seen left ovarian cyst has resolved. Th ere is a right ovarian cyst seen on today's exam which measures 2.9 cm. This is likely physiologic. Vessels: No significant atherosclerotic calcifications seen throughout a nonaneurysmal abdominal aort a and branches. Musculoskeletal / Body wall: No acute fracture deformity. Bilateral pars interarticularis defects ar e seen at L5-S1 without evidence of spondylolisthesis. IMPRESSION: 1. Nonspecific liquid stool within the right colon and transverse colon. No evidence of wall thicken ing or pericolonic inflammation. This is not specific but could be related to diarrhea. Correlate c linically. 2. Otherwise, no acute process seen within the abdomen or the pelvis. 3. Prior hysterectomy and cholecystectomy. 4. 2.9 cm right ovarian cyst, likely physiologic. 5. Pars interarticularis defects bilaterally at L5-S1 without spondylolisthesis. Report Dictated By: Roman Chopra at 08/23/2018 12:38 PM Report E-Signed By: Roman Chopra at 08/23/2018 12:48 PM [email or web address]
[2018-08-23 13:00] VITALS: BP 96/60
== END 2018-08-23 13:18 | disposition home or self-care (01) ==
LOC: ER 11:09
DX: N83.202 Unspecified ovarian cyst, left side (principal); K52.9 Noninfective gastroenteritis and colitis, unspecified
CPT/HCPCS: 74177; 81001; 83690; 85025; 96361; 96365; 96375; 99284; J0131; J2405; J7030; Q9967; 82040; 82247; 82310; 82374; 82435; 82565; 82947; 84075; 84132; 84155; 84295; 84450; 84460; 84520

== ENCOUNTER 2018-09-14 16:28 | Emergency (ER) | payer MEDICARE, MEDICAID ==
[2018-01-14 09:13] VITALS: Wt 115.7 kg
[2018-09-14 16:31] VITALS: BP 120/88
[2018-09-14] MEDS ORDERED: AMOX500T10 PO (16:47)
--- NOTE | 2018-09-14 16:52 | ER Report ---
History and Physical Time Seen By MD: 16:35 Hx. of Stated Complaint: PT HAS A TOOTHE ACHE FOR 3-4 DAYS. MULTIPLE HOME REMEDIES WITHOUT RELIEF HPI/ROS CHIEF COMPLAINT: dental pain HISTORY OF PRESENT ILLNESS: PT here for help with dental pain that started 3 days ago. Pt has hx of a broken molars on right upper and lower. Pt was seen here this fall and went to a dentist who wanted to pull both teeth but pt declined. Pt states her pain improved after the abx this fall until 3 days ago. Pt has tried motrin/tylenol, orjel and clover without relief. No fevers. no facial swelling REVIEW OF SYSTEMS: Constitutional: No fever, no chills. Eyes: No discharge. ENT: No sore throat, + dental pain Cardiovascular: No chest pain, no palpitations. Respiratory: No cough, no shortness of breath. Gastrointestinal: No abdominal pain, no vomiting. Genitourinary: No hematuria. Musculoskeletal: No back pain. Skin: No rashes. Neurological: No headache. Allergies: Coded Allergies: latex (Verified Allergy, Intermediate, RASH, 09/14/18) ketorolac (Verified Allergy, Mild, RASH, 09/14/18) diclofenac (Verified Allergy, Unknown, 09/14/18) tramadol (Verified Allergy, Unknown, RASH, 09/14/18) Uncoded Allergies: BLUEBERRY (Allergy, Severe, ANAPHYLAXIS, 02/20/12) BAND-AIDES (Allergy, Mild, RASH, 11/02/10) Home Meds Active Scripts Amoxicillin 500 Mg Tab (AMOXICILLIN 500 MG TAB) 500 Mg Tablet, 1 TAB PO TID, #21 TAB Prov:KELLY ARNOLD DO 09/14/18 Amitriptyline Hcl (AMITRIPTYLINE HCL) 50 Mg Tablet, 1 TAB PO QHS, #30 TAB 5 Refills Prov:JEWELL SEYMOUR APRN [employer]-C 08/20/18 Triamcinolone Acetonide 0.1% Oint 15 Gm Tube (TRIAMCINOLONE ACETONIDE 0.1% 15 GM TUBE) 15 Gm Oint...g., 30 GM TP 1-2XD, #1 TUBE Prov:ALBERTO VÁSQUEZ APRN-C 08/16/18 Prednisone (PREDNISONE) 20 Mg Tablet, 40 MG PO BID, #10 TAB Prov:ALBERTO VÁSQUEZ APRN-C 08/16/18 Orphenadrine Citrate (ORPHENADRINE CITRATE) 100 Mg Tabsr, 1 TAB PO Q12H PRN for MUSCLE SPASMS, #60 TAB 1 Refill Prov:JEWELL SEYMOUR APRN [employer] 08/06/18 Dexlansoprazole (DEXILANT) 60 Mg Cap., 1 CAP PO DAILY, #90 TAB 1 Refill Prov:JEWELL SEYMOUR APRNP-C 08/06/18 Ondansetron 4 Mg Odt (ONDANSETRON 4 MG ODT) 4 Mg Tab.rapdis, 1 TAB SL Q8H PRN for NAUSEA, #30 TAB 0 Refills Prov:JEWELL SEYMOUR APRNP-C 08/04/18 Fluoxetine Hcl (PROZAC) 20 Mg Capsule, 1 CAP PO QDAY, #90 CAPSULE 0 Refills Prov:JEWELL SEYMOUR APRN-C 06/29/18 Trazodone Hcl (TRAZODONE HCL) 50 Mg Tablet, 2 TAB PO QHS, #60 TAB 5 Refills Prov:JEWELL SEYMOUR APRNP-C 06/14/18 Albuterol Sulfate (VENTOLIN HFA) 18 Gm Inh, 2 PUFF IH QID PRN for WHEEZING, #1 EACH 0 Refills Prov:JEWELL SEYMOUR APRN [employer] 01/29/18 Epinephrine (EPIPEN 2-KAREEM) 0.3 Mg/0.3 Ml Pen.injctr, 0.3 MG IM ONCE PRN for ANAPHYLAXIS, #1 EACH 0 Refills Prov:JEWELL SEYMOUR APRN [employer]-C 11/10/17 Past Medical/Surgical History Pmhx/Pshx: migraines, high body mass index, asthma, acid reflux, cholecystitis, cholecystectomy, kidney stone, partial hysterectomy, arthritis, wrist injury, ankle injury, chronic back pain, wears glasses, accidental overdose on Tylenol, depression, anxiety, tubal ligation, tonsils and adenoidectomy Reviewed Nurses Notes: Yes Old Medical Records Reviewed: Yes Hx Smoking: Yes (1/2 ppd) Smoking Status: Current: Every Day Smoker Exposure to Second Hand Smoke?: Yes Hx Substance Use Disorder: No Hx Alcohol Use: No Constitutional Vital Sign - Last 24 Hours 09/14/18 16:31 Temp 97.6 Pulse 113 Resp 20 B/P (MAP) 120/88 Pulse Ox 90 O2 Delivery Room Air Physical Exam General Appearance: The patient is alert, has no immediate need for airway protection and no signs of toxicity. Eyes: Pupils equal and round no pallor or injection, EOMI ENT: no pharyngeal erythema or exudates, Mucous membranes are moist, TM are nl b/l, +no palpable abscess identified on gum line, + missing second molar on right lower with cavity in 3rd; cavity in second right upper molar Respiratory: There are no retractions, lungs are clear to auscultation. Cardiovascular: Regular rate and rhythm. pulses are equal and symmetrical Gastrointestinal: Abdomen is soft and non tender, no masses, bowel sounds normal, no guarding, no rigidity or rebound Neurological: Cranial nerves II-XII grossly intact, no sensory or motor loss Skin: Warm and dry, no rashes. Musculoskeletal: Neck is supple non tender, no vertebral tenderness Extremities are nontender, nonswollen and have full range of motion. DIFFERENTIAL DIAGNOSIS: After history and physical exam differential diagnosis was considered for dental caries, dental abscess Medical Decision Making ED Course/Re-evaluation ED Course Offered patient a dental block to relieve her current pain. Pt refusing any needles. suggested dental wax to place in the open cavity. Pt states she will call her dentist in am and will schedule to have her tooth pulled. Will start abx. Decision to Disposition Date: Sep 14, 2018 Decision to Disposition Time: 17:07 Depart Departure Latest Vital Signs Vital Signs Date Time Temp Pulse Resp B/P (MAP) Pulse Ox O2 Delivery O2 Flow Rate FiO2 09/14/18 16:31 97.6 113 20 120/88 90 Room Air Impression: Primary Impression: Pain, dental Condition: Condition Unchanged Disposition: HOME OR SELF-CARE Referrals: JEWELL SEYMOUR APRN [employer]-C (PCP) New Scripts Amoxicillin 500 Mg Tab (AMOXICILLIN 500 MG TAB) 500 Mg Tablet 1 TAB PO TID, #21 TAB Prov: KELLY ARNOLD V 09/14/18 Patient Instructions: Dental Caries (ED) Additional Instructions: It is very important that you follow up with a dentist. Call tomorrow to be seen in next 48 hours. Start your antibiotic. You may try orajel over the broken tooth. If Orajel is not working you can fill the hole in your tooth with dental wax (used with braces, found over the counter). By filling the hole your nerve should not be exposed and you should be able to eat or drink. Motrin/tylenol as needed for pain. KELLY ARNOLD DO Sep 14, 2018 16:52
[2018-09-14] MEDS ORDERED: ACETAMINOPHEN 325 MG TAB PO ONE (16:55)
[2018-09-17] MEDS ORDERED: FLUO-202 PO (15:46)
== END 2018-09-14 17:03 | disposition home or self-care (01) ==
LOC: ER 16:51
DX: K08.89 Other specified disorders of teeth and supporting structures (principal); F17.210 Nicotine dependence, cigarettes, uncomplicated
CPT/HCPCS: 99283; A9270

== ENCOUNTER 2018-10-06 16:57 | Emergency (ER) | payer MEDICARE, MEDICAID ==
[2018-01-14 09:13] VITALS: Wt 115.7 kg
[~2018-10-06 16:57] MED LIST changes: +AMOX500T10 PO
[2018-10-06 17:02] VITALS: BP 135/92
--- NOTE | 2018-10-06 17:15 | ER Report ---
History and Physical Time Seen By MD: 17:12 Hx. of Stated Complaint: RIGHT LOWER TOOTH PULLED ONE HOUR AGO - STATES "THEY TOLD ME I NEEDED TO COME HERE" HPI/ROS CHIEF COMPLAINT: Requesting narcotics HISTORY OF PRESENT ILLNESS: 28-year-old female comes emergency Department today she had a tooth pulled about 2 hours ago and is requesting narcotics. The dentist based on her pain contract refuse to give her narcotics she is on a care plan here at this institution also had evidence and requesting narcotics patient has been taking visits for narcotic use and abuse no additional complaints other than tooth pain REVIEW OF SYSTEMS: Respiratory: No cough, no dyspnea. Cardiovascular: No chest pain, no palpitations. Gastrointestinal: No vomiting, no abdominal pain. Musculoskeletal: No back pain. Remainder of the 14 system rev: Yes Allergies: Coded Allergies: latex (Verified Allergy, Intermediate, RASH, 09/14/18) ketorolac (Verified Allergy, Mild, RASH, 09/14/18) diclofenac (Verified Allergy, Unknown, 09/14/18) tramadol (Verified Allergy, Unknown, RASH, 09/14/18) Uncoded Allergies: BLUEBERRY (Allergy, Severe, ANAPHYLAXIS, 02/20/12) BAND-AIDES (Allergy, Mild, RASH, 11/02/10) Home Meds Active Scripts Trazodone Hcl (TRAZODONE HCL) 50 Mg Tablet, 2 TAB PO QHS, #60 TAB 5 Refills Prov:JEWELL SEYMOUR APRNP-C 10/06/18 Orphenadrine Citrate (ORPHENADRINE CITRATE) 100 Mg Tabsr, 1 TAB PO Q12H PRN for MUSCLE SPASMS, #60 TAB 2 Refills Prov:JEWELL SEYMOUR APRN [employer] SUPER[employer]OR-C 09/20/18 Fluoxetine Hcl (PROZAC) 20 Mg Capsule, 1 CAP PO QDAY, #90 CAPSULE 1 Refill Prov:JEWELL SEYMOUR APRNP-C 09/17/18 Amitriptyline Hcl (AMITRIPTYLINE HCL) 50 Mg Tablet, 1 TAB PO QHS, #30 TAB 5 Refills Prov:JEWELL SEYMOUR APRN [employer] SUPER[employer]-C 08/20/18 Prednisone (PREDNISONE) 20 Mg Tablet, 40 MG PO BID, #10 TAB Prov:ALBERTO VÁSQUEZ APRN-C 08/16/18 Dexlansoprazole (DEXILANT) 60 Mg Cap., 1 CAP PO DAILY, #90 TAB 1 Refill Prov:JEWELL SEYMOUR APRN-Lloyd 08/06/18 Albuterol Sulfate (VENTOLIN HFA) 18 Gm Inh, 2 PUFF IH QID PRN for WHEEZING, #1 EACH 0 Refills Prov:JEWELL SEYMOUR APRN 01/29/18 Epinephrine (EPIPEN 2-KAREEM) 0.3 Mg/0.3 Ml Pen.injctr, 0.3 MG IM ONCE PRN for ANAPHYLAXIS, #1 EACH 0 Refills Prov:JEWELL SEYMOUR APRN-Lloyd 11/10/17 Discontinued Scripts Amoxicillin 500 Mg Tab (AMOXICILLIN 500 MG TAB) 500 Mg Tablet, 1 TAB PO TID, #21 TAB Prov:KELLY ARNOLD DO 09/14/18 Triamcinolone Acetonide 0.1% Oint 15 Gm Tube (TRIAMCINOLONE ACETONIDE 0.1% 15 GM TUBE) 15 Gm Oint...g., 30 GM TP 1-2XD, #1 TUBE Prov:ALBERTO VÁSQUEZ 08/16/18 Ondansetron 4 Mg Odt (ONDANSETRON 4 MG ODT) 4 Mg Tab.rapdis, 1 TAB SL Q8H PRN for NAUSEA, #30 TAB 0 Refills Prov:JEWELL SEYMOUR APRN-Lloyd 08/04/18 Reviewed Nurses Notes: Yes Old Medical Records Reviewed: Yes Hx Smoking: Yes (1/2 ppd) Smoking Status: Current: Every Day Smoker Exposure to Second Hand Smoke?: Yes Hx Substance Use Disorder: No Hx Alcohol Use: No Constitutional Vital Sign - Last 24 Hours 10/06/18 17:02 Temp 99.0 Pulse 96 Resp 20 B/P (MAP) 135/92 Pulse Ox 96 O2 Delivery Room Air Physical Exam General appearance: [Alert no distress.] Respiratory: Chest is non tender, lungs are clear to auscultation. Cardiac: Regular rate and rhythm [ ] Oral examination patient has an obvious tooth extraction of subtle infection or active bleeding normal gingival DIFFERENTIAL DIAGNOSIS: After history and physical exam differential diagnosis was considered for pain postprocedural tooth extraction Medical Decision Making ED Course/Re-evaluation ED Course Patient requesting narcotic pain medicine for procedure that she had done about hours to ago dentist refused to give pain narcotics due to her pain contract patient is on a care plan here I supported the position we were not give narcotics out for nonnarcotic she's declined I gave her opportunities to use [id number] and how to prescribe them utilize them appropriately patient would discharge diagnosis tooth pain Decision to Disposition Date: October 06, 2018 Decision to Disposition Time: 17:14 Depart Departure Latest Vital Signs Vital Signs Date Time Temp Pulse Resp B/P (MAP) Pulse Ox O2 Delivery O2 Flow Rate FiO2 10/06/18 17:02 99.0 96 20 135/92 96 Room Air Impression: Primary Impression: Pain, dental Additional Impression: Drug-seeking behavior Condition: Condition Unchanged Disposition: HOME OR SELF-CARE Referrals: JEWELL SEYMOUR APRN-Lloyd (PCP) 5 Days Departure Forms: Medications Reconciliation, Patient Portal Information, ER Transition Record Patient Instructions: Narcotic Pain Management (GEN) Problem Qualifiers TATIANA ROBERT MD October 06, 2018 17:15
[2018-10-07] MEDS ORDERED: LIDO15SO2 MM (13:33)
== END 2018-10-06 17:46 | disposition home or self-care (01) ==
LOC: ER 17:05
DX: K08.89 Other specified disorders of teeth and supporting structures (principal)
CPT/HCPCS: 99281

== ENCOUNTER 2018-11-23 22:05 | Emergency (ER) | payer MEDICARE, MEDICAID ==
[2018-01-14 09:13] VITALS: Wt 129.3 kg
[~2018-11-23 22:05] MED LIST changes: +LIDO15SO2 MM; -TRAZ50TA34 PO; +TRAZ50TA52 PO
[2018-11-23] MEDS ORDERED: IBUPROFEN 800 MG TAB PO ONE (22:40)
[2018-11-23 23:00] VITALS: BP 120/83
--- NOTE | 2018-11-23 23:47 | ER Report ---
History and Physical Time Seen By MD: 22:00 Hx. of Stated Complaint: RIGHT WRIST AND KNEE PAIN X 1 WEEK HPI/ROS CHIEF COMPLAINT: wrist pain, knee pain HISTORY OF PRESENT ILLNESS: 28 f presents with wrist pain and knee pain. She states both have been ongoing for 1 week. She had dog bite /sutures on right lateral wrist 2-3 yrs ago and states that while she has not had intermittent pain here, she developed spontaneous pain in this area 1 wk ago. Pt denies preceding injury. She had been taking ibuprofen/tylenol with some relief. However, 3 d ago she was walking up stairs and fell because she states her knee 'locked'; she reached out with her right hand, irritating the right wrist, which she states has been more painful since this time. She states that pain has been uncontrolled despite tylenol/ibuprofen. Pt also c/o r knee pain x 1 week. She had previous surgery 6 yrs ago to 'adjust' her right patella. She states she has had difficulty with this knee since that time, with pain on both medial and lateral sides, as well as it 'locking' up. Current knee pain started 1 wk ago and was exacerbated by fall as above. Pt has 8/10 pain in both wrist and knee. She is asking for something stronger than tylenol/motrin. She has no fever/chills/distal numbness/weakness REVIEW OF SYSTEMS: Constitutional: No fever, no chills. Eyes: No discharge. ENT: No sore throat. Cardiovascular: No chest pain, no palpitations. Respiratory: No cough, no shortness of breath. Gastrointestinal: No abdominal pain, no vomiting. Genitourinary: no dysuria Musculoskeletal: No back pain. Other pains as above Skin: No rashes. No lacerations Neurological: No headache. Remainder of the 14 system rev: Yes Allergies: Coded Allergies: latex (Verified Allergy, Intermediate, RASH, 11/23/18) ketorolac (Verified Allergy, Mild, RASH, 11/23/18) diclofenac (Verified Allergy, Unknown, 11/23/18) tramadol (Verified Allergy, Unknown, RASH, 11/23/18) Uncoded Allergies: BLUEBERRY (Allergy, Severe, ANAPHYLAXIS, 02/20/12) BAND-AIDES (Allergy, Mild, RASH, 11/02/10) Home Meds Active Scripts Lidocaine HCl VISCOUS 2% (Lidocaine Viscous) 2 % Solution, 1-2 TSP MM Q4H PRN for PAIN, #120 ML 0 Refills Apply to painful area of the mouth. Swish and spit. do not exceed 8 doses in 24 hours Prov:JEWELL SEYMOUR APRN-Lloyd 10/07/18 Trazodone Hcl (TRAZODONE HCL) 50 Mg Tablet, 2 TAB PO QHS, #60 TAB 5 Refills Prov:JEWELL SEYMOUR APRN-Lloyd 10/06/18 Orphenadrine Citrate (ORPHENADRINE CITRATE) 100 Mg Tabsr, 1 TAB PO Q12H PRN for MUSCLE SPASMS, #60 TAB 2 Refills Prov:JEWELL SEYMOUR APRN 09/20/18 Fluoxetine Hcl (PROZAC) 20 Mg Capsule, 1 CAP PO QDAY, #90 CAPSULE 1 Refill Prov:JEWELL SEYMOUR APRN 09/17/18 Amitriptyline Hcl (AMITRIPTYLINE HCL) 50 Mg Tablet, 1 TAB PO QHS, #30 TAB 5 Refills Prov:JEWELL SEYMOUR APRN-C 08/20/18 Dexlansoprazole (DEXILANT) 60 Mg Cap., 1 CAP PO DAILY, #90 TAB 1 Refill Prov:JEWELL SEYMOUR APRN 08/06/18 Albuterol Sulfate (VENTOLIN HFA) 18 Gm Inh, 2 PUFF IH QID PRN for WHEEZING, #1 EACH 0 Refills Prov:JEWELL SEYMOUR APRN 01/29/18 Epinephrine (EPIPEN 2-KAREEM) 0.3 Mg/0.3 Ml Pen.injctr, 0.3 MG IM ONCE PRN for ANAPHYLAXIS, #1 EACH 0 Refills Prov:JEWELL SEYMOUR APRN 11/10/17 Reviewed Nurses Notes: Yes Old Medical Records Reviewed: Yes Hx Smoking: Yes (1/2 ppd) Smoking Status: Current: Every Day Smoker Exposure to Second Hand Smoke?: Yes Hx Substance Use Disorder: No Hx Alcohol Use: No Constitutional Vital Sign - Last 24 Hours 11/23/18 22:20 Temp 98.2 Pulse 109 Resp 15 B/P (MAP) 121/91 Pulse Ox 96 O2 Delivery Room Air Physical Exam General Appearance: The patient is alert, has no immediate need for airway protection and no signs of toxicity. Eyes: Pupils equal and round no pallor or injection. ENT, Mouth: Mucous membranes are moist. Respiratory: There are no retractions, lungs are clear to auscultation. Cardiovascular: Regular rate and rhythm. Neurological: alert, oriented, grossly nl neuro exam Skin: Warm and dry, no rashes. Musculoskeletal: Pt has FROM right upper extremity. No elbow/forearm pain or ttp. She has a healed scar right lateral wrist at level of distal ulna. Pt has ttp at this area as well as over distal ulna, though without erythema, fluctuance, abrasion, or contusion. NVID. No pain with axial loading or passive ROM. Right lower extremiy; full range of motion. No patella ttp. Neg anterior drawer. Pt has ttp at medial and lateral joint lines. There is no eryethema/abrasions/contusions. No pain with axial loading. DIFFERENTIAL DIAGNOSIS: After history and physical exam differential diagnosis was considered for septic joint, fracture, ligament injury, dislocation, cellulitis, abscess, or other emergent etiology of symptoms, complication of fall. Medical Decision Making ED Course/Re-evaluation ED Course 28 f presents with pain r wrist, r knee. The initial pain developed independently, though both exacerbated by reported fall 3 d ago. While I considered emergent causes of polyarthritis, including septic arthritis, after evaluation, pain appears to be soft tissue rather than joint in origin. xrays are unremarkable; radiologist read concurs. Pt slightly improved after evaluation and asks for paula wraps. Reasonable for d/c with supportive care; I gave her strict rtn precautions for sgs of septic arthritis or other emergent complication of her symptoms. Decision to Disposition Date: Nov 24, 2018 Decision to Disposition Time: 00:29 Depart Departure Latest Vital Signs Vital Signs Date Time Temp Pulse Resp B/P (MAP) Pulse Ox O2 Delivery O2 Flow Rate FiO2 11/23/18 22:20 98.2 109 15 121/91 96 Room Air Impression: Primary Impression: Sprain of wrist, right Additional Impression: Right knee sprain Condition: Improved Disposition: HOME OR SELF-CARE Referrals: JEWELL SEYMOUR APRN [facility] NURSE-C (PCP) 5 Days Patient Instructions: Hand Sprain (ED), Knee Sprain (ED) Additional Instructions: As we discussed, please return if you develop fever, redness or signs concerning for infection, or any other concerns. Problem Qualifiers Primary Impression: Sprain of wrist, right Encounter type: initial encounter Qualified Codes: S63.501A - Unspecified sprain of right wrist, initial encounter Additional Impression: Right knee sprain Encounter type: initial encounter Involved ligament of knee: unspecified ligament Qualified Codes: S83.91XA - Sprain of unspecified site of right knee, initial encounter RAMON JAQUEZ MD Nov 23, 2018 23:47
--- NOTE | 2018-11-24 00:09 | RADIOLOGY IMAGING REPORT ---
FACILITY: [facility] PATIENT NAME: Michelle Feldman : 1990 MR: [id number] V: [id number] EXAM DATE: ORDERING PHYSICIAN: RAMON JAQUEZ TECHNOLOG[place] [facility] [place] : 1990 Visit/Account:[id number] Date of Sevice: 11/23/2018 INDICATION: fall 3 d ago, ttp ulna EXAM DATE: 11/23/2018 10:40 PM COMPARISON: 02/24/2012. FINDINGS: 3 views right knee. Mineralization is normal. No acute alignment abnormality or fracture. Soft tissu es are unremarkable. IMPRESSION: Normal right knee. Report Dictated By: Baldo Valdes MD at 11/24/2018 12:03 AM Report E-Signed By: Baldo Vadles MD at 11/24/2018 12:04 AM WSN:[id number]
--- NOTE | 2018-11-24 00:12 | RADIOLOGY IMAGING REPORT ---
FACILITY: [facility] [place] PATIENT NAME: Michelle Feldman : 1990 MR: [id number] V: [id number] EXAM DATE: ORDERING PHYSICIAN: RAMON JAQUEZ TECHNOLOGIST: Location: [facility] [place] Patient: Michelle Feldman : 1990 Visit/Account:[id number] Date of Sevice: 11/23/2018 INDICATION: fall 3 d ago, ttp ulna EXAM DATE: 11/23/2018 10:40 PM COMPARISON: None. FINDINGS: 3 views right wrist. Mineralization is normal. No acute alignment abnormality or fracture. Negative ulnar variance. Soft tissues are unremarkable. IMPRESSION: No acute osseous abnormality of the right wrist. Report Dictated By: Baldo Valdes MD at 11/24/2018 12:04 AM Report E-Signed By: Baldo Valdes MD at 11/24/2018 12:07 AM WSN:[id number]
[2018-11-24] MEDS ORDERED: LIDO76.5 TOP (15:52)
== END 2018-11-24 00:41 | disposition home or self-care (01) ==
LOC: ER 22:28
DX: S63.501A Unspecified sprain of right wrist, initial encounter (principal); S83.91XA Sprain of unspecified site of right knee, initial encounter; W10.9XXA Fall (on) (from) unspecified stairs and steps, initial encounter
CPT/HCPCS: 73110; 73562; 99284; A9270

== ENCOUNTER 2018-12-05 18:37 | Emergency (ER) | payer MEDICARE, MEDICAID ==
[2018-01-14 09:13] VITALS: Wt 129.3 kg
[~2018-12-05 18:37] MED LIST changes: +LIDO76.5 TOP
--- NOTE | 2018-12-05 18:39 | ER Report ---
History and Physical Time Seen By MD: 18:36 HPI/ROS CHIEF COMPLAINT: Right upper tooth pain for 2 days HISTORY OF PRESENT ILLNESS: 28-year-old female presents complaining of right upper tooth pain. Patient states she has a dentist appointment on the . Patient notes no fever or chills. She notes no difficulty swallowing. Patient's on a pain contract here in the emergency department restricting use of opiates. Patient notes no nausea or vomiting. Patient describes 8/10 pain, throbbing in nature. She notes no alleviating or exacerbating factors. REVIEW OF SYSTEMS: Respiratory: No cough, no dyspnea. Cardiovascular: No chest pain, no palpitations. Gastrointestinal: No vomiting, no abdominal pain. Musculoskeletal: No back pain. Allergies: Coded Allergies: latex (Verified Allergy, Intermediate, RASH, 11/23/18) ketorolac (Verified Allergy, Mild, RASH, 11/23/18) diclofenac (Verified Allergy, Unknown, 11/23/18) tramadol (Verified Allergy, Unknown, RASH, 11/23/18) Uncoded Allergies: BLUEBERRY (Allergy, Severe, ANAPHYLAXIS, 02/20/12) BAND-AIDES (Allergy, Mild, RASH, 11/02/10) Home Meds Active Scripts Amoxicillin (AMOXICILLIN) 500 Mg Capsule, 1 CAP PO Q8H for infection, #30 CAPSULE Prov:CAPO VARGAS DO 12/05/18 Trazodone Hcl (TRAZODONE HCL) 50 Mg Tablet, 2 TAB PO QHS, #60 TAB 5 Refills Prov:JEWELL SEYMOUR APRNP-C 10/06/18 Orphenadrine Citrate (ORPHENADRINE CITRATE) 100 Mg Tabsr, 1 TAB PO Q12H PRN for MUSCLE SPASMS, #60 TAB 2 Refills Prov:JEWELL SEYMOUR APRN DESIGN STUDIO CONSULTANT-C 09/20/18 Fluoxetine Hcl (PROZAC) 20 Mg Capsule, 1 CAP PO QDAY, #90 CAPSULE 1 Refill Prov:JEWELL SEYMOUR APRN DESIGN STUDIO CONSULTANT-C 09/17/18 Amitriptyline Hcl (AMITRIPTYLINE HCL) 50 Mg Tablet, 1 TAB PO QHS, #30 TAB 5 Refills Prov:JEWELL SEYMOUR APRNP-C 08/20/18 Dexlansoprazole (DEXILANT) 60 Mg Cap., 1 CAP PO DAILY, #90 TAB 1 Refill Prov:JEWELL SEYMOUR APRNP-C 08/06/18 Albuterol Sulfate (VENTOLIN HFA) 18 Gm Inh, 2 PUFF IH QID PRN for WHEEZING, #1 EACH 0 Refills Prov:JEWELL SEYMOUR APRN DESIGN STUDIO CONSULTANT-C 01/29/18 Epinephrine (EPIPEN 2-KAREEM) 0.3 Mg/0.3 Ml Pen.injctr, 0.3 MG IM ONCE PRN for ANAPHYLAXIS, #1 EACH 0 Refills Prov:JEWELL SEYMOUR APRNP-C 11/10/17 Discontinued Scripts Lidocaine HCl (Aspercreme) 4 % Cream..g., 1 JUAN TOP QID PRN for wrist pain, #30 GM 1 Refill Apply a thin layer to wrist up to 4 times daily as needed for pain Prov:JEWELL SEYMOUR APRN DESIGN STUDIO CONSULTANT-C 11/24/18 Lidocaine HCl VISCOUS 2% (Lidocaine Viscous) 2 % Solution, 1-2 TSP MM Q4H PRN for PAIN, #120 ML 0 Refills Apply to painful area of the mouth. Swish and spit. do not exceed 8 doses in 24 hours Prov:JEWELL SEYMOUR APRN DESIGN STUDIO CONSULTANT-C 10/07/18 Past Medical/Surgical History The patient had a past medical and surgical history of migraines, high body mass index, asthma, acid reflux, cholecystitis, cholecystectomy, kidney stone, partial hysterectomy, arthritis, wrist injury, ankle injury, chronic back pain, wears glasses, accidental overdose on Tylenol, depression, anxiety, tubal ligation, tonsils and adenoidectomy Reviewed Nurses Notes: Yes Old Medical Records Reviewed: Yes Hx Smoking: Yes (1/2 ppd) Smoking Status: Current: Every Day Smoker Exposure to Second Hand Smoke?: Yes Hx Substance Use Disorder: No Hx Alcohol Use: No Constitutional Vital Sign - Last 24 Hours 12/05/18 18:41 Temp 98.1 Pulse 94 Resp 20 B/P (MAP) 128/91 Pulse Ox 93 O2 Delivery Room Air Physical Exam General Appearance: The patient is alert, has no immediate need for airway protection and no current signs of toxicity. Vital signs stable, afebrile, pulse ox normal HEENT: Pupils equal and round no injection. TMs normal, TMJs nontender, examination of the oropharynx shows a tooth at position #5 with the Mary and it. The tooth at position 6 is missing. There are other teeth missing. Remainder of the dentition appears in good repair Respiratory: Chest is non tender, lungs are clear to auscultation. Cardiac: regular rate and rhythm Gastrointestinal: Abdomen is soft and non tender, no masses, bowel sounds normal. Musculoskeletal: Neck: Neck is supple and non tender. No lymphadenopathy or induration of neck tissues Extremities have full range of motion and are non tender. Skin: No rashes or lesions. DIFFERENTIAL DIAGNOSIS: After history and physical exam differential diagnosis was considered for tooth abscess, dental pain, sinus infection, TMJ disorder Medical Decision Making ED Course/Re-evaluation ED Course Patient was admitted to an examination room. H&P was done. The differential diagnoses was considered. On clinical examination, patient appears to have a toothache. Patient has no fevers or difficulty swallowing. Patient's on a treatment plan restricting use of opiate pain relievers here in the emergency room. She is offered a dental block which he declines. She is advised ibuprofen and Tylenol. Patient given a prescription for amoxicillin for pain relief. She is advised follow up with a dentist as soon as possible. Decision to Disposition Date: Dec 05, 2018 Decision to Disposition Time: 18:50 Depart Departure Latest Vital Signs Vital Signs Date Time Temp Pulse Resp B/P (MAP) Pulse Ox O2 Delivery O2 Flow Rate FiO2 12/05/18 18:41 98.1 94 20 128/91 93 Room Air Impression: Primary Impression: Toothache Condition: Improved Disposition: HOME OR SELF-CARE Referrals: JEWELL SEYMOUR APRN DESIGN STUDIO CONSULTANT-C (PCP) New Scripts Amoxicillin (AMOXICILLIN) 500 Mg Capsule 1 CAP PO Q8H for infection, #30 CAPSULE Prov: CAPO VARGAS DO 12/05/18 Patient Instructions: Toothache (ED) Additional Instructions: Alternate ibuprofen and Tylenol to alleviate your pain Topical Orajel for additional pain relief Apply warm compresses Follow-up with the dentist as you have planned on December 22 CAPO VARGAS DO Dec 05, 2018 18:39
[2018-12-05 18:41] VITALS: BP 128/91
[2018-12-05] MEDS ORDERED: ALBUTEROL 2.5 MG/3 ML NEB NEB ONE (18:45)
[2018-12-05] MEDS ORDERED: AMOX-362 PO (18:54)
[2018-12-05] MEDS ORDERED: AMOXICILLIN 500 MG CAP PO ONE (18:55)
[2018-12-05] MEDS ORDERED: IBUPROFEN 800 MG TAB PO ONE (19:00)
== END 2018-12-05 19:03 | disposition home or self-care (01) ==
LOC: ER 18:42
DX: K08.89 Other specified disorders of teeth and supporting structures (principal); F17.210 Nicotine dependence, cigarettes, uncomplicated; J45.909 Unspecified asthma, uncomplicated; K21.9 Gastro-esophageal reflux disease without esophagitis; Z79.899 Other long term (current) drug therapy
CPT/HCPCS: 99283; A9270

== ENCOUNTER 2018-12-07 15:23 | Emergency (ER) | payer MEDICARE, MEDICAID ==
[2018-01-14 09:13] VITALS: Wt 120.7 kg
[~2018-12-07 15:23] MED LIST changes: -LIDO700A19 TD
[2018-12-07 15:33] VITALS: BP 128/96
--- NOTE | 2018-12-07 15:40 | ER Report ---
History and Physical Time Seen By MD: 15:37 Hx. of Stated Complaint: right sided abd pain HPI/ROS CHIEF COMPLAINT: Right flank pain HISTORY OF PRESENT ILLNESS: 28-year-old female patient presents to emergency room with complaint of right flank pain. Patient states that she had been having this pain for the last couple days. She states that there is nothing seems to make it better, states this been worsening on its own over the last couple of days. She states that today's been horrible. She did go to [facility]. She states that she was evaluated there, they did do some lab work. She was given a prescription for 3 hydrocodone. She did take one of those prior to coming into the emergency room. She states she was instructed that if she were to have any worsening of pain that she is to come to the emergency room for further evaluation. She states they did an x-ray and that there was a blockage and air which she assumes around her appendix. She states she would like to have her appendix removed. REVIEW OF SYSTEMS: Respiratory: No cough, no dyspnea. Cardiovascular: No chest pain, no palpitations. Gastrointestinal: As noted above Musculoskeletal: No back pain. Allergies: Coded Allergies: latex (Verified Allergy, Intermediate, RASH, 12/07/18) ketorolac (Verified Allergy, Mild, RASH, 12/07/18) diclofenac (Verified Allergy, Unknown, 12/07/18) tramadol (Verified Allergy, Unknown, RASH, 12/07/18) Uncoded Allergies: BLUEBERRY (Allergy, Severe, ANAPHYLAXIS, 02/20/12) BAND-AIDES (Allergy, Mild, RASH, 11/02/10) Home Meds Active Scripts Lidocaine (Lidocaine) 5 % Adh..patch, 1 PATCH TD DAILY, #10 PATCH apply in the morning and then remove 12 hours later. Prov:CARLOTTA LEA FERRYBOAT CAPTAIN 12/07/18 Amoxicillin (AMOXICILLIN) 500 Mg Capsule, 1 CAP PO Q8H for infection, #30 CAPSULE Prov:CAPO VARGAS DO 12/05/18 Trazodone Hcl (TRAZODONE HCL) 50 Mg Tablet, 2 TAB PO QHS, #60 TAB 5 Refills Prov:JEWELL SEYMOUR APRN FERRYBOAT CAPTAIN-C 10/06/18 Orphenadrine Citrate (ORPHENADRINE CITRATE) 100 Mg Tabsr, 1 TAB PO Q12H PRN for MUSCLE SPASMS, #60 TAB 2 Refills Prov:JWEELL SEYMOUR APRN-C 09/20/18 Fluoxetine Hcl (PROZAC) 20 Mg Capsule, 1 CAP PO QDAY, #90 CAPSULE 1 Refill Prov:JEWELL SEYMOUR APRN-C 09/17/18 Amitriptyline Hcl (AMITRIPTYLINE HCL) 50 Mg Tablet, 1 TAB PO QHS, #30 TAB 5 Refills Prov:JEWELL SEYMOUR APRN-C 08/20/18 Dexlansoprazole (DEXILANT) 60 Mg Cap., 1 CAP PO DAILY, #90 TAB 1 Refill Prov:JEWELL SEYMOUR APRN-C 08/06/18 Albuterol Sulfate (VENTOLIN HFA) 18 Gm Inh, 2 PUFF IH QID PRN for WHEEZING, #1 EACH 0 Refills Prov:JEWELL SEYMOUR APRN-Lloyd 01/29/18 Epinephrine (EPIPEN 2-KAREEM) 0.3 Mg/0.3 Ml Pen.injctr, 0.3 MG IM ONCE PRN for ANAPHYLAXIS, #1 EACH 0 Refills Prov:JEWELL SEYMOUR APRN-C 11/10/17 Discontinued Scripts Lidocaine HCl (Aspercreme) 4 % Cream..g., 1 JUAN TOP QID PRN for wrist pain, #30 GM 1 Refill Apply a thin layer to wrist up to 4 times daily as needed for pain Prov:JEWELL SEYMOUR APRN-C 11/24/18 Lidocaine HCl VISCOUS 2% (Lidocaine Viscous) 2 % Solution, 1-2 TSP MM Q4H PRN for PAIN, #120 ML 0 Refills Apply to painful area of the mouth. Swish and spit. do not exceed 8 doses in 24 hours Prov:JEWELL SEYMOUR APRN-C 10/07/18 Past Medical/Surgical History Patient has a past medical history of migraines, asthma, reflux, cholecystitis, kidney stone, arthritis, fractures, back pain, depression, anxiety. Patient has a surgical history of tonsillectomy, adenoidectomy, right knee surgery, partial gastrectomy, tubal ligation, cholecystectomy. Patient has a family medical history of stroke, diabetes, cancer. Reviewed Nurses Notes: Yes Hx Smoking: Yes (1/2 ppd) Smoking Status: Current: Every Day Smoker Exposure to Second Hand Smoke?: Yes Hx Substance Use Disorder: No Hx Alcohol Use: No Constitutional Vital Sign - Last 24 Hours 12/07/18 15:33 Temp 98.5 Pulse 120 Resp 24 B/P (MAP) 128/96 Pulse Ox 95 O2 Delivery Room Air Physical Exam General Appearance: The patient is alert, has no immediate need for airway protection and no current signs of toxicity. Respiratory: Chest is non tender, lungs are clear to auscultation. Cardiac: regular rate and rhythm Gastrointestinal: Abdomen is soft and non tender, no masses, bowel sounds normal. Musculoskeletal: Neck: Neck is supple and non tender. Back: Patient does have tenderness to the paraspinal muscles to the right side of the lumbar spine. Extremities have full range of motion and are non tender. Skin: No rashes or lesions. DIFFERENTIAL DIAGNOSIS: After history and physical exam differential diagnosis was considered for abdominal pain including but not limited to appendicitis, cholecystitis, gastritis and urinary tract infection. Included differential is shingles, urinary tract infection, kidney stone. Medical Decision Making EKG/Imaging Imaging CT abdomen and pelvis with IV contrast Indication: Right flank pain. Comparison: 08/23/2018.. Technique: Axial CT images were obtained through the abdomen and pelvis during injection of nonionic iodinated intravenous contrast. Reformatted coronal and sagittal images were also obtained. One of the following dose optimization techniques was utilized in the performance of this exam: Automated exposure control; adjustment of the mA and/or kV according to the patient's size; or use of an iterative reconstruction technique. Specific details can be referenced in the facility's radiology CT exam operational policy. Contrast: 75 ml of Isovue-370 IV contrast. Findings: Lower lung tam: Limited views lower lung field are unremarkable. Liver: No focal parenchymal abnormality of the liver. Biliary: Status post cholecystectomy. The biliary system is unremarkable. Pancreas: Normal appearance. Spleen: Normal appearance. Adrenal glands: Unremarkable. Kidneys / retroperitoneum: No evidence of nephrolithiasis or hydronephrosis. Ri ght kidney again shows scarring. No focal lesions are seen in the kidneys. Bowel / peritoneum / mesenteries: The colon shows no focal normality. The cecum, ascending colon proximal transverse colon is decompressed without focal abnormality or inflammation. The appendix is normal. The small bowel shows no focal abnormality or obstruction. The stomach is unremarkable. No free air, free collections or areas of inflammation. Very small amount of free fluid seen in pelvis likely physiologic. Lymph node assessment: No pathologic adenopathy identified. Pelvic structures: The right ovary again shows a 2.5 cm cyst is likely physio logic. The ovaries are otherwise unremarkable. Status post hysterectomy. The remaining pelvic structures visualized within normal limits. Vessels: No significant atherosclerotic calcifications seen throughout a nonaneurysmal abdominal aorta and branches. Musculoskeletal / Body wall: No acute or aggressive osseous abnormality. Mild degenerative changes of spine. IMPRESSION: 1. No acute intra-abdominal abnormality 2. Other chronic findings as above. Report Dictated By: Gio Stacy at 12/07/2018 4:35 PM Report E-Signed By: Gio Stacy at 12/07/2018 4:43 PM ED Course/Re-evaluation ED Course Patient was admitted to an exam room, history of physical were obtained. Differential diagnoses were considered. On examination lungs are clear, heart is regular, abdomen is soft nontender. Patient did have some tenderness to the paraspinal muscles to the right. Patient had lab work done at the urgent care which were unremarkable. I did not repeat that. A CT scan of the abdomen and pelvis was done which was stating that she had an abnormal abdominal x-ray at the urgent care. The CT scan showed no acute findings. I discussed the findings with the patient and her mom. I discussed treating the patient with Lidoderm patches. Patient states that she is allergic to lidocaine. We will go ahead and discharge patient home at this time. She states the pain medication which was prescribed at the urgent care. Patient verbalized understanding and agreement with plan. I am not able to prescribe or dispense any medication at this time due to the patient being on a treatment plan of not having found anything acutely wrong with patient. Decision to Disposition Date: Dec 07, 2018 Decision to Disposition Time: 17:03 Depart Departure Latest Vital Signs Vital Signs Date Time Temp Pulse Resp B/P (MAP) Pulse Ox O2 Delivery O2 Flow Rate FiO2 12/07/18 15:33 98.5 120 24 128/96 95 Room Air Impression: Primary Impression: Right flank pain Condition: Improved Disposition: HOME OR SELF-CARE Referrals: JEWELL SEYMOUR APRN FERRYBOAT CAPTAIN-C (PCP) New Scripts Lidocaine (Lidocaine) 5 % Adh..patch 1 PATCH TD DAILY, #10 PATCH apply in the morning and then remove 12 hours later. Prov: CARLOTTA LEA 12/07/18 Patient Instructions: Flank Pain (ED) Additional Instructions: Limit activity by pain. Get plenty of rest. Follow up with your primary care provider in the next 2-3 days. Continue with normal diet. CARLOTTA LEA Dec 07, 2018 15:40
[2018-12-07] MEDS ORDERED: NS(*) 0.9% 1000 ML BAG 1,000 ML IV ONE (15:45)
[2018-12-07] MEDS ORDERED: IOPAMIDOL 76% 100 ML INFUS BTL 100 ML ONE (15:59)
--- NOTE | 2018-12-07 16:50 | RADIOLOGY IMAGING REPORT ---
FACILITY: [facility] PATIENT NAME: Michelle Feldman : 1990 MR: [id number] V: [id number] EXAM DATE: ORDERING PHYSICIAN: CARLOTTA LEA TECHNOLOGIST: Location: [facility] [place] Patient: Michelle Feldman : 1990 Visit/Account:[id number] Date of Sevice: 12/07/2018 CT abdomen and pelvis with IV contrast Indication: Right flank pain. Comparison: 08/23/2018.. Technique: Axial CT images were obtained through the abdomen and pelvis during injection of nonioni c iodinated intravenous contrast. Reformatted coronal and sagittal images were also obtained. One of the following dose optimization techniques was utilized in the performance of this exam: Autom ated exposure control; adjustment of the mA and/or kV according to the patient's size; or use of an i terative reconstruction technique. Specific details can be referenced in the facility's radiology C T exam operational policy. Contrast: 75 ml of Isovue-370 IV contrast. Findings: Lower lung tam: Limited views lower lung field are unremarkable. Liver: No focal parenchymal abnormality of the liver. Biliary: Status post cholecystectomy. The biliary system is unremarkable. Pancreas: Normal appearance. Spleen: Normal appearance. Adrenal glands: Unremarkable. Kidneys / retroperitoneum: No evidence of nephrolithiasis or hydronephrosis. Right kidney again shows scarring. No focal lesions are seen in the kidneys. Bowel / peritoneum / mesenteries: The colon shows no focal normality. The cecum, ascending colon prox imal transverse colon is decompressed without focal abnormality or inflammation. The appendix is norm al. The small bowel shows no focal abnormality or obstruction. The stomach is unremarkable. No free air, free collections or areas of inflammation. Very small amount of free fluid seen in pelvi s likely physiologic. Lymph node assessment: No pathologic adenopathy identified. Pelvic structures: The right ovary again shows a 2.5 cm cyst is likely physiologic. The ovaries ar e otherwise unremarkable. Status post hysterectomy. The remaining pelvic structures visualized within normal limits. Vessels: No significant atherosclerotic calcifications seen throughout a nonaneurysmal abdominal aort a and branches. Musculoskeletal / Body wall: No acute or aggressive osseous abnormality. Mild degenerative changes of spine. IMPRESSION: 1. No acute intra-abdominal abnormality 2. Other chronic findings as above. Report Dictated By: Gio Stacy at 12/07/2018 4:35 PM Report E-Signed By: Gio Stacy at 12/07/2018 4:43 PM WSN:[id number]
[2018-12-07] MEDS ORDERED: LIDOCAINE 5% PATCH TP ONE (17:05)
[2018-12-07] MEDS ORDERED: LIDO700A19 TD (17:08)
[2018-12-07] MEDS ORDERED: PATCH REMOVAL 1 EA TOP SCH (21:00)
[2018-12-14] MEDS ORDERED: ORP100 PO (14:10)
[2018-12-14] MEDS ORDERED: PREG50CA48 PO (16:43)
== END 2018-12-07 17:22 | disposition home or self-care (01) ==
LOC: ER 15:58
DX: R10.9 Unspecified abdominal pain (principal)
CPT/HCPCS: 74177; 96360; 99284; J7030; Q9967

== ENCOUNTER → 2018-12-07 | Outpatient (REF) | payer MEDICARE, MEDICAID ==
[2018-01-14 09:13] VITALS: BMI 41.1
[~2018-12-07] MED LIST changes: +LIDO700A19 TD
[2018-12-07 14:53] LABS: PLATELET COUNT, AUTOMATED 328 K/uL (150-450)
== END ==
LOC: ZZSTITCHES 14:39
PROVIDERS: ATTEND Physician Assistant
DX: M54.5 Low back pain (principal); R19.8 Other specified symptoms and signs involving the digestive system and abdomen; R14.0 Abdominal distension (gaseous)
CPT/HCPCS: 82040; 82247; 82310; 82374; 82435; 82565; 82947; 83690; 84075; 84132; 84155; 84295; 84450; 84460; 84520; 85025; 86140